=== PATIENT | male | born 1935 | race Caucasian/White ===

== ENCOUNTER → 2016-03-19 | Outpatient (CLI) | payer BC ==
[~2016-03-19] MED LIST: ACET-1138 PO; ASCO10003 PO; ASPEC325 PO; BUPR-79 PO; CYAN1TAB18 PO; DRGTP12 EX; FLUC100T4 PO; HYDR-5688 PO; LYR100 PO; METO25TA3 PO; MULT-506 PO; NIAC500T11 PO; NTRGSL/4 UT; OXYC-643 PO; OXYC1TAB3 PO; PANT40TA PO; POLYSOL OP; PYRI100T4 PO; RXC5 PO; SERT50TA PO; SILO8CAP PO; TAMS0.4C38 PO; TPRSR/25 PO; VITA1TAB4 PO; VTMB12 PO; ZVR400 PO; vitamin d3 PO
[2016-03-19 10:08] LABS: BASO ABS # 0.14 K/uL (0-0.2); BASOPHIL % 1.7 % (0-2); COMPLETE YES; ECHINOCYTES 1+; EOSINOPHIL % 1.7 %; LYMPH ABS # 0.14 K/uL (1.2-3.4); LYMPHOCYTE % 1.7 %; META ABS # 0.14 K/uL (0-0); METAMYELOCYTE % 1.7 %; MYELOCYTE % 3.5 %; POLYCHROMASIA 1+; TOXIC GRANULATION 1+; VACUOLIZATION 1+
[2016-03-21 12:08] LABS: WHITE BLOOD COUNT 9.69 K/uL (4.8-10.8)
[2016-03-21 12:09] LABS: HEMATOCRIT 38.7 % (42-52); MEAN CELL VOLUME 96.5 fL (80-100); MEAN CORPUSCULAR HEMOGLOBIN 34.2 pg (25-34); RED BLOOD COUNT 4.01 M/uL (4.7-6.1)
[2016-03-21 12:10] LABS: BASO % 2.7 %; EOS % 0.8 %; MEAN CORPUSCULAR HGB CONC 35.4 g/dl (32-36); MEAN PLATELET VOLUME 11.2 fL (7.4-10.4); PLATELET COUNT 133 K/uL (130-400)
== END | disposition home or self-care (01) ==
LOC: C.LAB 07:45
PROVIDERS: ATTEND Internal Medicine Hematology & Oncology
DX: Z85.72 Personal history of non-Hodgkin lymphomas (principal)

== ENCOUNTER → 2016-03-21 | Outpatient (CLI) | payer BC ==
[~2016-03-21] MED LIST changes: -HYDR-5688 PO; -LYR100 PO; -VTMB12 PO
[2016-03-21 13:02] LABS: HEMATOCRIT 41.2 % (42-52); MEAN CELL VOLUME 93.2 fL (80-100); MEAN CORPUSCULAR HEMOGLOBIN 31.4 pg (25-34); MEAN CORPUSCULAR HGB CONC 33.7 g/dl (32-36); MEAN PLATELET VOLUME 11.1 fL (7.4-10.4); PLATELET COUNT 111 K/uL (130-400); RED BLOOD COUNT 4.42 M/uL (4.7-6.1); WHITE BLOOD COUNT 9.18 K/uL (4.8-10.8)
[2016-03-21 14:08] LABS: DOHLE BODIES 1+; TEAR DROP CELLS 1+
[2016-03-21 14:34] LABS: COMPLETE YES; EOSINOPHIL % 1.7 %; META ABS # 0.24 K/uL (0-0); METAMYELOCYTE % 2.6 %; MYELOCYTE % 2.6 %; NEUTROPHILS % 81.9 %
== END | disposition home or self-care (01) ==
LOC: C.LAB 09:58
PROVIDERS: ATTEND Internal Medicine Hematology & Oncology
DX: Z85.72 Personal history of non-Hodgkin lymphomas (principal)

== ENCOUNTER 2016-03-22 06:41 | Observation (INO) | payer BC ==
[2016-03-20 21:11] VITALS: BMI 24.0
--- NOTE | 2016-03-21 10:28 | PAT Medication Instructions ---
Service Date Mar 21, 2016. Current Home Medication List Acyclovir (Acyclovir), 400 MG PO BID Ascorbic Acid (Vitamin C), 1,000 MG PO QAM Bupropion (Wellbutrin Sr), 150 MG PO QAM Cyanocobalamin (B-12), 1 TAB PO QAM Fluconazole (Diflucan), 100 MG PO QAM Metoprolol Succ (Toprol Xl) (Toprol-Xl), 12.5 MG PO QAM Multivitamin (Multivitamin), 1 TAB PO QAM Nitroglycerin (Nitrostat), 0.4 MG UT PRN Pantoprazole Sodium (Protonix), 40 MG PO QAM Pyridoxine (Vitamin B6), 100 MG PO QAM Tamsulosin Hcl (Flomax), 0.4 MG PO HS Vitamin E (Vitamin E), 1 TAB PO QAM Medication Instructions For Your Scheduled Surgery - Continue as directed: Nitroglycerin (Nitrostat), 0.4 MG UT PRN - Hold the following medications the morning of surgery: Ascorbic Acid (Vitamin C), 1,000 MG PO QAM Vitamin E (Vitamin E), 1 TAB PO QAM Multivitamin (Multivitamin), 1 TAB PO QAM Cyanocobalamin (B-12), 1 TAB PO QAM Pyridoxine (Vitamin B6), 100 MG PO QAM - Take the following medications the morning of surgery with a sip of water OTHERWISE NOTHING TO EAT OR DRINK AFTER MIDNIGHT: Metoprolol Succ (Toprol Xl) (Toprol-Xl), 12.5 MG PO QAM Pantoprazole Sodium (Protonix), 40 MG PO QAM Fluconazole (Diflucan), 100 MG PO QAM Acyclovir (Acyclovir), 400 MG PO BID Bupropion (Wellbutrin Sr), 150 MG PO QAM - Take the following medications as scheduled the night before surgery: Tamsulosin Hcl (Flomax), 0.4 MG PO HS Acyclovir (Acyclovir), 400 MG PO BID If you have any questions please call us at [phone] (Renetta Cormier PA-C ) or [phone] or [phone]
[2016-03-21 12:22] LABS: BUN/CREATININE RATIO 12.6 (10-20); CALCIUM 8.9 mg/dl (8.5-10.1); POTASSIUM 4.1 mmol/L (3.5-5.1)
--- NOTE | 2016-03-21 17:00 | HISTORY & PHYSICAL EXAMINATION ---
DATE OF ADMISSION: 03/22/2016 CHIEF COMPLAINT: Right Achilles tendon tear. HISTORY OF PRESENT ILLNESS: The patient is an 80-year-old gentleman seen and evaluated in our office for a right Achilles injury. MRI confirmed a right Achilles tendon repair. Due to his age and other medical comorbidities, the procedure, he is scheduled for a right Achilles tendon repair to be performed at the hospital. PAST MEDICAL HISTORY: Coronary artery disease, non-Hodgkin's lymphoma, melanoma. PAST SURGICAL HISTORY: Hernia repair, left knee replacement, right shoulder surgery, left shoulder, MOHS surgery x5 on his head. MEDICATIONS: Include Bupropion SA 150 mg daily, metoprolol 25 mg daily, acyclovir 400 mg twice daily, fluconazole 100 mg daily, tamsulosin 0.4 mg daily, vitamin C 1000 mg daily, vitamin B12 daily, vitamin E 400 IU daily, vitamin B6 daily. ALLERGIES: BAND-AID. SOCIAL HISTORY AND REVIEW OF SYSTEMS: Noncontributory. PHYSICAL EXAMINATION: GENERAL: Well-nourished, well-developed elderly male who appears stated age. HEENT: Normocephalic, atraumatic, extraocular movements intact, oropharynx pink and moist. NECK: Supple without adenopathy. LUNGS: Clear to auscultation bilaterally. HEART: Regular rate and rhythm. ABDOMEN: Soft, nontender, nondistended. EXTREMITIES: The upper extremity within normal limits. There is an obvious palpable defect in the Achilles tendon. He has a positive Lee sign. ASSESSMENT: Right Achilles tendon rupture. PLAN: Risks versus benefits were discussed. Consent was obtained. The patient's primary care physician is Dr. Ballesteros. Will proceed with right Achilles tendon repair upon preoperative workup and medical clearance. RHONA
[~2016-03-22] VITALS: Ht 167.6 cm; Wt 69.1 kg
[2016-03-22] VITALS (9 sets, daily range): BP systolic 103–130; BP diastolic 64–92; PULSE 75–98; TEMP 36.6–36.7; O2SAT 91–99; Ht 167.6 cm; Wt 69.1 kg
[~2016-03-22 06:41] MED LIST changes: -ACET-1138 PO; -ASPEC325 PO; +BUPIVACAINE 0.5 % 5 MG/1 ML PF 10ML VIAL ONE; +CEFAZOLIN 1000MG/55 ML D5W IV SCH; -DRGTP12 EX; +LACTATED RINGER'S 1000ML 1,000 ML IV SCH; -NIAC500T11 PO; -OXYC-643 PO; -OXYC1TAB3 PO; -POLYSOL OP; -RXC5 PO; -SERT50TA PO; -SILO8CAP PO; -TPRSR/25 PO; -vitamin d3 PO
[2016-03-22] MEDS ORDERED: LIDOCAINE HCL 2% 2 ML VIAL (20MG/ML) ONE (07:42)
[2016-03-22] MEDS ORDERED: PROPOFOL IV EMULSION 10 MG/ML 20 ML VIAL IV ONE (07:42)
[2016-03-22] MEDS ORDERED: FENTANYL CITRATE INJ 50 MCG/1 ML 2 ML VIAL ONE (07:42)
[2016-03-22] MEDS ORDERED: SUCCINYLCHOLINE CHLORIDE 20 MG/ML 10 ML VIAL IV ONE (07:42)
[2016-03-22] MEDS ORDERED: ONDANSETRON INJ 2 MG/ML 2 ML VIAL ONE (07:42)
--- NOTE | 2016-03-22 07:51 | History & Physical Bridge Note ---
H&P Re-Evaluation Bridge Note: I have examined the patient, reviewed the History & Physical and in the interval since the performance of the History & Physical I have noted the following changes of clinical significance: No changes noted
[2016-03-22] MEDS ORDERED: LACTATED RINGER'S 1000ML 1,000 ML IV PRN (07:52)
[2016-03-22] MEDS ORDERED: ONDANSETRON INJ 2 MG/ML 2 ML VIAL IV PRN ×2 (08:00→09:15)
[2016-03-22] MEDS ORDERED: EpHEDrine SULFATE 50MG/5ML SYR ONE (08:29)
[2016-03-22] MEDS ORDERED: PHENYLEPHRINE 100MCG/ML 5ML SYR ONE (08:29)
--- NOTE | 2016-03-22 08:41 | [facility] Post Operative Brief Note ---
Immediate Operative Summary Operative Date Mar 22, 2016. Pre-Operative Diagnosis achilloe ruptire r Post-Operative Diagnosis same Procedure(s) Performed repair above Surgeon Bertha Measurement Psychologist Surgeon(s) Milena Estimated Blood Loss 10cc Findings rupture Specimens none Disposition Recovery Room / PACU
[2016-03-22] MEDS ORDERED: BUPIVACAINE 0.25% ONE (08:50)
--- NOTE | 2016-03-22 08:59 | OPERATIVE REPORT ---
DATE OF OPERATION: 03/22/2016 PREOPERATIVE DIAGNOSIS: Achilles tendon rupture, right. POSTOPERATIVE DIAGNOSIS: Achilles tendon rupture, right. PROCEDURE: Repair of Achilles tendon, right. SURGEON: Dr. Stone. NANNY CAREGIVER: Adalberto Abbott PA-C. ANESTHESIA: Spinal. COMPLICATIONS: None. Mr. Abbott was essential through all portions of the case including prepping, draping, exposure, sales service assistant, wound closure, dressing and sling application. Following induction of adequate general anesthesia, the patient was placed prone on the operating table and the right leg was prepped and draped in usual sterile manner. Limb was exsanguinated with elevation and the tourniquet was inflated to 300 mmHg. Longitudinal incision made over the palpable Achilles defect. Subcutaneous tissue was sharply dissected, electrocautery was used for hemostasis. Peritenon was opened and hemorrhage was noted about the complete intrasubstance rupture of the Achilles tendon. This hemorrhage was removed. Using #5 FiberWire in a modified De La Vega fashion, the Achilles tendon was repaired. Additional reinforcing sutures using 0 Vicryl [id number] sutures were carried out peripherally. The wound was irrigated and closed using 2-0 Dexon and nylon. Sterile dressing of Adaptic, 4 x 4's, sterile Webril and a posterior plaster splint was applied. The patient tolerated the procedure well. I attest to the content of the Intraoperative Record and any orders documented therein. Any exceptio ns are noted below.
[2016-03-22] MEDS: FENTANYL CITRATE INJ 50 MCG/1 ML 2 ML VIAL IV PRN ×4 (09:11→09:26)
[2016-03-22] MEDS ORDERED: ALUMINUM/MAGNESIUM/SIMETH (MAALOX MAX) 30 ML UDC PO PRN (09:15)
[2016-03-22] MEDS ORDERED: ZOLPIDEM TARTRATE 5 MG TAB PO PRN (09:15)
[2016-03-22] MEDS ORDERED: NITROGLYCERIN 0.4 MG SL PER TAB CHARGE UT PRN (09:15)
[2016-03-22] MEDS ORDERED: METOCLOPRAMIDE HCL INJ 5 MG/ML 2 ML VIAL IV PRN (09:15)
[2016-03-22] MEDS ORDERED: MAGNESIUM HYDROXIDE SUSP 30 ML UDC PO PRN (09:15)
[2016-03-22] MEDS ORDERED: HYDROmorphone INJ 1 MG/ML SYR ONE (09:27)
[2016-03-22] MEDS ORDERED: NURSING VERBAL MED ORDER ONE ×2 (09:30→16:00)
--- NOTE | 2016-03-22 10:03 | Anesthesiology Progress Note ---
Anesthesia Post Op Note Date & Time Mar 22, 2016 at 10:02 Vital Signs Pain Intensity: 5.0 Vital Signs Past 12 Hours Date Time Temp Pulse Resp B/P Pulse Ox O2 Delivery O2 Flow Rate FiO2 03/22/16 09:40 36.5 03/22/16 09:38 110/72 03/22/16 09:37 83 16 94 03/22/16 09:37 83 03/22/16 09:34 114/79 03/22/16 09:32 84 17 03/22/16 09:32 85 17 99 03/22/16 09:28 109/67 03/22/16 09:27 81 16 96 03/22/16 09:27 81 03/22/16 09:23 118/71 03/22/16 09:22 80 03/22/16 09:22 80 16 98 03/22/16 09:18 123/78 03/22/16 09:17 81 14 99 03/22/16 09:17 81 14 03/22/16 09:13 140/89 03/22/16 09:12 84 16 99 03/22/16 09:12 84 16 03/22/16 09:08 118/76 03/22/16 09:07 85 15 98 03/22/16 09:07 85 15 03/22/16 09:05 115/72 03/22/16 09:02 36.3 82 16 115/72 99 Nasal Cannula 3 03/22/16 07:20 36.7 98 20 130/92 93 Room Air Notes Mental Status: alert / awake / arousable, participated in evaluation Pt Amnestic to Procedure: Yes Nausea / Vomiting: adequately controlled Pain: adequately controlled, improving with treatment Airway Patency, RR, SpO2: stable & adequate BP & HR: stable & adequate Hydration State: stable & adequate Anesthetic Complications: no major complications apparent Pt doing well. Pain improving.
[2016-03-22] MEDS ORDERED: OXYCODONE HCL IR 5 MG TAB (IMMEDIATE RELEASE) ONE (10:39)
[2016-03-22] MEDS: FERROUS GLUCONATE 324 MG TAB PO SCH ×2 (12:30→17:52)
[2016-03-22] MEDS: D5W AND 1/2NSS + 20MEQ KCL 1,000 ML IV SCH ×2 (13:01→21:39)
[2016-03-22] MEDS: ACETAMINOPHEN 500 MG TAB PO SCH ×2 (13:01→21:38)
[2016-03-22] MEDS: KETOROLAC TROMETHAMINE 15 MG/ML VIAL IV. SCH ×2 (13:10→19:22)
[2016-03-22] MEDS ORDERED: IV FLUIDS COMPLETED PRN (14:30)
[2016-03-22] MEDS: CEFAZOLIN IV 1,000 MG in DEXTROSE 5% 50ML 50 ML IV SCH ×2 (15:21→23:59)
[2016-03-22] MEDS: OXYCODONE HCL IR 5 MG TAB (IMMEDIATE RELEASE) PO PRN ×2 (15:21→21:43)
[2016-03-22] MEDS ORDERED: MoRPHine SULFATE 2 MG/ML CARP IV PRN (16:15)
[2016-03-22] MEDS: TAMSULOSIN HCL 0.4 MG CAP PO SCH (21:00)
[2016-03-22] MEDS: ACYCLOVIR 400 MG TAB PO SCH (21:39)
[2016-03-23] VITALS (7 sets, daily range): BP systolic 119–153; BP diastolic 47–81; PULSE 81–88; TEMP 36.4–36.9; O2SAT 92–100
[2016-03-23] MEDS: KETOROLAC TROMETHAMINE 15 MG/ML VIAL IV. SCH ×2 (02:28→08:06)
[2016-03-23] MEDS: ACETAMINOPHEN 500 MG TAB PO SCH ×3 (06:12→21:29)
--- NOTE | 2016-03-23 07:43 | Orthopedic Progress Note ---
Orthopedic Progress Note Date of Service Mar 23, 2016. Subjective Post OP Day: 1 Objective N/V intact, dressing C/D/I, toes mobile Date Time Temp Pulse Resp B/P Pulse Ox O2 Delivery O2 Flow Rate FiO2 03/23/16 02:47 36.4 82 14 119/47 94 Room Air 03/22/16 23:56 36.7 80 14 112/64 94 Room Air 03/22/16 19:20 Room Air 03/22/16 14:55 36.6 76 20 116/75 95 Room Air 03/22/16 13:15 75 16 117/71 91 Room Air 03/22/16 12:15 77 16 114/69 99 03/22/16 11:17 78 16 103/64 97 Nasal Cannula 2.0 03/22/16 10:52 95 Nasal Cannula 3.0 03/22/16 10:45 78 16 105/64 96 Nasal Cannula 2.0 03/22/16 10:15 36.7 83 16 106/66 95 Nasal Cannula 3.0 03/22/16 10:15 95 Nasal Cannula 3.0 03/22/16 10:01 82 15 95 03/22/16 10:01 82 15 03/22/16 09:58 107/66 03/22/16 09:56 82 14 94 03/22/16 09:56 81 14 03/22/16 09:53 111/71 03/22/16 09:51 82 13 03/22/16 09:51 82 13 93 03/22/16 09:49 104/62 03/22/16 09:46 82 20 03/22/16 09:46 82 20 96 03/22/16 09:43 108/68 03/22/16 09:41 84 13 96 03/22/16 09:41 89 13 03/22/16 09:40 36.5 03/22/16 09:38 110/72 03/22/16 09:37 83 16 94 03/22/16 09:37 83 03/22/16 09:34 114/79 03/22/16 09:32 84 17 03/22/16 09:32 85 17 99 03/22/16 09:28 109/67 03/22/16 09:27 81 16 96 03/22/16 09:27 81 03/22/16 09:23 118/71 03/22/16 09:22 80 1/5/17 09:22 80 16 98 03/22/16 09:18 123/78 03/22/16 09:17 81 14 99 03/22/16 09:17 81 14 03/22/16 09:13 140/89 03/22/16 09:12 84 16 99 03/22/16 09:12 84 16 03/22/16 09:08 118/76 03/22/16 09:07 85 15 98 03/22/16 09:07 85 15 03/22/16 09:05 115/72 03/22/16 09:02 36.3 82 16 115/72 99 Nasal Cannula 3 Assessment & Plan Assessment: 80 yo male stable POD #1 s/p right achilles tendon repair Plan: 1. Med management 2. DVT prophylaxis- ASA, TEDs, SCDs 3. PT/OT 4. D/C planning- pt interested in rehab
[2016-03-23] MEDS ORDERED: MULTIVITAMIN TAB PO SCH (09:00)
[2016-03-23] MEDS ORDERED: PANTOprazole SOD 40 MG TAB PO SCH (09:00)
--- NOTE | 2016-03-23 09:06 | Anesthesiology Progress Note ---
Anesthesia Post Op Note Date & Time Mar 23, 2016 at 09:05 Vital Signs Pain Intensity: 4.0 Vital Signs Past 12 Hours Date Time Temp Pulse Resp B/P Pulse Ox O2 Delivery O2 Flow Rate FiO2 03/23/16 02:47 36.4 82 14 119/47 94 Room Air 03/22/16 23:56 36.7 80 14 112/64 94 Room Air Notes Mental Status: alert / awake / arousable, participated in evaluation Pt Amnestic to Procedure: Yes Nausea / Vomiting: adequately controlled Pain: adequately controlled Airway Patency, RR, SpO2: stable & adequate BP & HR: stable & adequate Hydration State: stable & adequate Anesthetic Complications: no major complications apparent
[2016-03-23] MEDS: ASPIRIN 325 MG ECTAB PO SCH (09:22)
[2016-03-23] MEDS: MULTIVITAMIN TAB PO SCH (09:22)
[2016-03-23] MEDS: FERROUS GLUCONATE 324 MG TAB PO SCH ×4 (09:22→17:10)
[2016-03-23] MEDS: FLUCONAZOLE 100 MG TAB PO SCH (09:22)
[2016-03-23] MEDS: PANTOprazole SOD 40 MG TAB PO SCH (09:23)
[2016-03-23] MEDS: METOPROLOL SUCC 25MG EXT REL TAB PO SCH (09:23)
[2016-03-23] MEDS: PYRIDOXINE HCL 50 MG TAB PO SCH (09:24)
[2016-03-23] MEDS: ACYCLOVIR 400 MG TAB PO SCH ×2 (09:24→21:29)
[2016-03-23] MEDS: BuPROPion SR 150 MG TABCR PO SCH (09:24)
[2016-03-23] MEDS: OXYCODONE HCL IR 5 MG TAB (IMMEDIATE RELEASE) PO PRN (17:14)
[2016-03-23] MEDS: TAMSULOSIN HCL 0.4 MG CAP PO SCH (21:28)
[2016-03-24] MEDS: ACETAMINOPHEN 500 MG TAB PO SCH ×3 (05:57→21:08)
[2016-03-24 07:50] VITALS: BP 138/80; PULSE 80; TEMP 36.6; O2SAT 94
--- NOTE | 2016-03-24 08:14 | Orthopedic Progress Note ---
Orthopedic Progress Note Date of Service Mar 24, 2016. Subjective Post OP Day: 2 Reports: feeling well, pain controlled w PO medications, Denies: SOB, calf pain , chest pain, complaints, light headedness, nausea / vomiting Objective N/V intact, splint C/D/I, capillary refill less than 2 sec., dressing C/D/I, A& O x3, toes mobile Date Time Temp Pulse Resp B/P Pulse Ox O2 Delivery O2 Flow Rate FiO2 03/23/16 23:47 36.6 81 16 153/81 95 Room Air 03/23/16 23:40 Room Air 03/23/16 15:45 Room Air 03/23/16 14:55 36.8 88 16 144/76 92 Room Air 03/23/16 12:40 36.9 86 18 150/78 100 Room Air 03/23/16 10:25 95 Room Air 03/23/16 09:48 Room Air Assessment & Plan Assessment: 80 yo male stable POD #2 s/p right achilles tendon repair Plan: 1. Med management 2. DVT prophylaxis- ASA, TEDs, SCDs 3. PT/OT 4. D/C planning- awaiting approval for [facility] Discharge Planning Discharge Planning: uncertain
--- NOTE | 2016-03-24 08:17 | Discharge Instructions ---
Discharge Instructions Admission Reason for Admission: Right Heel Achilles Tendon Tear Discharge Discharge Diagnosis / Problem: s/p Right Achilles tendon repair Discharge Goals Goal(s): Decrease discomfort, Improve function, Increase independence Activity Recommendations Activity Level: Up Ad Clarisa Therapies: Weight Bearing Status (NWB right leg) Weightbearing Status: Right non-weightbearing . Additional Information Patient informed of condition: Yes Advance Directives: No DNR: No Level of Care: Acute Rehab Communicable Disease: No Prognosis: Stable Instructions / Follow-Up Instructions / Follow-Up ACTIVITY RECOMMENDATIONS: * You should remain non-weightbearing on your right leg SPECIAL CARE INSTRUCTIONS: * Some drainage onto the dressing is normal and is no cause for alarm. * Some swelling is natural especially after walking. When resting, keep your foot elevated above the level of your heart. * Call the doctor's office at if you notice increased drainage, fever over 101 degrees F. or severe constant pain. BANDAGE: * Leave bandage/cast in place unless otherwise directed. * Keep bandage/cast dry at all times. FOLLOW UP VISIT: If appointment is not already scheduled: Please call [facility] [place] to make a follow-up appointment after your surgery at . Current Hospital Diet Patient's current hospital diet: Regular Diet Discharge Diet Recommended Diet: Regular Diet Procedures Procedures Performed: repair above Pending Studies Studies pending at discharge: no Medical Emergencies . Who to Call and When: Medical Emergencies: If at any time you feel your situation is an emergency, please call [phone] immediately. . Non-Emergent Contact Non-Emergency issues call your: Primary Care Provider, Surgeon . . "Provider Documentation" section prepared by Tyrese Collins. Core Measure Problem Core Measures: None
[2016-03-24] MEDS ORDERED: ACET-1138 PO (08:18)
[2016-03-24] MEDS ORDERED: RXC5 PO (08:18)
[2016-03-24] MEDS ORDERED: ASPEC325 PO (08:18)
[2016-03-24] MEDS: MULTIVITAMIN TAB PO SCH (10:25)
[2016-03-24] MEDS: FERROUS GLUCONATE 324 MG TAB PO SCH ×3 (10:25→17:24)
[2016-03-24] MEDS: BuPROPion SR 150 MG TABCR PO SCH (10:26)
[2016-03-24] MEDS: METOPROLOL SUCC 25MG EXT REL TAB PO SCH (10:26)
[2016-03-24] MEDS: ASPIRIN 325 MG ECTAB PO SCH (10:26)
[2016-03-24] MEDS: ACYCLOVIR 400 MG TAB PO SCH ×2 (10:27→21:07)
[2016-03-24] MEDS: PANTOprazole SOD 40 MG TAB PO SCH (10:27)
[2016-03-24] MEDS: PYRIDOXINE HCL 50 MG TAB PO SCH (10:27)
[2016-03-24] MEDS: FLUCONAZOLE 100 MG TAB PO SCH (10:28)
[2016-03-24 11:45] VITALS: BP 140/82; PULSE 96; TEMP 36.9; O2SAT 96
[2016-03-24 16:09] VITALS: BP 130/79; PULSE 89; TEMP 37.1; O2SAT 96
[2016-03-24] MEDS: TAMSULOSIN HCL 0.4 MG CAP PO SCH (21:08)
[2016-03-24 23:09] VITALS: BP 158/96; PULSE 76; TEMP 36.6; O2SAT 96
[2016-03-25] MEDS: OXYCODONE HCL IR 5 MG TAB (IMMEDIATE RELEASE) PO PRN (01:19)
[2016-03-25] MEDS: ACETAMINOPHEN 500 MG TAB PO SCH (05:53)
--- NOTE | 2016-03-25 06:29 | Orthopedic Progress Note ---
Orthopedic Progress Note Date of Service Mar 25, 2016. Subjective Post OP Day: 3 Reports: feeling well, pain controlled w PO medications, Denies: SOB, calf pain , chest pain, complaints, light headedness, nausea / vomiting Objective N/V intact, splint C/D/I, capillary refill less than 2 sec., dressing C/D/I, A& O x3, toes mobile Date Time Temp Pulse Resp B/P Pulse Ox O2 Delivery O2 Flow Rate FiO2 03/24/16 23:09 36.6 76 14 158/96 96 Room Air 03/24/16 19:30 Room Air 03/24/16 16:09 37.1 89 16 130/79 96 Room Air 03/24/16 16:00 Room Air 03/24/16 11:45 36.9 96 16 140/82 96 Room Air 03/24/16 07:50 94 Room Air 03/24/16 07:50 36.6 80 16 138/80 94 Room Air Assessment & Plan Assessment: 80 yo male stable POD #3 s/p right achilles tendon repair Plan: 1. Med management 2. DVT prophylaxis- ASA, TEDs, SCDs 3. PT/OT 4. D/C planning- awaiting approval for [facility], will check w/ SS, if not approved , patient would like d/c home with PT Discharge Planning Discharge Planning: uncertain
--- NOTE | 2016-03-25 06:35 | Discharge Instructions ---
Discharge Instructions Admission Reason for Admission: Right Heel Achilles Tendon Tear Discharge Discharge Diagnosis / Problem: right achilles tendon repair Discharge Goals Goal(s): Decrease discomfort, Improve function, Increase independence Activity Recommendations Activity Limitations: as noted below Weightbearing Status: Right non-weightbearing . Instructions / Follow-Up Instructions / Follow-Up ACTIVITY RECOMMENDATIONS: * You should remain non-weightbearing on your right leg using walker SPECIAL CARE INSTRUCTIONS: * Some drainage onto the dressing is normal and is no cause for alarm. * Some swelling is natural especially after walking. When resting, keep your foot elevated above the level of your heart. * Call the doctor's office at if you notice increased drainage, fever over 101 degrees F. or severe constant pain. BANDAGE: * Leave bandage/cast in place unless otherwise directed. * Keep bandage/cast dry at all times. FOLLOW UP VISIT: If appointment is not already scheduled: Please call [facility] [place] to make a follow-up appointment after your surgery at . Current Hospital Diet Patient's current hospital diet: Regular Diet Discharge Diet Recommended Diet: Regular Diet Procedures Procedures Performed: repair above Pending Studies Studies pending at discharge: no Medical Emergencies . Who to Call and When: Medical Emergencies: If at any time you feel your situation is an emergency, please call [phone] immediately. . Non-Emergent Contact Non-Emergency issues call your: Primary Care Provider, Surgeon . "Provider Documentation" section prepared by Tyrese Collins. VTE Core Measure Inpt VTE Proph given/why not?: Shelia Bray
[2016-03-25 07:46] VITALS: BP 112/76; PULSE 80; TEMP 36.9; O2SAT 94
[2016-03-25] MEDS: FERROUS GLUCONATE 324 MG TAB PO SCH (08:30)
[2016-03-25] MEDS: FLUCONAZOLE 100 MG TAB PO SCH (08:39)
[2016-03-25] MEDS: MULTIVITAMIN TAB PO SCH (08:39)
[2016-03-25] MEDS: PYRIDOXINE HCL 50 MG TAB PO SCH (08:40)
[2016-03-25] MEDS: ASPIRIN 325 MG ECTAB PO SCH (08:40)
[2016-03-25] MEDS: PANTOprazole SOD 40 MG TAB PO SCH (08:40)
[2016-03-25] MEDS: ACYCLOVIR 400 MG TAB PO SCH (08:41)
[2016-03-25] MEDS: BuPROPion SR 150 MG TABCR PO SCH (08:41)
[2016-03-25] MEDS: METOPROLOL SUCC 25MG EXT REL TAB PO SCH (08:42)
[2016-03-25 09:37] VITALS: BP 112/76; PULSE 80; TEMP 36.9; O2SAT 94
--- NOTE | 2016-03-30 08:34 | DISCHARGE SUMMARY ---
CHIEF COMPLAINT: Right ankle pain. Please see complete history and physical examination. HOSPITAL COURSE: The patient underwent right Achilles tendon repair without complication. He tolerated the procedure well and was discharged to recovery room in stable condition. His postoperative course was relatively uneventful. Per the patient and his , they were trying to have the patient discharged to some type of nursing or rehab facility due to his age, his recent surgery, and his other medical comorbidities, however, this was denied and the patient ended up going home with home health on postoperative day 3. He tolerated physical therapy reasonably well as he was ambulating with a walker and nonweightbearing on the right lower extremity. He was started on aspirin for DVT prophylaxis. He was discharged home on postoperative day 3 and will continue with home health services. He will follow up in our office in approximately 10-14 days for his initial postop evaluation.
[2016-07-05] MEDS ORDERED: OXYC1TAB3 PO (11:26)
[2016-11-28] MEDS ORDERED: NIAC500T11 PO (09:35)
[2016-11-28] MEDS ORDERED: TPRSR/25 PO (09:35)
[2016-11-28] MEDS ORDERED: OXYC-643 PO (09:35)
[2016-11-28] MEDS ORDERED: vitamin d3 PO (09:35)
[2016-11-28] MEDS ORDERED: POLYSOL OP (09:35)
[2016-11-28] MEDS ORDERED: SILO8CAP PO (09:35)
[2016-11-28] MEDS ORDERED: SERT50TA PO (09:35)
[2016-11-28] MEDS ORDERED: DRGTP12 EX (09:35)
== END 2016-03-25 10:30 | disposition home or self-care (01) ==
LOC: ENRESERVTM → ENRESERVDT → C.ACU 06:41 → C.3E 09:14 → UNDOADMOB 09:14
DX: S86.091A Other specified injury of right Achilles tendon, initial encounter (principal); X58.XXXA Exposure to other specified factors, initial encounter; I25.10 Atherosclerotic heart disease of native coronary artery without angina pectoris; Z96.652 Presence of left artificial knee joint

== ENCOUNTER → 2016-05-01 | Outpatient (CLI) | payer BC ==
[~2016-05-01] MED LIST changes: +ACET-1138 PO; +ASPEC325 PO; -BUPIVACAINE 0.5 % 5 MG/1 ML PF 10ML VIAL ONE; -CEFAZOLIN 1000MG/55 ML D5W IV SCH; +DRGTP12 EX; -LACTATED RINGER'S 1000ML 1,000 ML IV SCH; +NIAC500T11 PO; +OXYC-643 PO; +OXYC1TAB3 PO; +POLYSOL OP; +RXC5 PO; +SERT50TA PO; +SILO8CAP PO; +TPRSR/25 PO; +vitamin d3 PO
[2016-05-01 09:51] LABS: CHOLESTEROL/HDL RATIO 4.7
== END | disposition home or self-care (01) ==
LOC: C.LAB1850 07:50
PROVIDERS: ATTEND Internal Medicine Cardiovascular Disease
DX: E78.00 Pure hypercholesterolemia, unspecified (principal)

== ENCOUNTER → 2016-07-05 | Outpatient (CLI) | payer BC ==
[2016-07-05 09:29] LABS: ALT/SGPT 21 U/L (12-78); BLOOD UREA NITROGEN 15 mg/dl (7-18); BUN/CREATININE RATIO 16.2 (10-20); CARBON DIOXIDE 29 mmol/L (21-32); CHLORIDE 106 mmol/L (98-107); CREATININE 0.92 mg/dl (0.60-1.40); GLUCOSE 107 mg/dl (70-99); POTASSIUM 4.2 mmol/L (3.5-5.1); SODIUM 142 mmol/L (136-145)
[2016-07-05 09:48] LABS: ALB/GLOB RATIO 1.2 (0.9-2); ALKALINE PHOSPHATASE 28 U/L (45-117); AST/SGOT 15 U/L (15-37); CALCIUM 8.9 mg/dl (8.5-10.1)
== END | disposition home or self-care (01) ==
LOC: C.LAB 08:21
PROVIDERS: ATTEND Internal Medicine
DX: C85.10 Unspecified B-cell lymphoma, unspecified site (principal)

== ENCOUNTER → 2016-07-06 | Day surgery (SDC) | payer BC ==
[2016-07-05 11:30] VITALS: Ht 167.6 cm; Wt 70.5 kg
[~2016-07-06] VITALS: Ht 167.6 cm; Wt 70.5 kg
[~2016-07-06] MED LIST changes: -ACET-1138 PO; -ASPEC325 PO; +ATROPINE SULFATE 0.1 MG/ML 5ML SYR IV PRN; +BUPIVACAINE 0.5 % 5 MG/1 ML PF 10ML VIAL ONE; +CEFAZOLIN 1000MG/55 ML D5W IV SCH; +DEXAMETHASONE SOD INJ 4 MG/ML VIAL ONE; +EpHEDrine SULFATE INJ 50 MG/ML AMP IV PRN; +FENTANYL CITRATE INJ 50 MCG/1 ML 2 ML VIAL IV PRN; +FENTANYL CITRATE INJ 50 MCG/1 ML 2 ML VIAL ONE; +HYDROCODONE/ACETAMOPHEN 5/325MG TAB PO PRN; +LACTATED RINGER'S 1000ML 1,000 ML IV SCH; +LIDOCAINE HCL 1% 20 ML VIAL ONE; +LIDOCAINE HCL 2% 2 ML VIAL (20MG/ML) ONE; +METOCLOPRAMIDE HCL INJ 5 MG/ML 2 ML VIAL IV PRN; +MIDAZOLAM HCL 1 MG/ML 2ML VIAL ONE; +ONDANSETRON INJ 2 MG/ML 2 ML VIAL IV PRN; +ONDANSETRON INJ 2 MG/ML 2 ML VIAL ONE; +OXYCODONE/ACETAMINOPHEN 5-325 TAB PO PRN; +PHENOL EZ SWABS 89% APPLICATOR EX ONE; +PROPOFOL IV EMULSION 10 MG/ML 20 ML VIAL IV ONE; -RXC5 PO; +SILVER SULFADIAZINE 1% CR 50 GM JAR EXT ONE; +SODIUM CHLORIDE 0.9% 1000ML 1,000 ML IV SCH
--- NOTE | 2016-07-06 12:53 | Discharge Instructions-SurgCtr ---
Discharge Instructions Date of Service Jul 06, 2016. Visit Reason for Visit: Right Ingrown Toenail, Pain Discharge Discharge Diagnosis / Problem: right hallux lateral nail border ingrown toenail Discharge Goals Goal(s): Decrease discomfort, Improve function Activity Recommendations Activity Limitations: resume your previous activity Lifting Limitations: no more than 10 pounds Exercise/Sports Limitations: rest today May Resume Sexual Activity: when tolerated Shower/Bathe: tomorrow Driving or Machine Use: no limitations Weightbearing Status: Right weightbearing (as tolerated) Anesthesia . Post Anesthesia Instructions: If you have had General Anesthesia or IV Sedation: * Do not drive today. * Resume driving when surgeon permits. * Do not make important decisions or sign legal documents today. * Call surgeon for: 1. Temperature elevations greater than 101 degrees F. 2. Uncontrollable pain. 3. Excessive bleeding. 4. Persistent nausea and vomiting. 5. Medication intolerance (nausea, vomiting or rash). * For nausea and vomiting use only clear liquids such as: tea, soda, bouillon until nausea subsides, then gradually increase diet as tolerated. * If you have any concerns or questions, call your surgeon's office. If physician is unavailable and it is an emergency, call 911 or go to the nearest emergency room. . Instructions / Follow-Up Instructions / Follow-Up change daily and apply silvadene ointment with bandaid keep clean daily Diet Recommendations Home Diet: no limitations Procedures Procedures Performed: Right Hallux Lateral Nail Border Surgical Partial Nail Avulsion With Chemical Matrixectomy Pending Studies Studies pending at discharge: no Medical Emergencies . Who to Call and When: Medical Emergencies: If at any time you feel your situation is an emergency, please call 911 immediately. . Non-Emergent Contact Non-Emergency issues call your: Primary Care Provider Call Non-Emergent contact if: temperature is above 101.5 . . "Provider Documentation" section prepared by Dinorah Duarte. . [place] Drug Monitoring Program Search Results: see additional documentation (no narcotics sent)
--- NOTE | 2016-07-06 12:54 | [facility] Post Operative Brief Note ---
Immediate Operative Summary Operative Date Jul 06, 2016. Pre-Operative Diagnosis Right Ingrown Toenail, Pain Post-Operative Diagnosis same Procedure(s) Performed Right Hallux Lateral Nail Border Surgical Partial Nail Avulsion With Chemical Matrixectomy Surgeon Dr. Ascencion Bray Tipple Supervisor Surgeon(s) 0 Estimated Blood Loss 0 Findings nail right hallux Specimens none Drains none Anesthesia local iv sedation Complication(s) None Disposition Recovery Room / PACU stable
[2016-07-06 12:57] VITALS: TEMP 37.5
[2016-07-06 13:36] VITALS: BP 122/74; PULSE 81; O2SAT 96
--- NOTE | 2016-07-06 13:41 | Anesthesia Progress Nt - [facility] ---
Anesthesia Post Op Note Date & Time Jul 06, 2016 at 13:41 Vital Signs Pain Intensity: 0 Vital Signs Past 12 Hours Date Time Temp Pulse Resp B/P Pulse Ox O2 Delivery O2 Flow Rate FiO2 07/06/16 13:36 81 22 122/74 96 Room Air 07/06/16 12:57 37.5 75 16 109/65 95 Room Air 07/06/16 11:11 36.8 86 16 132/86 95 Room Air Notes Mental Status: alert / awake / arousable, participated in evaluation Pt Amnestic to Procedure: Yes Nausea / Vomiting: adequately controlled Pain: adequately controlled Airway Patency, RR, SpO2: stable & adequate BP & HR: stable & adequate Hydration State: stable & adequate Anesthetic Complications: no major complications apparent
--- NOTE | 2016-07-06 18:35 | OPERATIVE REPORT ---
DATE OF OPERATION: 07/06/2016 SURGEON: Dinorah Duarte DPM PREOPERATIVE DIAGNOSIS: Painful hallux lateral nail border ingrown toenail. POSTOPERATIVE DIAGNOSIS: Same. PROCEDURE: Right hallux lateral nail border removal with partial nail avulsion with chemical matrixectomy. ANESTHESIA: Local IV sedation. No tourniquet was used. BLOOD LOSS: 1 mL. PROCEDURE FOLLOWS: The patient was brought in the operating room and placed in the supine position. The right lower extremity was prepped and draped in the usual sterile manner. A 1:1 mixture of 1% lidocaine plain and 0.5% Marcaine was utilized to anesthetize the right hallux in a ring block. At this time, a timeout was taken. Anesthesia was induced. The procedure began. The freer elevator was used to free up the lateral nail border of the right hallux. Utilizing the scissors, the lateral nail border was cut and the hemostat was used to remove the area, phenol was applied followed by Silvadene dressings. Compressive and corrective dressings were applied. The patient good hemodynamically responsive to the right hallux, taken to the recovery room with all vital signs stable and intact. He will follow up with me in the office in 1 week. Made aware of all risks and benefits. The patient signed consent for the procedure, he opted for this in the OR, because he could not take the pain of the procedure done in the office. I attest to the content of the Intraoperative Record and any orders documented therein. Any exceptions are noted below. RHONA
== END | disposition home or self-care (01) ==
LOC: X.SURG 10:37
PROVIDERS: ATTEND Podiatrist
DX: L60.0 Ingrowing nail (principal); M20.11 Hallux valgus (acquired), right foot; M20.41 Other hammer toe(s) (acquired), right foot; M20.12 Hallux valgus (acquired), left foot; I70.293 Other atherosclerosis of native arteries of extremities, bilateral legs; I25.10 Atherosclerotic heart disease of native coronary artery without angina pectoris; I25.2 Old myocardial infarction; Z91.040 Latex allergy status; Z85.72 Personal history of non-Hodgkin lymphomas; E78.00 Pure hypercholesterolemia, unspecified; Z87.891 Personal history of nicotine dependence; Z96.659 Presence of unspecified artificial knee joint; E66.3 Overweight; Z68.25 Body mass index [BMI] 25.0-25.9, adult

== ENCOUNTER → 2016-10-24 | Outpatient (CLI) | payer BC ==
[~2016-10-24] MED LIST changes: -ATROPINE SULFATE 0.1 MG/ML 5ML SYR IV PRN; -BUPIVACAINE 0.5 % 5 MG/1 ML PF 10ML VIAL ONE; -CEFAZOLIN 1000MG/55 ML D5W IV SCH; -DEXAMETHASONE SOD INJ 4 MG/ML VIAL ONE; -EpHEDrine SULFATE INJ 50 MG/ML AMP IV PRN; -FENTANYL CITRATE INJ 50 MCG/1 ML 2 ML VIAL IV PRN; -FENTANYL CITRATE INJ 50 MCG/1 ML 2 ML VIAL ONE; -HYDROCODONE/ACETAMOPHEN 5/325MG TAB PO PRN; -LACTATED RINGER'S 1000ML 1,000 ML IV SCH; -LIDOCAINE HCL 1% 20 ML VIAL ONE; -LIDOCAINE HCL 2% 2 ML VIAL (20MG/ML) ONE; -METOCLOPRAMIDE HCL INJ 5 MG/ML 2 ML VIAL IV PRN; -MIDAZOLAM HCL 1 MG/ML 2ML VIAL ONE; -ONDANSETRON INJ 2 MG/ML 2 ML VIAL IV PRN; -ONDANSETRON INJ 2 MG/ML 2 ML VIAL ONE; -OXYCODONE/ACETAMINOPHEN 5-325 TAB PO PRN; -PHENOL EZ SWABS 89% APPLICATOR EX ONE; -PROPOFOL IV EMULSION 10 MG/ML 20 ML VIAL IV ONE; -SILVER SULFADIAZINE 1% CR 50 GM JAR EXT ONE; -SODIUM CHLORIDE 0.9% 1000ML 1,000 ML IV SCH
[2016-10-24 09:55] LABS: CHOLESTEROL/HDL RATIO 5.8
== END | disposition home or self-care (01) ==
LOC: C.LAB1850 07:26
PROVIDERS: ATTEND Internal Medicine Cardiovascular Disease
DX: E78.00 Pure hypercholesterolemia, unspecified (principal)

== ENCOUNTER → 2016-11-15 | Outpatient (CLI) | payer BC ==
--- NOTE | 2016-11-16 08:34 | DIAGNOSTIC IMAGING REPORT ---
BONE SCAN WHOLE BODY CLINICAL HISTORY: Lymphoma with skeletal pain. COMPARISON STUDY: PET/CT November 14, 2014. TECHNIQUE: 26.683 mCi of technetium 99m MDP was injected IV at 12:20 PM on November 15, 2016. Whole body imaging was performed in the anterior and posterior projections 3 hours following injection. FINDINGS: Expected soft tissue and renal activity is present. Photopenia from a left knee arthroplasty is noted. Uptake within the left first carpometacarpal joint, shoulders, sternoclavicular joint and left midfoot is degenerative. No suspicious radiotracer uptake is identified on this examination. IMPRESSION: No skeletal radiotracer uptake identified to suggest a neoplastic process. Electronically signed by: Alfred Babcock M.D. 11/16/2016 8:33 AM Dictated Date/Time: 11/15/2016 4:08 PM
== END | disposition home or self-care (01) ==
LOC: C.NUCL 11:49
PROVIDERS: ATTEND Internal Medicine Hematology & Oncology
DX: Z85.72 Personal history of non-Hodgkin lymphomas (principal)

== ENCOUNTER 2016-12-03 07:30 | Day surgery (SDC) | payer BC ==
[2016-11-28 09:12] VITALS: BMI 24.0
--- NOTE | 2016-11-28 09:56 | PAT Medication Instructions ---
Service Date Nov 28, 2016. Current Home Medication List Acyclovir (Acyclovir), 400 MG PO BID Ascorbic Acid (Vitamin C), 1,000 MG PO QAM Bupropion (Wellbutrin Sr), 150 MG PO QAM Cyanocobalamin (B-12), 1 TAB PO QAM Fentanyl (Fentanyl), 1 PATCH EX CQ72HR Fluconazole (Diflucan), 100 MG PO QAM Metoprolol Succinate (Metoprolol Succinate ER), 0.5 TAB PO QAM Multivitamin (Multivitamin), 1 TAB PO QAM Niacin (Niacin), 500 MG PO QAM Nitroglycerin (Nitrostat), 0.4 MG UT PRN Oxycodone/Acetaminophen 5MG/325MG (Oxycodone/Acetaminophen 5MG/325MG), 1-2 TABLETS PO Q4H PRN for Pain Pantoprazole Sodium (Protonix), 40 MG PO QAM PRN for Indigestion Polyvinyl Alcohol-Povidone (Op (Refresh), 1 DROP OP DAILY PRN for DRYNESS Pyridoxine (Vitamin B6), 100 MG PO QAM Sertraline (Zoloft), 1 TAB PO QAM Silodosin (Rapaflo), 4 MG PO HS Vitamin E (Vitamin E), 1 TAB PO QAM [vitamin d3], 400 MG PO QAM Medication Instructions For Your Scheduled Surgery - Continue as directed: Nitroglycerin (Nitrostat), 0.4 MG UT PRN Fentanyl (Fentanyl), 1 PATCH EX CQ72HR - Hold the following medications as of 11/29/16: Vitamin E (Vitamin E), 1 TAB PO QAM - Hold the following medications the morning of surgery: Ascorbic Acid (Vitamin C), 1,000 MG PO QAM Cyanocobalamin (B-12), 1 TAB PO QAM Multivitamin (Multivitamin), 1 TAB PO QAM Niacin (Niacin), 500 MG PO QAM [vitamin d3], 400 MG PO QAM Pyridoxine (Vitamin B6), 100 MG PO QAM - Take the following medications the morning of surgery with a sip of water OTHERWISE NOTHING TO EAT OR DRINK AFTER MIDNIGHT: Acyclovir (Acyclovir), 400 MG PO BID Pantoprazole Sodium (Protonix), 40 MG PO QAM PRN for Indigestion Bupropion (Wellbutrin Sr), 150 MG PO QAM Oxycodone/Acetaminophen 5MG/325MG (Oxycodone/Acetaminophen 5MG/325MG), 1-2 TABLETS PO Q4H PRN for Pain Metoprolol Succinate (Metoprolol Succinate ER), 0.5 TAB PO QAM Sertraline (Zoloft), 1 TAB PO QAM Fluconazole (Diflucan), 100 MG PO QAM Polyvinyl Alcohol-Povidone (Op (Refresh), 1 DROP OP DAILY PRN for DRYNESS - Take the following medications as scheduled the night before surgery: Acyclovir (Acyclovir), 400 MG PO BID Oxycodone/Acetaminophen 5MG/325MG (Oxycodone/Acetaminophen 5MG/325MG), 1-2 TABLETS PO Q4H PRN for Pain Silodosin (Rapaflo), 4 MG PO HS Polyvinyl Alcohol-Povidone (Op (Refresh), 1 DROP OP DAILY PRN for DRYNESS If you have any questions please call us at [phone] or [phone] or [phone]
[2016-11-28 10:32] LABS: URINE APPEARANCE CLOUDY (CLEAR); URINE BILIRUBIN NEG (NEG); URINE COLOR YELLOW; URINE NITRITE NEG (NEG); URINE PH 6.5 (4.5-7.5); URINE SPECIFIC GRAVITY 1.022 (1.000-1.030); UROBILINOGEN NEG (NEG)
[2016-11-28 10:33] LABS: MANUAL MICROSCOPIC REQUIRED? NO; REVIEW REQ? NO
--- NOTE | 2016-11-28 10:45 | DIAGNOSTIC IMAGING REPORT ---
CHEST PREADMISSION(PA/LAT) HISTORY: Preop. COMPARISON: Chest 11/21/2015. FINDINGS: Postoperative changes are again noted within the shoulders. The lungs are clear. No pleural effusions. No pneumothorax. Mildly tortuous thoracic aorta. The heart is normal in size. IMPRESSION: No acute process. Electronically signed by: Cornelius Love M.D. 11/28/2016 10:44 AM Dictated Date/Time: 11/28/2016 10:41 AM
[~2016-12-03] VITALS: Ht 167.6 cm; Wt 68.1 kg
[~2016-12-03 07:30] MED LIST changes: +CIPROFLOXACIN / D5W 400 MG IV SCH; +LACTATED RINGER'S 1000ML 1,000 ML IV SCH; -METO25TA3 PO; -OXYC1TAB3 PO; -TAMS0.4C38 PO
[2016-12-03] MEDS ORDERED: ONDANSETRON INJ 2 MG/ML 2 ML VIAL IV PRN (07:45)
[2016-12-03] MEDS ORDERED: ATROPINE SULFATE 0.1 MG/ML 5ML SYR IV PRN (07:45)
[2016-12-03] MEDS ORDERED: EpHEDrine SULFATE INJ 50 MG/ML AMP IV PRN (07:45)
[2016-12-03] MEDS ORDERED: FENTANYL CITRATE INJ 50 MCG/1 ML 2 ML VIAL IV PRN (07:45)
[2016-12-03 08:38] VITALS: BP 118/75; PULSE 75; TEMP 36.8; O2SAT 95; Ht 167.6 cm; Wt 68.1 kg
[2016-12-03] MEDS ORDERED: FENTANYL CITRATE INJ 50 MCG/1 ML 2 ML VIAL ONE (09:46)
[2016-12-03] MEDS ORDERED: PROPOFOL IV EMULSION 10 MG/ML 20 ML VIAL IV ONE (09:46)
[2016-12-03] MEDS ORDERED: LIDOCAINE HCL 2% 2 ML VIAL (20MG/ML) ONE (09:46)
[2016-12-03] MEDS ORDERED: PHENYLEPHRINE 100MCG/ML 5ML SYR ONE (10:50)
[2016-12-03] MEDS ORDERED: ONDANSETRON INJ 2 MG/ML 2 ML VIAL ONE (10:50)
--- NOTE | 2016-12-03 11:02 | Anesthesiology Progress Note ---
Anesthesia Post Op Note Date & Time Dec 03, 2016 at 11:01 Vital Signs Pain Intensity: 0 Vital Signs Past 12 Hours Date Time Temp Pulse Resp B/P (MAP) Pulse Ox O2 Delivery O2 Flow Rate FiO2 12/03/16 08:38 36.8 75 20 118/75 (89) 95 Room Air Notes Mental Status: alert / awake / arousable, participated in evaluation Pt Amnestic to Procedure: Yes Nausea / Vomiting: adequately controlled Pain: adequately controlled Airway Patency, RR, SpO2: stable & adequate BP & HR: stable & adequate Hydration State: stable & adequate Anesthetic Complications: no major complications apparent Patient seen at 1101. He is awake and conversant. VSS. Denies any anesthesia complications.
--- NOTE | 2016-12-03 11:03 | [facility] Operative Report ---
Operative Report Operative Date Dec 03, 2016. Pre-Operative Diagnosis Nocturia Post-Operative Diagnosis Nocturia Procedure(s) Performed Cystoscopy Surgeon Dr. Pritchard Hat Mender Surgeon(s) none Estimated Blood Loss 0 cc Findings Very healthy urethra - no strictures. Relatively small prostate. Healthy appearing bladder. Specimens none per surgeon Drains none Anesthesia mac Complication(s) None Disposition Recovery Room / PACU (stable) Indications urinary frequency/nocturia Description of Procedure Rajat Velez was identified in the preoperative area. After review of consents, he was transported to the operating room and received appropriate sedation. He was prepped and draped in sterile fashion. I inserted a 22F cystoscope with 30degree lens. He had no evidence of stricture disease. He has a small prostate - non-obstructing. Bladder was inspected with a 30 and 70 degree lens - no evidence of any mucosal abnormalities. Grade 1 trabeculation at most. Cystoscope was removed after emptying his bladder, and he was reversed from anesthesia and taken to the PACU in stable condition. I attest to the content of the Intraoperative Record and any orders documented therein. Any exceptions are noted below.
[2016-12-03 11:38] VITALS: BP 112/61; PULSE 57; TEMP 37; O2SAT 95
[2016-12-03 12:05] VITALS: BP 131/63; PULSE 67; TEMP 36.7; O2SAT 95
--- NOTE | 2016-12-03 12:05 | Discharge Instructions ---
Discharge Instructions Date of Service Dec 03, 2016. Admission Reason for Admission: Urinary Frequency, Naturia Discharge Discharge Diagnosis / Problem: urinary frequency Discharge Goals Goal(s): Decrease discomfort, Improve function, Increase independence, Improve disease control Activity Recommendations Activity Limitations: resume your previous activity Lifting Limitations: none Exercise/Sports Limitations: none May Resume Sexual Activity: when tolerated Shower/Bathe: no limitations Driving or Machine Use: resume 1 day after discharge . Instructions / Follow-Up Instructions / Follow-Up Please keep your previously scheduled follow up appointment. Discharge Diet Recommended Diet: Regular Diet Procedures Procedures Performed: Cystoscopy Pending Studies Studies pending at discharge: no Laboratory Results Lipid Panel Test 10/24/16 07:29 Range/Units Triglycerides Level 235 H 0-150 mg/dl Cholesterol Level 237 H 0-200 mg/dl HDL Cholesterol 41 mg/dl Cholesterol/HDL Ratio 5.8 LDL Cholesterol, Calculated 149 mg/dl Medical Emergencies . Who to Call and When: Medical Emergencies: If at any time you feel your situation is an emergency, please call 911 immediately. . Non-Emergent Contact Non-Emergency issues call your: Urologist Call Non-Emergent contact if: you have a fever, temperature is above 101.5, your pain is not controlled, your pain is worsening . . "Provider Documentation" section prepared by Kendell Bill. . VTE Core Measure Inpt VTE Proph given/why not?: Treatment not indicated
== END 2016-12-03 12:25 | disposition home or self-care (01) ==
LOC: C.ACU 07:30
PROVIDERS: ATTEND Urology
DX: R35.1 Nocturia (principal); N40.0 Benign prostatic hyperplasia without lower urinary tract symptoms; N13.8 Other obstructive and reflux uropathy; C85.10 Unspecified B-cell lymphoma, unspecified site; I25.10 Atherosclerotic heart disease of native coronary artery without angina pectoris; F32.9 Major depressive disorder, single episode, unspecified; E78.00 Pure hypercholesterolemia, unspecified; I10 Essential (primary) hypertension; I25.2 Old myocardial infarction; M19.90 Unspecified osteoarthritis, unspecified site; Z85.828 Personal history of other malignant neoplasm of skin; Z79.899 Other long term (current) drug therapy

== ENCOUNTER 2017-05-02 13:46 | Emergency (ER) | payer BC ==
[~2017-05-02] VITALS: Ht 167.6 cm; Wt 62.4 kg
[~2017-05-02 13:46] MED LIST changes: -CIPROFLOXACIN / D5W 400 MG IV SCH; -LACTATED RINGER'S 1000ML 1,000 ML IV SCH; -POLYSOL OP; +POLYSOL OPR
[2017-05-02] MEDS ORDERED: SODIUM CHLORIDE 0.9% 1000ML 1,000 ML IV STA (13:52)
[2017-05-02 13:58] VITALS: TEMP 37.3; Ht 167.6 cm; Wt 62.4 kg
[2017-05-02 14:17] LABS: HEMATOCRIT 38.8 % (42-52); MEAN CELL VOLUME 94.4 fL (80-100); MEAN CORPUSCULAR HEMOGLOBIN 31.6 pg (25-34); MEAN CORPUSCULAR HGB CONC 33.5 g/dl (32-36); MEAN PLATELET VOLUME 10.7 fL (7.4-10.4); PLATELET COUNT 138 K/uL (130-400); RED CELL DISTRIBUTION WIDTH CV 14.5 % (11.5-14.5); RED CELL DISTRIBUTION WIDTH SD 49.6 fL (36.4-46.3); WHITE BLOOD COUNT 3.82 K/uL (4.8-10.8)
[2017-05-02 14:28] LABS: PTT PATIENT 21.6 SECONDS (21.0-31.0)
[2017-05-02] MEDS ORDERED: LIDOCAINE/EPINEPH/TETRACAINE 1 EA SYR EXT STA (14:33)
--- NOTE | 2017-05-02 14:33 | DIAGNOSTIC IMAGING REPORT ---
HEAD WITHOUT CONTRAST (CT) CLINICAL HISTORY: 81 years-old Male with fall, head lac. Acute head injury status post fall TECHNIQUE: Multiple axial CT images of the head were obtained without contrast. A dose lowering technique was utilized adhering to the principles of ALARA. CT DOSE: 1014.22 mGy.cm COMPARISON: CT head 11/21/2015. FINDINGS: No acute intracranial hemorrhage, midline shift, intracranial mass, hydrocephalus, territorial ischemia or abnormal extra-axial collection. Mild atrophy with ex vacuo ventriculomegaly. Senescent calcifications are seen within the lentiform nuclei. Ill-defined areas of low-attenuation within the subcortical white matter suggest chronic microvascular ischemic changes. The calvarium is intact. The paranasal sinuses, mastoid air cells, and middle ear cavities are clear. There is mild left parietal scalp soft tissue swelling foci of subcutaneous emphysema suggesting laceration. No opaque foreign body. Orbits appear unremarkable. IMPRESSION: 1. No acute intracranial abnormality or calvarial fracture. 2. Mild left parietal scalp soft tissue swelling with foci of subcutaneous emphysema suggesting laceration. No opaque foreign body. The above report was generated using voice recognition software. It may contain grammatical, syntax or spelling errors. Electronically signed by: Dawson Pryor M.D. 05/02/2017 2:31 PM Dictated Date/Time: 05/02/2017 2:28 PM
--- NOTE | 2017-05-02 14:35 | DIAGNOSTIC IMAGING REPORT ---
CHEST 1 VW FRONT-NOT PORTABLE CLINICAL HISTORY: EVALUATE WEAKNESS dyspnea COMPARISON STUDY: 11/28/2016 FINDINGS: Mild parenchymal prominence both lung bases. Minimal segmental atelectasis left midlung. Upper lungs are clear. Patient is status post left shoulder arthroplasty. IMPRESSION: Mild bibasilar infiltrative versus atelectatic change. The above report was generated using voice recognition software. It may contain grammatical, syntax or spelling errors. Electronically signed by: Tyrese Brewer M.D. 05/02/2017 2:34 PM Dictated Date/Time: 05/02/2017 2:33 PM
--- NOTE | 2017-05-02 14:35 | DIAGNOSTIC IMAGING REPORT ---
CT OF THE CERVICAL SPINE WITHOUT CONTRAST CLINICAL HISTORY: Fall. COMPARISON STUDY: PET/CT November 15, 2014. TECHNIQUE: Helical axial images of the cervical spine were obtained without IV contrast. Sagittal and coronal reconstructions were viewed. A dose lowering technique was utilized adhering to the principles of ALARA. FINDINGS: No acute cervical spine fracture is identified. Craniocervical junction is intact. A calcific density along the right superolateral aspect of the dens is unchanged since PET/CT of November 15, 2014. This is chronic. Severe multilevel facet arthrosis is noted with moderate degenerative disc disease most pronounced at C5-C6. There is no prevertebral edema. IMPRESSION: No acute cervical spine fracture or subluxation. Electronically signed by: Alfred Babcock M.D. 05/02/2017 2:34 PM Dictated Date/Time: 05/02/2017 2:29 PM
[2017-05-02 14:37] LABS: ALBUMIN 3.2 gm/dl (3.4-5.0); ALT/SGPT 19 U/L (12-78); AST/SGOT 16 U/L (15-37); BLOOD UREA NITROGEN 21 mg/dl (7-18); CALCIUM 9.3 mg/dl (8.5-10.1); CARBON DIOXIDE 32 mmol/L (21-32); CREATININE 1.15 mg/dl (0.60-1.40); GLUCOSE 99 mg/dl (70-99); POTASSIUM 4.5 mmol/L (3.5-5.1); SODIUM 140 mmol/L (136-145)
[2017-05-02 14:48] LABS: ALKALINE PHOSPHATASE 30 U/L (45-117); CKMB 0.6 ng/ml (0.5-3.6); TOTAL PROTEIN 6.3 gm/dl (6.4-8.2)
--- NOTE | 2017-05-02 14:56 | EMERGENCY ROOM VISIT NOTE ---
History Report prepared by Aidan: William Gilbert Under the Supervision of: Dr. Varghese Mondragon M.D. First contact with patient: 13:51 Chief Complaint: FALL Stated Complaint: DIZZINESS/FALL/LACERATION History of Present Illness The patient is a 81 year old male who presents to the Emergency Room with complaints of an episode of falling that occurred prior to arrival. The patient states that he was mildly lightheaded when he was going to get water. He reports that he is unsure why, but states that he fell backwards hitting his head on the ground. The patient states following the incident, he developed two lacerations. The episode leading to the fall was very brief. He states he was feeling well prior to. He denies any palpitations or presyncopal symptoms. The patient denies LOC, headache, visual changes, neck pain, chest pain, breathing difficulties, nausea, vomiting, abdominal pain, back pain, extremity pain, numbness, weakness, active bleeding, or other complaints. Source of History: patient Onset: ER MANAGER Position: other (global) Quality: other (global) Timing: other (one episode) Note: Associated symptoms: lightheadedness, head lacerations Review of Systems See HPI for pertinent positives and negatives. A total of ten systems were reviewed and were otherwise negative. Past Medical & Surgical Medical Problems: (1) Coronary Atherosclerosis Of [place] Coronary Vessel (2) Herpes zoster (3) Hypertension Nos (4) Hypotension (5) Neutropenia (6) Rupture of right Achilles tendon Surgical Problems: (1) Knee Joint Replacement Status (2) Rotator cuff tear arthropathy Family History Patient reports no known family medical history. Social History Smoking Status: Former Smoker Alcohol Use: heavy Drug Use: none Marital Status: Housing Status: lives with significant other Occupation Status: retired Current/Historical Medications Scheduled Acyclovir (Acyclovir), 400 MG PO BID Bupropion (Wellbutrin Sr), 150 MG PO QAM Fentanyl (Fentanyl), 1 PATCH EX [id number] Fluconazole (Diflucan), 100 MG PO QAM Metoprolol Succinate (Metoprolol Succinate ER), 0.5 TAB PO QAM Multivitamin (Multivitamin), 1 TAB PO QAM Nitroglycerin (Nitrostat), 0.4 MG UT PRN Sertraline (Zoloft), 1 TAB PO QAM Silodosin (Rapaflo), 4 MG PO HS Scheduled PRN Oxycodone/Acetaminophen 5MG/325MG (Oxycodone/Acetaminophen 5MG/325MG), 1-2 TABLETS PO Q4H PRN for Pain Pantoprazole Sodium (Protonix), 40 MG PO QAM PRN for Indigestion Polyvinyl Alcohol-Povidone (Op (Refresh), 1 DROP OPR BID PRN for DRYNESS Allergies Coded Allergies: Latex (Verified Allergy, Unknown, RASH, 05/02/17) NO KNOWN DRUG ALLERGIES (Verified Allergy, Unknown, ., 05/02/17) Adhesives (Verified Adverse Reaction, Mild, Tape - rash, 05/02/17) Physical Exam Vital Signs Date Time Temp Pulse Resp B/P (MAP) Pulse Ox O2 Delivery O2 Flow Rate FiO2 05/02/17 19:32 66 16 122/76 98 05/02/17 18:27 79 16 111/74 98 Nasal Cannula 2.0 05/02/17 17:37 79 18 139/80 98 Nasal Cannula 2.0 05/02/17 17:36 99 Nasal Cannula 2.0 05/02/17 16:56 87 18 122/64 93 Room Air 05/02/17 16:35 88 18 92/77 93 Room Air 05/02/17 15:51 82 05/02/17 15:20 82 18 127/64 94 Room Air 05/02/17 15:20 94 Room Air 05/02/17 15:20 94 Room Air 05/02/17 13:58 37.3 86 18 143/94 96 Room Air Physical Exam GENERAL: Awake, alert, well appearing, no distress HEAD: C shaped 9 cm and 5 cm linear laceration to the right aspect. No diaz sign. No raccoon eyes. EYES: Normal conjunctiva. PERRL. Pupils are surgically altered EARS: External ears normal. Right TM normal. Left TM normal. NOSE: Atraumatic OROPHARYNX: Lips, tongue, and mucosa unremarkable. No erythema or exudate. NECK: Supple, full range of motion. No tracheal deviation or JVD. No posterior midline tenderness. No step offs noted. RESPIRATORY: CTA bilaterally CARDIAC: Normal rate, normal rhythm. ABDOMEN: Inspection reveals no abnormalities. Soft, non distended. No tenderness to palpation. No hernias. BACK: No midline step offs or tenderness to palpation. Unremarkable. PELVIS: Stable to rock. SKIN: Normal. LYMPH: No adenopathy. MUSCULOSKELETAL: Upper and lower extremities are atraumatic. NEURO: GCS 15. Normal sensorium. No sensory or motor deficits noted. Medical Decision & Procedures ER Provider Diagnostic Interpretation: Radiology results as stated below per my review and radiologist interpretation: HEAD WITHOUT CONTRAST (CT) CLINICAL HISTORY: 81 years-old Male with fall, head lac. Acute head injury status post fall TECHNIQUE: Multiple axial CT images of the head were obtained without contrast. A dose lowering technique was utilized adhering to the principles of ALARA. CT DOSE: 1014.22 mGy.cm COMPARISON: CT head 11/21/2015. FINDINGS: No acute intracranial hemorrhage, midline shift, intracranial mass, hydrocephalus, territorial ischemia or abnormal extra-axial collection. Mild atrophy with ex vacuo ventriculomegaly. Senescent calcifications are seen within the lentiform nuclei. Ill-defined areas of low-attenuation within the subcortical white matter suggest chronic microvascular ischemic changes. The calvarium is intact. The paranasal sinuses, mastoid air cells, and middle ear cavities are clear. There is mild left parietal scalp soft tissue swelling foci of subcutaneous emphysema suggesting laceration. No opaque foreign body. Orbits appear unremarkable. IMPRESSION: 1. No acute intracranial abnormality or calvarial fracture. 2. Mild left parietal scalp soft tissue swelling with foci of subcutaneous emphysema suggesting laceration. No opaque foreign body. The above report was generated using voice recognition software. It may contain grammatical, syntax or spelling errors. Electronically signed by: Dawson Pryor M.D. 05/02/2017 2:31 PM Dictated Date/Time: 05/02/2017 2:28 PM CHEST 1 VW FRONT-NOT PORTABLE CLINICAL HISTORY: EVALUATE WEAKNESS dyspnea COMPARISON STUDY: 11/28/2016 FINDINGS: Mild parenchymal prominence both lung bases. Minimal segmental atelectasis left midlung. Upper lungs are clear. Patient is status post left shoulder arthroplasty. IMPRESSION: Mild bibasilar infiltrative versus atelectatic change. The above report was generated using voice recognition software. It may contain grammatical, syntax or spelling errors. Electronically signed by: Tyrese Brewer M.D. 05/02/2017 2:34 PM Dictated Date/Time: 05/02/2017 2:[address] OF THE CERVICAL SPINE WITHOUT CONTRAST CLINICAL HISTORY: Fall. COMPARISON STUDY: PET/CT November 15, 2014. TECHNIQUE: Helical axial images of the cervical spine were obtained without IV contrast. Sagittal and coronal reconstructions were viewed. A dose lowering technique was utilized adhering to the principles of ALARA. FINDINGS: No acute cervical spine fracture is identified. Craniocervical junction is intact. A calcific density along the right superolateral aspect of the dens is unchanged since PET/CT of November 15, 2014. This is chronic. Severe multilevel facet arthrosis is noted with moderate degenerative disc disease most pronounced at C5-C6. There is no prevertebral edema. IMPRESSION: No acute cervical spine fracture or subluxation. Electronically signed by: Alfred Babcock M.D. 05/02/2017 2:34 PM Dictated Date/Time: 05/02/2017 2:29 PM Laboratory Results 05/02/17 14:00 Red Blood Count 4.11, Mean Corpuscular Volume 94.4, Mean Corpuscular Hemoglobin 31.6, Mean Corpuscular Hemoglobin Concent 33.5, Mean Platelet Volume 10.7, Neutrophils (%) (Auto) 84.0, Lymphocytes (%) (Auto) 6.5, Monocytes (%) (Auto) 7.6, Eosinophils (%) (Auto) 0.8, Basophils (%) (Auto) 0.3, Neutrophils # (Auto) 3.21, Lymphocytes # (Auto) 0.25, Monocytes # (Auto) 0.29, Eosinophils # (Auto) 0.03, Basophils # (Auto) 0.01 05/02/17 14:00 Test 05/02/17 14:00 White Blood Count 3.82 K/uL (4.8-10.8) Red Blood Count 4.11 M/uL (4.7-6.1) Hemoglobin 13.0 g/dL (14.0-18.0) Hematocrit 38.8 % (42-52) Mean Corpuscular Volume 94.4 fL (80-100) Mean Corpuscular Hemoglobin 31.6 pg (25-34) Mean Corpuscular Hemoglobin Concent 33.5 g/dl (32-36) Platelet Count 138 K/uL (130-400) Mean Platelet Volume 10.7 fL (7.4-10.4) Neutrophils (%) (Auto) 84.0 % Lymphocytes (%) (Auto) 6.5 % Monocytes (%) (Auto) 7.6 % Eosinophils (%) (Auto) 0.8 % Basophils (%) (Auto) 0.3 % Neutrophils # (Auto) 3.21 K/uL (1.4-6.5) Lymphocytes # (Auto) 0.25 K/uL (1.2-3.4) Monocytes # (Auto) 0.29 K/uL (0.11-0.59) Eosinophils # (Auto) 0.03 K/uL (0-0.5) Basophils # (Auto) 0.01 K/uL (0-0.2) RDW Standard Deviation 49.6 fL (36.4-46.3) RDW Coefficient of Variation 14.5 % (11.5-14.5) Immature Granulocyte % (Auto) 0.8 % Immature Granulocyte # (Auto) 0.03 K/uL (0.00-0.02) Toxic Granulation 2+ Prothrombin Time 10.0 SECONDS (9.0-12.0) Prothromb Time International Ratio 1.0 (0.9-1.1) Activated Partial Thromboplast Time 21.6 SECONDS (21.0-31.0) Partial Thromboplastin Ratio 0.8 Urine Color DK YELLOW Urine Appearance CLEAR (CLEAR) Urine pH 5.5 (4.5-7.5) Urine Specific [place] 1.019 (1.000-1.030) Urine Protein NEG (NEG) Urine Glucose (UA) NEG (NEG) Urine Ketones NEG (NEG) Urine Occult Blood NEG (NEG) Urine Nitrite NEG (NEG) Urine Bilirubin NEG (NEG) Urine Urobilinogen NEG (NEG) Urine Leukocyte Esterase NEG (NEG) Anion Gap 6.0 mmol/L (3-11) Est Creatinine Clear Calc Drug Dose 44.5 ml/min Estimated GFR () 68.8 Estimated GFR (Non- 59.4 BUN/Creatinine Ratio 18.3 (10-20) Calcium Level 9.3 mg/dl (8.5-10.1) Magnesium Level 2.4 mg/dl (1.8-2.4) Total Bilirubin 0.3 mg/dl (0.2-1) Direct Bilirubin 0.1 mg/dl (0-0.2) Aspartate Amino Transf (AST/SGOT) 16 U/L (15-37) Alanine Aminotransferase (ALT/SGPT) 19 U/L (12-78) Alkaline Phosphatase 30 U/L (45-117) Total Creatine Kinase 22 U/L (39-308) Creatine Kinase MB 0.6 ng/ml (0.5-3.6) Creatine Kinase MB Ratio 2.7 (0-3.0) Troponin I < 0.015 ng/ml (0-0.045) Total Protein 6.3 gm/dl (6.4-8.2) Albumin 3.2 gm/dl (3.4-5.0) Thyroid Stimulating Hormone (TSH) 3.760 uIu/ml (0.300-4.500) Laboratory results reviewed by me Medications Administered Medications (Trade) Dose Ordered Sig/Dylan Route Start Time Stop Time Status Last Admin Dose Admin Tetracaine/ Epinephrine/ Lidocaine (L.e.t. Gel 4%/ 1:100/0.5%) 1 ea UD STAT EXT 05/02/17 14:33 05/02/17 14:34 DC 05/02/17 14:33 1 EA Midazolam HCl (Versed Inj) 0.5 mg NOW STAT IV 05/02/17 16:07 05/02/17 16:08 DC 05/02/17 17:34 0.5 MG Procedure Location: scalp Total length: 5 and 9 cm Complexity: intermediate two layer closure Verbal consent was obtained after the risks and benefits were explained, including but not limited to bleeding, scarring, infection, pain, and bone/joint /nerve damage. At this time, the risks of the procedure are less than the risks of NOT performing the procedure. A time out was taken and the correct patient and site identified. The skin was prepped with betadine. The target area was anesthetized with 7 ml of 1% lidocaine without epinephrine and l.e.t gel. Copious irrigation was performed using saline. The skin was re-prepped with betadine and a sterile field set. The wound was explored for foreign bodies and none found. Examination revealed no injury to deep structures such as tendons, bone, or significant blood vessels. Debridement was not performed. The wound edges were approximated using 5, 4-0 simple Vicryl simple sutures and 20, 5-0 nylon simple sutures. Hemostasis and excellent approximation was achieved. Antibacterial ointment and a sterile dressing applied. Detailed wound care instructions and signs and symptoms of infection reviewed with the the patient. No complications and the patient tolerated the procedure well. ECG Per My Interpretation Indication: weakness Rate (beats per minute): 80 Rhythm: normal sinus Findings: LBBB, no acute ischemic change, left axis deviation, no ectopy Comparison ECG Date: 11/28/16 Change: no significant change ED Course 1354: The patient was evaluated in room C07. A complete history and physical exam was performed. 1433: Ordered Tetracaine/ Epinephrine/Lidocaine 1 each EXT. 1528: I reevaluated the patient and he is doing well. 1607: Ordered Versed Injection 0.5 mg IV. 1729: I performed a laceration repair. See procedure notes for further details. 1738: Ordered Lidocaine HCl 20 ml INFIL. 1828: I reevaluated the patient. Discussed results and discharge instructions: He verbalized understanding and agreement. The patient is ready for discharge. Medical Decision Prior records/ancillary studies reviewed. Triage Nursing notes reviewed and agree them. Additional history obtained from EMS. The patient's history was concerning for traumatic head injury Differential diagnosis: Etiologies such as contusion, fracture, subdural hematoma, concussion, epidural hematoma, intraparenchymal hemorrhage, as well as other traumatic pathologies were entertained. Physical examination findings: As above. ER treatment provided: Let gel IV saline hydration Laceration repair On reassessment the patient felt significantly better. He ambulated without difficulty. Diagnostics interpreted by me: ECG: Unchanged from prior. Normal sinus. The labs revealed unremarkable chemistry panel and CBC. The patient's urinalysis was unremarkable. Imaging studies: CT scans as above The patient had a very brief episode of dizziness that resulted in losing his balance. He fell backwards and struck his head. He was given a half milligram dose of Versed prior to his laceration repair because the patient was extremely anxious about his procedure. The patient did exceptionally well with the laceration repair. Due to the volume in emergency department and his workup the patient was observed for many hours. He had no additional symptoms. He felt well. He was given dinner. He ambulated. Close follow-up with his primary physician was recommended. He has an appointment tomorrow. The patient also was given instructions to follow-up in 7 days for suture removal. If he worsens in any way he will be back to the Emergency Room. I discussed this with him and his extensively.I gave my usual and customary discussion regarding this issue. By the evaluation outlined above other emergent etiologies such as those listed in the differential, as well as others, were deemed relatively unlikely. The patient was educated about the findings as listed above. All questions were answered and the patient was pleased with the treatment. Return instructions were outlined and the patient was discharged in stable condition. The patient was referred to his PCP for follow-up for a recheck of the current condition. Medication Reconcilliation Current Medication List: was personally reviewed by me Blood Pressure Screening Patient's blood pressure: Normal blood pressure Impression Primary Impression: Scalp laceration Additional Impressions: Closed head injury Fall Scribe Attestation The scribe's documentation has been prepared under my direction and personally reviewed by me in its entirety. I confirm that the note above accurately reflects all work, treatment, procedures, and medical decision making performed by me. Departure Information Dispostion Home / Self-Care Referrals Timmy Ballesteros M.D. (PCP) Forms HOME CARE DOCUMENTATION FORM, IMPORTANT VISIT INFORMATION Patient Instructions My [facility] Additional Instructions Bacitracin to wounds once daily. Use a non-stick dressing such as a large band-aid. Change the dressings once a day. Tylenol as needed for pain. Continue current medications. Allow your wounds to air dry several hours per day when you are resting, but it is a good idea to keep them covered while sleeping to prevent irritation and the sheets sticking to the wound. Apply direct pressure for any bleeding. Return to the ER immediately for spreading redness, fevers, pus-like drainage, headache, passing out, additional falls, severe pain, or as needed. Return to the ER in 7 days for suture/staple removal, or sooner as needed. Follow-up with your primary as scheduled tomorrow. Problem Qualifiers
[2017-05-02 15:02] LABS: BASO % 0.3 %; BASO ABS # 0.01 K/uL (0-0.2); EOS % 0.8 %; EOS ABS # 0.03 K/uL (0-0.5); IG# 0.03 K/uL (0.00-0.02); LYMPH % 6.5 %; LYMPH ABS # 0.25 K/uL (1.2-3.4); MONO % 7.6 %; MONO ABS # 0.29 K/uL (0.11-0.59); NEUT ABS # 3.21 K/uL (1.4-6.5)
[2017-05-02] MEDS ORDERED: MIDAZOLAM HCL 1 MG/ML 2ML VIAL IV STA (16:07)
[2017-05-02 17:36] VITALS: O2SAT 99
[2017-05-02] MEDS ORDERED: XYLOCAINE 1%/SOD BICARB 20 ML VIAL INFIL ONE (17:38)
[2017-05-02 19:32] VITALS: BP 122/76; PULSE 66; O2SAT 98
== END 2017-05-02 19:32 | disposition home or self-care (01) ==
LOC: EDBD 13:46 → C.EDC 13:50
DX: S01.01XA Laceration without foreign body of scalp, initial encounter (principal); S09.90XA Unspecified injury of head, initial encounter; W18.30XA Fall on same level, unspecified, initial encounter; R42 Dizziness and giddiness; I25.10 Atherosclerotic heart disease of native coronary artery without angina pectoris; B02.9 Zoster without complications; I10 Essential (primary) hypertension; D70.9 Neutropenia, unspecified; F10.10 Alcohol abuse, uncomplicated; Z96.659 Presence of unspecified artificial knee joint; Z87.891 Personal history of nicotine dependence

== ENCOUNTER 2017-07-10 15:46 | Inpatient (IN) | payer BC, OTHER ==
[~2017-07-10] VITALS: Ht 167.6 cm; Wt 57.4 kg
[~2017-07-10 15:46] MED LIST changes: -ASCO10003 PO; -CYAN1TAB18 PO; -DRGTP12 EX; +DRGTP12 TOP; -NIAC500T11 PO; -NTRGSL/4 UT; -PYRI100T4 PO; -VITA1TAB4 PO; -vitamin d3 PO
[2017-07-10] MEDS ORDERED: SODIUM CHLORIDE 0.9% 1000ML 1,000 ML IV STA (16:12)
[2017-07-10] MEDS ORDERED: SODIUM CHLORIDE 0.9% 500ML 500 ML IV STA (16:12)
--- NOTE | 2017-07-10 16:38 | DIAGNOSTIC IMAGING REPORT ---
CHEST ONE VIEW PORTABLE CLINICAL HISTORY: productive cough COMPARISON STUDY: May 02, 2017 FINDINGS: The heart is normal in size. There is aortic tortuosity/ectasia. There is no overt failure. There is no lobar consolidation. There is minor chronic basilar interstitial thickening at the lung bases. There are postsurgical changes of a reverse total left shoulder arthroplasty. Arthritic changes are present within the right shoulder. There are no significant pleural effusions.[ IMPRESSION: Stable chronic basilar interstitial thickening/atelectasis. No acute findings. Electronically signed by: Leroy Cheek M.D. 07/10/2017 4:37 PM Dictated Date/Time: 07/10/2017 4:36 PM
[2017-07-10] MEDS ORDERED: FLUC200T4 PO (17:04)
[2017-07-10] MEDS ORDERED: WLLSR150 PO (17:04)
[2017-07-10] MEDS ORDERED: SILO4CAP PO (17:04)
[2017-07-10] MEDS ORDERED: MULT-1093 PO (17:07)
--- NOTE | 2017-07-10 17:08 | EMERGENCY ROOM VISIT NOTE ---
History Report prepared by Aidan: Tracy Chavez Under the Supervision of: Dr. Varghese Mondragon M.D. First contact with patient: 16:02 Chief Complaint: OTHER COMPLAINT Stated Complaint: AMBULATING PROBLEMS, LACK OF BALANCE, History of Present Illness The patient is an 81 year old male who presents to the Emergency Room brought in by EMS with complaints of persistent general weakness for several weeks. The patient has a history of cancer. Per , the patient's oncologist wanted the patient evaluated in the ED for further care. The patient reports difficulty walking and balance problems. He notes that he cannot stand well on his own. Per , the patient notes loss of appetite and generalized weakness. She notes today was the first time he had gotten dressed in three months. The patient reports having left-sided chest pain last night. He took NTG for the pain. He rated the pain a 6/10 in severity. Per , the patient has decreased urination in the last two weeks. He denies any back pain, though per , the patient complains frequently of an achy back. He has a baseline mild cough with mucus production. Per , the patient has fallen a couple of times since his last visit to the ED. Pt denies LOC, headache, fevers, chills, diaphoresis, visual changes, breathing difficulties, nausea, vomiting, abdominal pain, melena , hematochezia, urinary symptoms, numbness, lymphadenopathy, rash, or other complaints. Source of History: patient, spouse/significant other Onset: for several weeks Position: other (general) Quality: other (weakness) Timing: other (persistent) Associated Symptoms: + cough, + chest pain, + back pain, + urinary symptoms (decreased urination) Note: Notes loss of appetite, difficulty walking, and balance issues. Review of Systems See HPI for pertinent positives and negatives. A total of ten systems were reviewed and were otherwise negative. Past Medical & Surgical Medical Problems: (1) Acute renal failure (2) Coronary Atherosclerosis Of [place] Coronary Vessel (3) Herpes zoster (4) Hypertension Nos (5) Hypotension (6) Neutropenia (7) Rupture of right Achilles tendon Surgical Problems: (1) Knee Joint Replacement Status (2) Rotator cuff tear arthropathy Family History Patient reports no known family medical history. Social History Smoking Status: Never Smoker Alcohol Use: heavy Drug Use: none Marital Status: Housing Status: lives with significant other Occupation Status: retired Current/Historical Medications Scheduled Acyclovir (Acyclovir), 400 MG PO BID Bupropion HCl (Bupropion HCl Sr), 150 MG PO QAM Fentanyl (Fentanyl), 1 PATCH TOP CQ72HR Fluconazole (Diflucan), 200 MG PO QAM Metoprolol Succinate (Metoprolol Succinate ER), 12.5 MG PO QAM Multiple Vitamins W/ Minerals (Centrum Silver 50+Men), 1 TAB PO DAILY Silodosin (Rapaflo), 4 MG PO HS Scheduled PRN Nitroglycerin (Nitrostat), 0.4 MG UT UD PRN for Chest Pain Oxycodone/Acetaminophen 5MG/325MG (Oxycodone/Acetaminophen 5MG/325MG), 1 TAB PO Q4-6 HRS PRN for Pain Pantoprazole Sodium (Protonix), 40 MG PO QAM PRN for Indigestion Polyvinyl Alcohol-Povidone (Op (Refresh), 1 DROP OPR BID PRN for Dryness Allergies Coded Allergies: Latex (Verified Allergy, Unknown, RASH, 05/02/17) NO KNOWN DRUG ALLERGIES (Verified Allergy, Unknown, ., 05/02/17) Adhesives (Verified Adverse Reaction, Mild, Tape - rash, 05/02/17) Physical Exam Vital Signs Date Time Temp Pulse Resp B/P (MAP) Pulse Ox O2 Delivery O2 Flow Rate FiO2 07/10/17 19:00 79 14 128/75 95 Room Air 07/10/17 18:42 77 13 135/79 98 Room Air 07/10/17 16:48 136/83 124/84 95/66 07/10/17 16:46 82 17 112/72 96 Room Air 07/10/17 16:22 95/66 07/10/17 16:21 85 07/10/17 16:20 124/84 07/10/17 16:19 136/83 07/10/17 16:06 36.5 85 18 150/85 98 Room Air 07/10/17 15:53 150/85 Physical Exam GENERAL: Awake, alert, frail-appearing, in no distress. Mildly cachectic. HENT: Normocephalic, atraumatic. Oropharynx unremarkable. EYES: Normal conjunctiva. Sclera non-icteric. Pupils surgically altered. NECK: Supple. No nuchal rigidity. FROM. No masses. RESPIRATORY: Clear to auscultation. No wheezes. No rales. Normal respiratory effort. CARDIAC: Normal rate. Normal rhythm. No murmurs. No rubs. Extremities warm and well perfused. Pulses equal. No JVD. GI: Soft, non-distended. No tenderness to palpation. No rebound or guarding. No masses. RECTAL: Deferred. MUSCULOSKELETAL: Atraumatic. Chest examination reveals no tenderness. The back is symmetrical on inspection without obvious abnormality. Fentanyl patch present right upper back. There is no CVA tenderness to palpation. No joint edema. Generalized muscular atrophy present. LOWER EXTREMITIES: Calves are equal size bilaterally and non-tender. No edema. No discoloration. NEURO: Normal sensorium. No sensory or motor deficits noted. SKIN: No rash or jaundice noted. Medical Decision & Procedures ER Provider Diagnostic Interpretation: Radiology results as stated below per my review and radiologist interpretation: CHEST ONE VIEW PORTABLE CLINICAL HISTORY: productive cough COMPARISON STUDY: May 02, 2017 FINDINGS: The heart is normal in size. There is aortic tortuosity/ectasia. There is no overt failure. There is no lobar consolidation. There is minor chronic basilar interstitial thickening at the lung bases. There are postsurgical changes of a reverse total left shoulder arthroplasty. Arthritic changes are present within the right shoulder. There are no significant pleural effusions.[ IMPRESSION: Stable chronic basilar interstitial thickening/atelectasis. No acute findings. Electronically signed by: Leroy Cheek M.D. 07/10/2017 4:37 PM Dictated Date/Time: 07/10/2017 4:[address] HEAD WITHOUT CONTRAST (CT) CLINICAL HISTORY: Generalized weakness. Falls. History of carcinoma. COMPARISON STUDY: 05/02/2017 TECHNIQUE: Axial CT of the brain is performed from the vertex to the skull base. IV contrast was not administered for this examination. A dose lowering technique was utilized adhering to the principles of ALARA. CT DOSE: 638.56 mGycm FINDINGS: No intra or extra-axial mass lesions are visualized. There is no CT evidence of acute cortical infarction. There is no evidence of midline shift. There is no acute hemorrhage. No calvarial fractures are visualized. There are minimal white matter hypodensities likely on a small vessel basis. There is mild ventricular dilatation. This has slowly progressed when compared the prior studies. This is likely secondary to global volume loss. There is no evidence of acute sinusitis IMPRESSION: No acute intracranial findings Electronically signed by: Leroy Cheek M.D. 07/10/2017 5:27 PM Dictated Date/Time: 07/10/2017 5:23 PM Laboratory Results 07/10/17 16:45 Red Blood Count 3.20, Mean Corpuscular Volume 97.5, Mean Corpuscular Hemoglobin 35.6, Mean Corpuscular Hemoglobin Concent 36.5, Mean Platelet Volume 10.5, Neutrophils (%) (Auto) 21.4, Lymphocytes (%) (Auto) 17.9, Monocytes (%) (Auto) 60.7, Eosinophils (%) (Auto) 0.0, Basophils (%) (Auto) 0.0, Neutrophils # (Auto ) 0.12, Lymphocytes # (Auto) 0.10, Monocytes # (Auto) 0.34, Eosinophils # (Auto ) 0.00, Basophils # (Auto) 0.00 07/10/17 16:45 Test 07/10/17 16:45 White Blood Count 0.56 K/uL (4.8-10.8) Red Blood Count 3.20 M/uL (4.7-6.1) Hemoglobin 11.4 g/dL (14.0-18.0) Hematocrit 31.2 % (42-52) Mean Corpuscular Volume 97.5 fL (80-100) Mean Corpuscular Hemoglobin 35.6 pg (25-34) Mean Corpuscular Hemoglobin Concent 36.5 g/dl (32-36) Platelet Count 115 K/uL (130-400) Mean Platelet Volume 10.5 fL (7.4-10.4) Neutrophils (%) (Auto) 21.4 % Lymphocytes (%) (Auto) 17.9 % Monocytes (%) (Auto) 60.7 % Eosinophils (%) (Auto) 0.0 % Basophils (%) (Auto) 0.0 % Neutrophils # (Auto) 0.12 K/uL (1.4-6.5) Lymphocytes # (Auto) 0.10 K/uL (1.2-3.4) Monocytes # (Auto) 0.34 K/uL (0.11-0.59) Eosinophils # (Auto) 0.00 K/uL (0-0.5) Basophils # (Auto) 0.00 K/uL (0-0.2) RDW Standard Deviation 46.2 fL (36.4-46.3) RDW Coefficient of Variation 13.5 % (11.5-14.5) Immature Granulocyte % (Auto) 0.0 % Immature Granulocyte # (Auto) 0.00 K/uL (0.00-0.02) Toxic Granulation 1+ Large Platelets 1+ Anion Gap 4.0 mmol/L (3-11) Est Creatinine Clear Calc Drug Dose 13.4 ml/min Estimated GFR () 17.2 Estimated GFR (Non- 14.8 BUN/Creatinine Ratio 12.8 (10-20) Calcium Level 12.3 mg/dl (8.5-10.1) Total Bilirubin 0.4 mg/dl (0.2-1) Direct Bilirubin 0.1 mg/dl (0-0.2) Aspartate Amino Transf (AST/SGOT) 15 U/L (15-37) Alanine Aminotransferase (ALT/SGPT) 16 U/L (12-78) Alkaline Phosphatase 31 U/L (45-117) Troponin I < 0.015 ng/ml (0-0.045) Total Protein 6.4 gm/dl (6.4-8.2) Albumin 3.2 gm/dl (3.4-5.0) Lipase 127 U/L (73-393) Procalcitonin 0.29 ng/ml (0-0.5) Laboratory results reviewed by me Medications Administered Medications (Trade) Dose Ordered Sig/Dylan Route Start Time Stop Time Status Last Admin Dose Admin Sodium Chloride 1,000 ml @ 125 mls/hr Q8H STAT IV 07/10/17 16:12 07/10/17 21:32 DC 07/10/17 16:48 125 MLS/HR Sodium Chloride 500 ml @ 999 mls/hr Q31M STAT IV 07/10/17 16:12 07/10/17 16:42 DC 07/10/17 17:59 999 MLS/HR Sodium Chloride 1,000 ml @ 75 mls/hr [id number] IV 07/10/17 19:46 08/09/17 19:45 07/10/17 21:52 75 MLS/HR ECG Per My Interpretation Indication: weakness Rate (beats per minute): 81 Rhythm: normal sinus Findings: LBBB, no acute ischemic change, left axis deviation, no ectopy ED Course 1605: The patient was evaluated in room A3. A complete history and physical exam was performed. 1612: Ordered Sodium Chloride 500 ml @ 999 mls/hr IV and Sodium Chloride 1,000 ml @ 125 mls/hr IV 1712: The patient's orthostatics are positive. 1730: I reassessed the patient at this time. He ate more than half of his dinner. He is feeling better 175: I reassessed the patient at this time. I updated the patient. 181: I spoke with Brayan Rowland [facility] hospitalist. We discussed the patient's case. The patient will be evaluated by the [facility] for further management. Medical Decision Prior records/ancillary studies reviewed and summarized above. Nursing notes reviewed and agree them. Additional history obtained from his . The patient's history was concerning for generalized weakness, poor p.o. intake , and history of cancer. Differential diagnosis: Etiologies such as dehydration, infection, hypoglycemia, electrolyte abnormalities, cardiac sources, intracerebral event, toxicologic, neurologic, as well as others were entertained. Physical examination: As above ER treatment provided: IV Lock Normal saline hydration, 500 mL bolus and 125 mL an hour IV Dinner On reassessment the patient felt better. Diagnostics interpretation by me: ECG: Unremarkable as above The labs revealed neutropenia on CBC. Chemistry panel revealed acute renal failure with an elevated creatinine. He also had hypercalcemia. Imaging studies: X-ray and CT scan as above Consultation: A consultation was placed with the hospitalist. The case was discussed and diagnostics were reviewed. The patient was evaluated in the ER for further treatment. Medication Reconcilliation Current Medication List: was personally reviewed by ne Blood Pressure Screening Patient's blood pressure: Elevated blood pressure monitored by hospitalist Consults Time Called: 1748 Consulting Physician: Brayan Rowland [facility] hospitalist Returned Call: 1809 I spoke with Brayan Rowland [facility] hospitalist. We discussed the patient' s case. The patient will be evaluated by the [facility] for further management. Impression Primary Impression: Acute kidney failure Additional Impressions: Hypercalcemia Leukopenia Neutropenia Scribe Attestation The scribe's documentation has been prepared under my direction and personally reviewed by me in its entirety. I confirm that the note above accurately reflects all work, treatment, procedures, and medical decision making performed by me. Departure Information Dispostion Being Evaluated By Hospitalist Referrals ProTimmy M.D. (PCP) Patient Instructions My [facility] Problem Qualifiers
[2017-07-10] MEDS ORDERED: NTRGSL/4 UT (17:24)
--- NOTE | 2017-07-10 17:29 | DIAGNOSTIC IMAGING REPORT ---
CT HEAD WITHOUT CONTRAST (CT) CLINICAL HISTORY: Generalized weakness. Falls. History of carcinoma. COMPARISON STUDY: 05/02/2017 TECHNIQUE: Axial CT of the brain is performed from the vertex to the skull base. IV contrast was not administered for this examination. A dose lowering technique was utilized adhering to the principles of ALARA. CT DOSE: 638.56 mGycm FINDINGS: No intra or extra-axial mass lesions are visualized. There is no CT evidence of acute cortical infarction. There is no evidence of midline shift. There is no acute hemorrhage. No calvarial fractures are visualized. There are minimal white matter hypodensities likely on a small vessel basis. There is mild ventricular dilatation. This has slowly progressed when compared the prior studies. This is likely secondary to global volume loss. There is no evidence of acute sinusitis IMPRESSION: No acute intracranial findings Electronically signed by: Leroy Cheek M.D. 07/10/2017 5:27 PM Dictated Date/Time: 07/10/2017 5:23 PM
[2017-07-10 17:46] LABS: ALBUMIN 3.2 gm/dl (3.4-5.0); ALKALINE PHOSPHATASE 31 U/L (45-117); ALT/SGPT 16 U/L (12-78); AST/SGOT 15 U/L (15-37); BLOOD UREA NITROGEN 46 mg/dl (7-18); CARBON DIOXIDE 31 mmol/L (21-32); CREATININE 3.62 mg/dl (0.60-1.40); GLUCOSE 113 mg/dl (70-99); LIPASE 127 U/L (73-393); POTASSIUM 3.7 mmol/L (3.5-5.1); SODIUM 140 mmol/L (136-145); TOTAL PROTEIN 6.4 gm/dl (6.4-8.2)
[2017-07-10 17:47] LABS: CALCIUM 12.3 mg/dl (8.5-10.1)
[2017-07-10 18:16] LABS: HEMATOCRIT 31.2 % (42-52); HEMOGLOBIN 11.4 g/dL (14.0-18.0); MEAN CELL VOLUME 97.5 fL (80-100); MEAN CORPUSCULAR HEMOGLOBIN 35.6 pg (25-34); MEAN CORPUSCULAR HGB CONC 36.5 g/dl (32-36); MEAN PLATELET VOLUME 10.5 fL (7.4-10.4); PLATELET COUNT 115 K/uL (130-400); RED CELL DISTRIBUTION WIDTH CV 13.5 % (11.5-14.5); RED CELL DISTRIBUTION WIDTH SD 46.2 fL (36.4-46.3); WHITE BLOOD COUNT 0.56 K/uL (4.8-10.8)
[2017-07-10 18:20] LABS: LYMPH % 17.9 %; MONO % 60.7 %; MONO ABS # 0.34 K/uL (0.11-0.59); NEUT % 21.4 %; NEUT ABS # 0.12 K/uL (1.4-6.5)
[2017-07-10] MEDS ORDERED: OXYCODONE/ACETAMINOPHEN 5-325 TAB PO PRN (20:00)
[2017-07-10] MEDS ORDERED: PANTOprazole SOD 40 MG TAB PO PRN (20:00)
[2017-07-10] MEDS ORDERED: ARTIFICIAL TEARS OP SOLN OPR PRN (20:00)
[2017-07-10] MEDS ORDERED: NITROGLYCERIN 0.4 MG SL PER TAB CHARGE UT PRN (20:00)
[2017-07-10] MEDS ORDERED: ALUMINUM/MAGNESIUM/SIMETH (MAALOX MAX) 30 ML UDC PO PRN (20:00)
[2017-07-10] MEDS ORDERED: ZOLPIDEM TARTRATE 5 MG TAB PO PRN ×2 (20:00)
[2017-07-10] MEDS ORDERED: POLYETHYLENE (MIRALAX) 17 GM PACK PO PRN (20:00)
[2017-07-10] MEDS ORDERED: ONDANSETRON INJ 2 MG/ML 2 ML VIAL IV PRN (20:00)
--- NOTE | 2017-07-10 21:15 | History and Physical ---
History & Physical Date & Time of Service: Jul 10, 2017 at 21:02 Chief Complaint: Ambulating Problems, Lack Of Balance, Primary Care Physician: Timmy Ballesteros M.D. History of Present Illness Source: patient, spouse (1) 81 years old man with history of B-cell lymphoma, melanoma, CAD herpes, depression and cachexia. Patient is currently off chemotherapy, family likely are considering palliative care. In the last few months patient has been getting progressively weak, decreased appetite, decreased oral intake, status post fall about 2 months ago no fractures. Continues to have generalized severe weakness. Today patient had slurred speech and flaccid right arm. As per they were not able to understand what he saying. He was brought to the ED for further evaluation and all his symptoms resolved after IV fluid hydration he was found to have hypercalcemia and acute kidney injury. Patient will be admitted for further evaluation and management. Patient wishes to be DO NOT RESUSCITATE. His is open to the suggestion of consulting palliative care. Admits to some productive cough but denies any chest pain or shortness of breath more than usual. Complains of constipation Past Medical/Surgical History Medical Problems: (1) Acute renal failure (2) B-cell lymphoma (3) Closed head injury (4) Coronary Atherosclerosis Of [place] Coronary Vessel (5) Fall (6) Herpes zoster (7) Hypertension Nos (8) Hypotension (9) Orthostatic hypotension (10) Rupture of right Achilles tendon (11) Scalp laceration (12) Toe infection (13) Unsteady gait (14) Weakness Surgical Problems: (1) Knee Joint Replacement Status (2) Rotator cuff tear arthropathy Family History Patient reports no known family medical history. Social History Smoking Status: Never Smoker Drug Use: none Marital Status: Occupational Status: retired Immunizations History of Influenza Vaccine: Yes Influenza Vaccine Date: Dec 23, 2013 History of Tetanus Vaccine?: Yes Tetanus Immunization Date: Dec 17, 2011 History of Pneumococcal: Unknown Pneumococcal Date: Mar 14, 2010 History of Hepatitis B Vaccine: Unknown Allergies Coded Allergies: Latex (Verified Allergy, Unknown, RASH, 05/02/17) NO KNOWN DRUG ALLERGIES (Verified Allergy, Unknown, ., 05/02/17) Adhesives (Verified Adverse Reaction, Mild, Tape - rash, 05/02/17) Home Medications Scheduled Acyclovir (Acyclovir), 400 MG PO BID Bupropion HCl (Bupropion HCl Sr), 150 MG PO QAM Fentanyl (Fentanyl), 1 PATCH TOP CQ72HR Fluconazole (Diflucan), 200 MG PO QAM Metoprolol Succinate (Metoprolol Succinate ER), 12.5 MG PO QAM Multiple Vitamins W/ Minerals (Centrum Silver 50+Men), 1 TAB PO DAILY Silodosin (Rapaflo), 4 MG PO HS Scheduled PRN Nitroglycerin (Nitrostat), 0.4 MG UT UD PRN for Chest Pain Oxycodone/Acetaminophen 5MG/325MG (Oxycodone/Acetaminophen 5MG/325MG), 1 TAB PO Q4-6 HRS PRN for Pain Pantoprazole Sodium (Protonix), 40 MG PO QAM PRN for Indigestion Polyvinyl Alcohol-Povidone (Op (Refresh), 1 DROP OPR BID PRN for Dryness Review of Systems follow-up Review of system Constitutional: No fever / no chills / no sweats /generalized fatigue and weakness Eyes: no blurring of vision / no eye pain / no discharge / no redness ENT: no hearing loss / no epistaxis /no swallowing problems Respiratory: Admits to productive cough cough / no wheezing / no SOB / no hemoptysis Cardiovascular: no Chest pain / no lower extremity edema / no palpitation Abdomen: no pain / no nausea / no vomiting / no constipation Musculoskeletal: Generalized muscle ache Genitourinary: no dysuria / no incontinence / no urinary retention Neurologic: slurred speech and weakness in upper extremities as mentioned in HPI / no joint swelling Psychiatric: no depression symptoms / no anxiety / no insomnia Endocrine: no excessive thirst / no excessive urination Hematologic: no abnormal bleeding / no bruising / no LN swelling Skin: No rash / no pallor Physical Exam Vital Signs Date Time Temp Pulse Resp B/P (MAP) Pulse Ox O2 Delivery O2 Flow Rate FiO2 07/10/17 19:00 79 14 128/75 95 Room Air 07/10/17 18:42 77 13 135/79 98 Room Air 07/10/17 16:48 136/83 124/84 95/66 07/10/17 16:46 82 17 112/72 96 Room Air 07/10/17 16:22 /66 07/10/17 16:21 85 07/10/17 16:20 124/84 07/10/17 16:19 136/83 4/25/18 16:06 36.5 85 18 150/85 98 Room Air 07/10/17 15:53 150/85 General patient appears to be in mild distress with generalized weakness and fatigue HEENT: Atraumatic , normocephalic /no jaundice /positive for pallor and dry mucous membrane /normal external ear inspection Neck: Supple /no swelling /central trach Heart: S1/S2 normal/regular rate and rhythm/no gallop /no rub /no murmur Lungs: Clear to auscultation bilaterally/normal chest with expansion/no rhonchi/ no rales/no wheezing/no use of accessory muscles of respiration Abdomen: Soft/nontender/no guarding/no rebound/no organomegaly/no pulsatile mass Musculoskeletal: No swelling/no edema/no tenderness/normal range of motion, has generalized muscle atrophy Neuro exam: Awake alert oriented 3/cranial nerves II through XII appear to be intact/sensation intact/moves all extremities/no abnormal movements Psychiatric evaluation: No depressed mood/normal affect Skin: No rash on exposed skin area/no erythema Extremity: Normal pulse/no pitting edema/no clubbing or cyanosis Endocrine/lymphatic: No obvious lymphadenopathy /no lymphedema in mild distress, Diagnostics Laboratory Results Results Past 24 Hours Test 07/10/17 16:45 Range/Units White Blood Count 0.56 4.8-10.8 K/uL Red Blood Count 3.20 4.7-6.1 M/uL Hemoglobin 11.4 14.0-18.0 g/dL Hematocrit 31.2 42-52 % Mean Corpuscular Volume 97.5 80-100 fL Mean Corpuscular Hemoglobin 35.6 25-34 pg Mean Corpuscular Hemoglobin Concent 36.5 32-36 g/dl Platelet Count 115 130-400 K/uL Mean Platelet Volume 10.5 7.4-10.4 fL Neutrophils (%) (Auto) 21.4 % Lymphocytes (%) (Auto) 17.9 % Monocytes (%) (Auto) 60.7 % Eosinophils (%) (Auto) 0.0 % Basophils (%) (Auto) 0.0 % Neutrophils # (Auto) 0.12 1.4-6.5 K/uL Lymphocytes # (Auto) 0.10 1.2-3.4 K/uL Monocytes # (Auto) 0.34 0.11-0.59 K/uL Eosinophils # (Auto) 0.00 0-0.5 K/uL Basophils # (Auto) 0.00 0-0.2 K/uL RDW Standard Deviation 46.2 36.4-46.3 fL RDW Coefficient of Variation 13.5 11.5-14.5 % Immature Granulocyte % (Auto) 0.0 % Immature Granulocyte # (Auto) 0.00 0.00-0.02 K/uL Toxic Granulation 1+ Large Platelets 1+ Sodium Level 140 136-145 mmol/L Potassium Level 3.7 3.5-5.1 mmol/L Chloride Level 105 98-107 mmol/L Carbon Dioxide Level 31 21-32 mmol/L Anion Gap 4.0 3-11 mmol/L Blood Urea Nitrogen 46 7-18 mg/dl Creatinine 3.62 0.60-1.40 mg/dl Est Creatinine Clear Calc Drug Dose 13.4 ml/min Estimated GFR () 17.2 Estimated GFR (Non- 14.8 BUN/Creatinine Ratio 12.8 10-20 Random Glucose 113 70-99 mg/dl Calcium Level 12.3 8.5-10.1 mg/dl Total Bilirubin 0.4 0.2-1 mg/dl Direct Bilirubin 0.1 0-0.2 mg/dl Aspartate Amino Transf (AST/SGOT) 15 15-37 U/L Alanine Aminotransferase (ALT/SGPT) 16 12-78 U/L Alkaline Phosphatase 31 45-117 U/L Troponin I < 0.015 0-0.045 ng/ml Total Protein 6.4 6.4-8.2 gm/dl Albumin 3.2 3.4-5.0 gm/dl Lipase 127 73-393 U/L Diagnostic Radiology CT head showed no acute event Chest x-ray showed chronic scarring but no acute pneumonia Impression Assessment and Plan 81-year-old man with B-cell lymphoma, melanoma, CAD, generalized weakness presented to the ED with slurred speech and upper extremity weakness, likely related to metabolic encephalopathy rather than neurologic event. Assessment Slurred speech, upper extremity weakness, resolved after hydration, likely metabolic encephalopathy secondary to below Hypercalcemia Acute kidney injury secondary to below Decrease oral intake/dehydration/acyclovir History of recurrent dermatomal herpes B-cell lymphoma currently off chemotherapy Melanoma CAD Severe protein caloric malnutrition Deconditioning plan: Admit patient to telemetry Generous IV fluid hydration Monitor calcium level Ultrasound renal rule out hydronephrosis Obtain UA Nephrology consult Neutropenic precaution Combustion Analyst consult Heparin for DVT prophylaxis Continue home medications but adjust dosages to his current renal function, will decrease acyclovir to 200 mg once daily from 400 mg twice a day We will decrease fluconazole to 100 mg daily from 200 mg daily Hold rapaflo Continue supportive care Based on discussion with patient and his , patient is made DNR Consult palliative care name For that will not pursue any aggressive neurologic evaluation Resuscitation Status VTE Prophylaxis Will order VTE Prophylaxis: Yes
--- NOTE | 2017-07-10 21:25 | DIAGNOSTIC IMAGING REPORT ---
RENAL ULTRASOUND CLINICAL HISTORY: Acute kidney injury. COMPARISON STUDY: Abdominal ultrasound October 25, 2014 and PET/CT November 15, 2014. TECHNIQUE: Sonography of the kidneys and the urinary bladder was performed. FINDINGS: The right kidney measures 10.3 x 4.5 x 4.4 cm and the left kidney measures 9.1 x 5.1 x 4 cm. There is no hydronephrosis. Renal echogenicity, size and cortical thickness are normal. Note is made of a punctate echogenic focus projecting over the right ureterovesical junction. This is equivocal for a nonobstructing UVJ calculus. The prostate is mildly enlarged. Incidental note is made of several hepatic cysts. Neither ureteral jet was identified. IMPRESSION: 1. No hydronephrosis. 2. Punctate echogenic focus projecting over the right ureterovesical junction without hydronephrosis. Artifact is favored however a nonobstructing calculus could appear similar. Electronically signed by: Alfred Babcock M.D. 07/10/2017 9:24 PM Dictated Date/Time: 07/10/2017 9:21 PM
[2017-07-10] MEDS: SODIUM CHLORIDE 0.9% 1000ML 1,000 ML IV SCH (21:52)
[2017-07-10 22:00] VITALS: BP 160/81; PULSE 80; TEMP 37; O2SAT 95
[2017-07-10] MEDS: ACYCLOVIR 400 MG TAB PO SCH (22:23)
[2017-07-10 22:41] VITALS: BP 160/81; PULSE 80; TEMP 37; O2SAT 95; BMI 21.1
[2017-07-10 23:50] VITALS: BP 182/118; PULSE 84; TEMP 36.7; O2SAT 90
[2017-07-11 01:36] VITALS: BP 155/78; PULSE 72; TEMP 36.6; O2SAT 96
[2017-07-11 04:27] VITALS: BP 139/75; PULSE 79; TEMP 36.5; O2SAT 97
[2017-07-11 07:06] VITALS: BP 137/74; PULSE 77; TEMP 36.3; O2SAT 95
[2017-07-11] MEDS ORDERED: HEPARIN SOD 5000 UNIT/0.5 ML CARP SQ SCH (08:00)
[2017-07-11 08:01] LABS: ALBUMIN 2.6 gm/dl (3.4-5.0); CALCIUM 10.6 mg/dl (8.5-10.1); CREATININE 3.17 mg/dl (0.60-1.40); POTASSIUM 3.1 mmol/L (3.5-5.1)
[2017-07-11 08:06] LABS: TOTAL PROTEIN 5.1 gm/dl (6.4-8.2)
[2017-07-11] MEDS ORDERED: POTASSIUM CHLORIDE 10 MEQ TABCR PO STA (08:13)
[2017-07-11] MEDS: METOPROLOL SUCC 25MG EXT REL TAB PO SCH (09:11)
[2017-07-11] MEDS: CHECK FENTANYL PATCH PLACEMENT SCH ×3 (09:11→23:26)
[2017-07-11] MEDS: BuPROPion SR 150 MG TABCR PO SCH (09:11)
[2017-07-11] MEDS: FLUCONAZOLE 100 MG TAB PO SCH (09:11)
[2017-07-11] MEDS: ACYCLOVIR 400 MG TAB PO SCH ×2 (09:11→20:43)
[2017-07-11] MEDS: FENTANYL PATCH REMOVE & WASTE SCH (09:21)
[2017-07-11] MEDS: FENTANYL 12 MCG/HR TDSY TD SCH (09:21)
[2017-07-11] MEDS: SODIUM CHLORIDE 0.9% 1000ML 1,000 ML IV SCH ×2 (09:22→20:42)
--- NOTE | 2017-07-11 09:22 | Oncology Consultation ---
Oncology/Heme Consultation Date of Consultation: Jul 11, 2017. Attending Physician: Ramin Woodruff MD, PhD Reason for Consultation: Chronic neutropenia Hypercalcemia History of Present Illness Mr. Velez is an 81 year old man well known to my clinic for chronic neutropenia. 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 A bone marrow biopsy revealed no dysplasia but did demonstrate a small population of clonal B cells. He was treated with 4 weekly doses of Rituxan for presumed lymphoma. However, while the monoclonal B-cells did disappear from his marrow, his neutropenia did not resolve. A repeat marrow was limited by an inadequate sample but did not reveal any clonal cytogenetic changes suggestive of MDS. He refused a subsequent marrow and has been managed every since with periodic Neulasta for an ANC <250. He has done well with this for the last 2 years. He presented yesterday with fatigue and slurring speech. Over the past few weeks, he's noticed worsening fatigue and generalized weakness. His appetite has been poor and he's lost weight. He also reports a chronic cough productive of brown- yellow sputum. He denies any pain anywhere. His neurologic symptoms improved rapidly with IV hydration. He tells me he has been drinking 2 gallons of water a day recently. Past Medical/Surgical History Medical Problems: (1) Acute kidney failure Status: Acute (2) B-cell lymphoma Status: Acute (3) Closed head injury Status: Acute (4) Coronary Atherosclerosis Of [place] Coronary Vessel Status: Chronic (5) Fall Status: Acute (6) Hypercalcemia Status: Acute (7) Hypertension Nos Status: Chronic (8) Leukopenia Status: Acute (9) Orthostatic hypotension Status: Acute (10) Scalp laceration Status: Acute (11) Unsteady gait Status: Acute (12) Weakness Status: Acute Family History Patient reports no known family medical history. Social History Smoking Status: Former Smoker Drug Use: none Marital Status: Housing Status: lives with significant other Occupation Status: retired Allergies Coded Allergies: Latex (Verified Allergy, Unknown, RASH, 05/02/17) NO KNOWN DRUG ALLERGIES (Verified Allergy, Unknown, ., 05/02/17) Adhesives (Verified Adverse Reaction, Mild, Tape - rash, 05/02/17) Home Medications Scheduled Acyclovir (Acyclovir), 400 MG PO BID Bupropion HCl (Bupropion HCl Sr), 150 MG PO QAM Fentanyl (Fentanyl), 1 PATCH TOP [id number] Fluconazole (Diflucan), 200 MG PO QAM Metoprolol Succinate (Metoprolol Succinate ER), 12.5 MG PO QAM Multiple Vitamins W/ Minerals (Centrum Silver 50+Men), 1 TAB PO DAILY Silodosin (Rapaflo), 4 MG PO HS Scheduled PRN Nitroglycerin (Nitrostat), 0.4 MG UT UD PRN for Chest Pain Oxycodone/Acetaminophen 5MG/325MG (Oxycodone/Acetaminophen 5MG/325MG), 1 TAB PO Q4-6 HRS PRN for Pain Pantoprazole Sodium (Protonix), 40 MG PO QAM PRN for Indigestion Polyvinyl Alcohol-Povidone (Op (Refresh), 1 DROP OPR BID PRN for Dryness Current Inpatient Medications Current Inpatient Medications Medications (Trade) Dose Ordered Sig/Dylan Route Start Time Stop Time Status Last Admin Dose Admin Acyclovir (Zovirax Tab) 400 mg BID PO 07/10/17 21:00 07/20/17 20:59 07/10/17 22:23 400 MG Bupropion HCl (Wellbutrin-Sr Tab) 150 mg QAM PO 07/11/17 09:00 08/10/17 08:59 Fentanyl (Duragesic Patch) 12 mcg Q72H TD 07/11/17 10:00 07/25/17 09:59 Fluconazole (Diflucan Tab) 100 mg QAM PO 07/11/17 09:00 07/21/17 08:59 Metoprolol Succinate (Toprol Xl Tab) 12.5 mg QAM PO 07/11/17 09:00 08/10/17 08:59 Nitroglycerin (Nitrostat Tab) 0.4 mg UD PRN UT 07/10/17 20:00 08/09/17 19:59 Oxycodone/ Acetaminophen (Percocet 5-325mg Tab) 1 tab Q4H PRN PO 07/10/17 20:00 07/24/17 19:59 Pantoprazole Sodium (Protonix Tab) 40 mg QAM PRN PO 07/10/17 20:00 08/09/17 19:59 Artificial Tears (Artificial Tears) 1 drops BID PRN OPR 07/10/17 20:00 08/09/17 19:59 Heparin Sodium (Porcine) (Heparin Sq 5000 Unit/0.5ml) 5,000 unit Q12H SQ 07/11/17 08:00 08/10/17 07:59 Sodium Chloride 1,000 ml @ 75 mls/hr [id number] IV 07/10/17 19:46 08/09/17 19:45 07/10/17 21:52 75 MLS/HR Acetaminophen (Tylenol Tab) 650 mg Q4H PRN PO 07/10/17 20:00 08/09/17 19:59 Al Hydrox/Mg Hydrox/Simethicone (Maalox Max Susp) 15 ml Q4H PRN PO 07/10/17 20:00 08/09/17 19:59 Magnesium Hydroxide (Milk Of Magnesia Susp) 30 ml Q12H PRN PO 07/10/17 20:00 08/09/17 19:59 Zolpidem Tartrate (Ambien Tab) 5 mg HSZ PRN PO 07/10/17 20:00 08/09/17 19:59 Zolpidem Tartrate (Ambien Tab) 5 mg HSZ PRN PO 07/10/17 20:00 08/09/17 19:59 Ondansetron HCl (Zofran Inj) 4 mg Q6H PRN IV 07/10/17 20:00 08/09/17 19:59 Polyethylene (Miralax Powder Packet) 17 gm DAILY PRN PO 07/10/17 20:00 08/09/17 19:59 Miscellaneous (Fentanyl Patch Remove & Waste) 1 ea Q72H N/A 07/11/17 09:59 08/10/17 09:58 Miscellaneous Information (Check Fentanyl Patch Placement) 1 ea QS N/A 07/11/17 08:00 08/10/17 07:59 Review of Systems Constitutional: + weight loss, + weakness, + fatigue, No fever ENT: No unusual epistaxis Respiratory: + cough, + sputum, No shortness of breath, No hemoptysis Cardiovascular: No chest pain Abdomen: No pain, No nausea, No vomiting Musculoskeletal: No joint pain, No muscle pain Genitourinary - Male: No dysuria Neurologic: + weakness, + balance problems (now resolved) Physical Exam Date Time Temp Pulse Resp B/P (MAP) Pulse Ox O2 Delivery O2 Flow Rate FiO2 07/11/17 07:06 36.3 77 16 137/74 (95) 95 Room Air 07/11/17 04:27 36.5 79 18 139/75 (96) 97 Room Air 07/11/17 04:00 Room Air 07/11/17 01:36 36.6 72 18 155/78 (103) 96 Room Air 07/11/17 00:00 Room Air 07/10/17 22:41 37.0 80 18 160/81 95 Room Air 07/10/17 22:00 37.0 80 18 160/81 (107) 95 Room Air 07/10/17 19:00 79 14 128/75 95 Room Air 07/10/17 18:42 77 13 135/79 98 Room Air 07/10/17 16:48 136/83 124/84 95/66 07/10/17 16:46 82 17 112/72 96 Room Air 07/10/17 16:22 95/66 07/10/17 16:21 85 07/10/17 16:20 124/84 07/10/17 16:19 136/83 07/10/17 16:06 36.5 85 18 150/85 98 Room Air 07/10/17 15:53 150/85 General Appearance: + cachetic, + pertinent finding (chronically ill-appearing) Eyes: + pertinent finding (anisocoria - right pupil is dilated relative to the left) ENT: pharynx normal Respiratory/Chest: lungs clear Cardiovascular: regular rate, rhythm Abdomen/GI: non tender, soft Extremities/Musculoskelatal: no pedal edema Neurologic/Psych: alert, oriented x 3 Skin: no rash Laboratory Results Last 24 Hours Test 07/10/17 16:45 07/11/17 02:38 07/11/17 07:08 07/11/17 07:10 White Blood Count 0.56 K/uL 0.63 K/uL Red Blood Count 3.20 M/uL 2.47 M/uL Hemoglobin 11.4 g/dL 9.4 g/dL Hematocrit 31.2 % 24.5 % Mean Corpuscular Volume 97.5 fL 99.2 fL Mean Corpuscular Hemoglobin 35.6 pg 38.1 pg Mean Corpuscular Hemoglobin Concent 36.5 g/dl 38.4 g/dl Platelet Count 115 K/uL 94 K/uL Mean Platelet Volume 10.5 fL 10.0 fL Neutrophils (%) (Auto) 21.4 % Lymphocytes (%) (Auto) 17.9 % Monocytes (%) (Auto) 60.7 % Eosinophils (%) (Auto) 0.0 % Basophils (%) (Auto) 0.0 % Neutrophils # (Auto) 0.12 K/uL Lymphocytes # (Auto) 0.10 K/uL Monocytes # (Auto) 0.34 K/uL Eosinophils # (Auto) 0.00 K/uL Basophils # (Auto) 0.00 K/uL RDW Standard Deviation 46.2 fL 45.5 fL RDW Coefficient of Variation 13.5 % 14.1 % Immature Granulocyte % (Auto) 0.0 % Immature Granulocyte # (Auto) 0.00 K/uL Toxic Granulation 1+ Large Platelets 1+ Sodium Level 140 mmol/L 144 mmol/L Potassium Level 3.7 mmol/L 3.1 mmol/L Chloride Level 105 mmol/L 112 mmol/L Carbon Dioxide Level 31 mmol/L 27 mmol/L Anion Gap 4.0 mmol/L 5.0 mmol/L Blood Urea Nitrogen 46 mg/dl 44 mg/dl Creatinine 3.62 mg/dl 3.17 mg/dl Est Creatinine Clear Calc Drug Dose 13.4 ml/min 14.6 ml/min Estimated GFR () 17.2 20.2 Estimated GFR (Non- 14.8 17.4 BUN/Creatinine Ratio 12.8 14.0 Random Glucose 113 mg/dl 94 mg/dl Calcium Level 12.3 mg/dl 10.6 mg/dl Total Bilirubin 0.4 mg/dl 0.4 mg/dl Direct Bilirubin 0.1 mg/dl Aspartate Amino Transf (AST/SGOT) 15 U/L 13 U/L Alanine Aminotransferase (ALT/SGPT) 16 U/L 14 U/L Alkaline Phosphatase 31 U/L 24 U/L Troponin I < 0.015 ng/ml Total Protein 6.4 gm/dl 5.1 gm/dl Albumin 3.2 gm/dl 2.6 gm/dl Lipase 127 U/L Procalcitonin 0.29 ng/ml Urine Color YELLOW Urine Appearance CLEAR Urine pH 7.0 Urine Specific [place] 1.013 Urine Protein NEG Urine Glucose (UA) NEG Urine Ketones NEG Urine Occult Blood NEG Urine Nitrite NEG Urine Bilirubin NEG Urine Urobilinogen NEG Urine Leukocyte Esterase NEG Phosphorus Level 3.0 mg/dl Magnesium Level 2.2 mg/dl Globulin 2.5 gm/dl Albumin/Globulin Ratio 1.0 Lactic Acid Level 0.7 mmol/L Assessment & Plan Mr. Velez came in with confusion and neurologic symptoms and was found to have an FLORIN with hypercalcemia. He's since improved with IV hydration. The etiology of his hypercalcemia isn't clear. Given his cough and weight loss, I would certainly be concerned about a malignancy in his chest and would check a CT. I would do a serologic workup for hypercalcemia. He had a monoclonal B cell lymphocytosis in his marrow but never really had overt signs of lymphoma. Still , this would be on the differential as well. With regard to his neutropenia, it is very chronic and stable, though the etiology remains obscure. I suspect he has either very low-grade MDS with normal cytogenetics or one of the non-malignant marrow failure states, like unilineage dysplasia of uncertain significance. Regardless, we have been giving him Neulasta periodically for an ANC <250. His last was about 5 weeks ago, which is about the interval he has usually required. I would give him a dose of Neulasta today.
[2017-07-11 09:25] LABS: HEMATOCRIT 27.1 % (42-52); HEMOGLOBIN 9.5 g/dL (14.0-18.0)
[2017-07-11 09:26] LABS: MEAN CELL VOLUME 91.9 fL (80-100); MEAN CORPUSCULAR HEMOGLOBIN 32.2 pg (25-34); MEAN CORPUSCULAR HGB CONC 35.1 g/dl (32-36)
[2017-07-11 09:27] LABS: MEAN PLATELET VOLUME 9.7 fL (7.4-10.4); PLATELET COUNT 88 K/uL (130-400); RED CELL DISTRIBUTION WIDTH CV 13.3 % (11.5-14.5); RED CELL DISTRIBUTION WIDTH SD 44.3 fL (36.4-46.3)
[2017-07-11 09:28] LABS: WHITE BLOOD COUNT 0.71 K/uL (4.8-10.8)
[2017-07-11 09:58] LABS: EOS % 1.4 %; EOS ABS # 0.01 K/uL (0-0.5); LYMPH ABS # 0.14 K/uL (1.2-3.4); MONO % 68.6 %; MONO ABS # 0.48 K/uL (0.11-0.59); NEUT ABS # 0.07 K/uL (1.4-6.5)
[2017-07-11] MEDS: MAGNESIUM HYDROXIDE SUSP 30 ML UDC PO PRN (10:16)
[2017-07-11 10:49] VITALS: Ht 167.6 cm; Wt 57.4 kg
[2017-07-11 11:52] VITALS: BP 157/79; PULSE 77; TEMP 36.6; O2SAT 96
[2017-07-11] MEDS ORDERED: PEGFILGRASTIM 6 MG/0.6 ML SQ ONE (12:15)
--- NOTE | 2017-07-11 12:54 | Nephrology Consultation ---
Nephrology Consultation Date & Providers Date of Consultation: Jul 11, 2017. Primary Care Provider: Timmy Ballesteros M.D. Referring Provider: Reason for Consultation FLORIN, hypercalcemia History of Present Illness Mr. 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 Medical history is notable for CAD as well as a recent diagnosis of herpes zoster. Over the past several months, Rajat has been getting progressively weak with decreased appetite and poor oral intake. He has gait unsteadiness and multiple recent falls without fracture or significant injury. He has severe generalized severe weakness. He presented to the ED yesterday with slurred speech and flaccid right arm. Laboratory studies documented hypercalcemia and acute kidney injury. Symptoms and laboratory studies have started to improve with IVF. Upon my assessment, Rajat's primary concern was constipation. Past Medical/Surgical History Medical: -- B-cell lymphoma -- CAD -- Fall -- Herpes zoster -- Hypertension -- Orthostatic hypotension -- Rupture of right Achilles tendon -- Cachexia, failure to thrive -- Chronic neutropenia maintained on Neulasta Surgical: TKA, rotator cuff Allergies Coded Allergies: Latex (Verified Allergy, Unknown, RASH, 05/02/17) NO KNOWN DRUG ALLERGIES (Verified Allergy, Unknown, ., 05/02/17) Adhesives (Verified Adverse Reaction, Mild, Tape - rash, 05/02/17) Inpatient Medications Current Inpatient Medications Medications (Trade) Dose Ordered Sig/Dylan Route Start Time Stop Time Status Last Admin Dose Admin Acyclovir (Zovirax Tab) 400 mg BID PO 07/10/17 21:00 07/20/17 20:59 07/11/17 09:11 400 MG Bupropion HCl (Wellbutrin-Sr Tab) 150 mg QAM PO 07/11/17 09:00 08/10/17 08:59 07/11/17 09:11 150 MG Fentanyl (Duragesic Patch) 12 mcg Q72H TD 07/11/17 10:00 07/25/17 09:59 07/11/17 09:21 12 MCG Fluconazole (Diflucan Tab) 100 mg QAM PO 07/11/17 09:00 07/21/17 08:59 07/11/17 09:11 100 MG Metoprolol Succinate (Toprol Xl Tab) 12.5 mg QAM PO 07/11/17 09:00 08/10/17 08:59 07/11/17 09:11 12.5 MG Nitroglycerin (Nitrostat Tab) 0.4 mg UD PRN UT 07/10/17 20:00 08/09/17 19:59 Oxycodone/ Acetaminophen (Percocet 5-325mg Tab) 1 tab Q4H PRN PO 07/10/17 20:00 07/24/17 19:59 Pantoprazole Sodium (Protonix Tab) 40 mg QAM PRN PO 07/10/17 20:00 08/09/17 19:59 Artificial Tears (Artificial Tears) 1 drops BID PRN OPR 07/10/17 20:00 08/09/17 19:59 Heparin Sodium (Porcine) (Heparin Sq 5000 Unit/0.5ml) 5,000 unit Q12H SQ 07/11/17 08:00 08/10/17 07:59 Sodium Chloride 1,000 ml @ 75 mls/hr [id number] IV 07/10/17 19:46 08/09/17 19:45 07/11/17 09:22 75 MLS/HR Acetaminophen (Tylenol Tab) 650 mg Q4H PRN PO 07/10/17 20:00 08/09/17 19:59 Al Hydrox/Mg Hydrox/Simethicone (Maalox Max Susp) 15 ml Q4H PRN PO 07/10/17 20:00 08/09/17 19:59 Magnesium Hydroxide (Milk Of Magnesia Susp) 30 ml Q12H PRN PO 07/10/17 20:00 08/09/17 19:59 07/11/17 10:16 30 ML Zolpidem Tartrate (Ambien Tab) 5 mg HSZ PRN PO 07/10/17 20:00 08/09/17 19:59 Zolpidem Tartrate (Ambien Tab) 5 mg HSZ PRN PO 07/10/17 20:00 08/09/17 19:59 Ondansetron HCl (Zofran Inj) 4 mg Q6H PRN IV 07/10/17 20:00 08/09/17 19:59 Polyethylene (Miralax Powder Packet) 17 gm DAILY PRN PO 07/10/17 20:00 08/09/17 19:59 Miscellaneous (Fentanyl Patch Remove & Waste) 1 ea Q72H N/A 07/11/17 09:59 08/10/17 09:58 07/11/17 09:21 1 EA Miscellaneous Information (Check Fentanyl Patch Placement) 1 ea QS N/A 07/11/17 08:00 08/10/17 07:59 07/11/17 09:11 1 EA Family History Patient reports no known family medical history. Social History Smoking Status: Former Smoker Drug Use: none Marital Status: Occupation: retired Review of Systems A complete review of systems was performed. Pertinent positives are noted above. All other systems are negative. Physical Exam Date Time Temp Pulse Resp B/P (MAP) Pulse Ox O2 Delivery O2 Flow Rate FiO2 07/11/17 12:08 Room Air 07/11/17 11:52 36.6 77 20 157/79 (105) 96 07/11/17 08:50 Room Air 07/11/17 07:06 36.3 77 16 137/74 (95) 95 Room Air 07/11/17 04:27 36.5 79 18 139/75 (96) 97 Room Air 07/11/17 04:00 Room Air 07/11/17 01:36 36.6 72 18 155/78 (103) 96 Room Air 07/11/17 00:00 Room Air 07/10/17 22:41 37.0 80 18 160/81 95 Room Air 07/10/17 22:00 37.0 80 18 160/81 (107) 95 Room Air 07/10/17 19:00 79 14 128/75 95 Room Air 07/10/17 18:42 77 13 135/79 98 Room Air 07/10/17 16:48 136/83 124/84 95/66 07/10/17 16:46 82 17 112/72 96 Room Air 07/10/17 16:22 95/66 07/10/17 16:21 85 07/10/17 16:20 124/84 07/10/17 16:19 136/83 07/10/17 16:06 36.5 85 18 150/85 98 Room Air 07/10/17 15:53 150/85 General Appearance: + thin, + pertinent finding (cachetic, frail, elderly) Head: normocephalic, atraumatic Eyes: normal inspection, sclerae normal ENT: normal ENT inspection, pharynx normal, + pertinent finding (edentulous) Neck: supple, no JVD Respiratory/Chest: lungs clear, no respiratory distress, no accessory muscle use Cardiovascular: regular rate, rhythm, no gallop Abdomen/GI: non tender, soft Back: no CVA tenderness, no muscle spasm Extremities/Musculoskelatal: normal inspection, no pedal edema Neurologic/Psych: alert, normal mood/affect Laboratory Results Last 24 Hours Test 07/10/17 16:45 07/11/17 02:38 07/11/17 07:08 07/11/17 07:10 White Blood Count 0.56 K/uL 0.71 K/uL Red Blood Count 3.20 M/uL 2.95 M/uL Hemoglobin 11.4 g/dL 9.5 g/dL Hematocrit 31.2 % 27.1 % Mean Corpuscular Volume 97.5 fL 91.9 fL Mean Corpuscular Hemoglobin 35.6 pg 32.2 pg Mean Corpuscular Hemoglobin Concent 36.5 g/dl 35.1 g/dl Platelet Count 115 K/uL 88 K/uL Mean Platelet Volume 10.5 fL 9.7 fL Neutrophils (%) (Auto) 21.4 % 10.0 % Lymphocytes (%) (Auto) 17.9 % 20.0 % Monocytes (%) (Auto) 60.7 % 68.6 % Eosinophils (%) (Auto) 0.0 % 1.4 % Basophils (%) (Auto) 0.0 % 0.0 % Neutrophils # (Auto) 0.12 K/uL 0.07 K/uL Lymphocytes # (Auto) 0.10 K/uL 0.14 K/uL Monocytes # (Auto) 0.34 K/uL 0.48 K/uL Eosinophils # (Auto) 0.00 K/uL 0.01 K/uL Basophils # (Auto) 0.00 K/uL 0.00 K/uL RDW Standard Deviation 46.2 fL 44.3 fL RDW Coefficient of Variation 13.5 % 13.3 % Immature Granulocyte % (Auto) 0.0 % 0.0 % Immature Granulocyte # (Auto) 0.00 K/uL 0.00 K/uL Toxic Granulation 1+ 1+ Large Platelets 1+ 2+ Sodium Level 140 mmol/L 144 mmol/L Potassium Level 3.7 mmol/L 3.1 mmol/L Chloride Level 105 mmol/L 112 mmol/L Carbon Dioxide Level 31 mmol/L 27 mmol/L Anion Gap 4.0 mmol/L 5.0 mmol/L Blood Urea Nitrogen 46 mg/dl 44 mg/dl Creatinine 3.62 mg/dl 3.17 mg/dl Est Creatinine Clear Calc Drug Dose 13.4 ml/min 14.6 ml/min Estimated GFR () 17.2 20.2 Estimated GFR (Non- 14.8 17.4 BUN/Creatinine Ratio 12.8 14.0 Random Glucose 113 mg/dl 94 mg/dl Calcium Level 12.3 mg/dl 10.6 mg/dl Total Bilirubin 0.4 mg/dl 0.4 mg/dl Direct Bilirubin 0.1 mg/dl Aspartate Amino Transf (AST/SGOT) 15 U/L 13 U/L Alanine Aminotransferase (ALT/SGPT) 16 U/L 14 U/L Alkaline Phosphatase 31 U/L 24 U/L Troponin I < 0.015 ng/ml Total Protein 6.4 gm/dl 5.1 gm/dl Albumin 3.2 gm/dl 2.6 gm/dl Lipase 127 U/L Procalcitonin 0.29 ng/ml Urine Color YELLOW Urine Appearance CLEAR Urine pH 7.0 Urine Specific [place] 1.013 Urine Protein NEG Urine Glucose (UA) NEG Urine Ketones NEG Urine Occult Blood NEG Urine Nitrite NEG Urine Bilirubin NEG Urine Urobilinogen NEG Urine Leukocyte Esterase NEG Platelet Estimate DECREASED Phosphorus Level 3.0 mg/dl Magnesium Level 2.2 mg/dl Globulin 2.5 gm/dl Albumin/Globulin Ratio 1.0 Lactic Acid Level 0.7 mmol/L Test 07/11/17 11:22 25-Hydroxy Vitamin D Total 27.2 ng/ml Parathyroid Hormone (Intact) 11.7 pg/mL Impression (1) Acute renal failure (2) Hypercalcemia (3) Leukopenia (4) Neutropenia Mr. Velez is an 81-year-old male with a confusing hematologic history. He was treated for suspected B cell lymphoma with Rituxan. He has chronic myelodysplasia with neutropenia. He has recent failure to thrive. The patient reports poor appetite. He has lost significant weight. He is cachetic. He has pronounced generalized weakness. He presented with weakness, slurred speech and flaccid RUE. This improved. He had FLORIN and non PTH mediated hypercalcemia. He is non oliguric. Baseline creatinine is approximately 1 mg/dL. Metabolic profile is otherwise appropriate. The patient is non oliguric by report. He is tolerating IVF. He continues to appear hypovolemic. I will continue IVF with close monitoring. Rajat has declined to consider dialysis. This will not be considered part of the treatment plan. There is no current indication for [facility].
[2017-07-11] MEDS ORDERED: LIDOCAINE 4% CREAM 15 GM TUBE EXT PRN (13:30)
[2017-07-11] MEDS: GUAIFENESIN SUGAR FREE 100 MG/5 ML UDC PO SCH ×2 (14:36→20:42)
--- NOTE | 2017-07-11 14:37 | Hospitalist Progress Note ---
Hospitalist Progress Note Date of Service Jul 11, 2017. Subjective Pt evaluation today including: conversation w/ patient, conversation w/ family (daughter at bedside ), physical exam, lab review, review of studies, review of inpatient medication list Voiding: no voiding problems Patient resting in bed. Feeling well. Eating and drinking OK. +weakness. Feels much improved since admission. Significantly decreased appetite. Admits to declining function recently. Had a long discussion w/ daughter and patient- wants palliative consultation, no invasive measures. Patient denies any fever, chills, sweats, lightheadedness, dizziness, vision changes, CP, palpitations, edema, SOB, wheezing, cough, abdominal pain, nausea, vomiting, diarrhea, urinary symptoms, melena, numbness/tingling, muscle/joint pain, anxiety/depression, active bleeding, or new skin discoloration/changes. Medications Current Inpatient Medications Medications (Trade) Dose Ordered Sig/Dylan Route Start Time Stop Time Status Last Admin Dose Admin Acyclovir (Zovirax Tab) 400 mg BID PO 07/10/17 21:00 07/20/17 20:59 07/11/17 09:11 400 MG Bupropion HCl (Wellbutrin-Sr Tab) 150 mg QAM PO 07/11/17 09:00 08/10/17 08:59 07/11/17 09:11 150 MG Fentanyl (Duragesic Patch) 12 mcg Q72H TD 07/11/17 10:00 07/25/17 09:59 07/11/17 09:21 12 MCG Fluconazole (Diflucan Tab) 100 mg QAM PO 07/11/17 09:00 07/21/17 08:59 07/11/17 09:11 100 MG Metoprolol Succinate (Toprol Xl Tab) 12.5 mg QAM PO 07/11/17 09:00 08/10/17 08:59 07/11/17 09:11 12.5 MG Nitroglycerin (Nitrostat Tab) 0.4 mg UD PRN UT 07/10/17 20:00 08/09/17 19:59 Oxycodone/ Acetaminophen (Percocet 5-325mg Tab) 1 tab Q4H PRN PO 07/10/17 20:00 07/24/17 19:59 Pantoprazole Sodium (Protonix Tab) 40 mg QAM PRN PO 07/10/17 20:00 08/09/17 19:59 Artificial Tears (Artificial Tears) 1 drops BID PRN OPR 07/10/17 20:00 08/09/17 19:59 Sodium Chloride 1,000 ml @ 100 mls/hr Q10H IV 07/10/17 19:46 08/09/17 19:45 07/11/17 09:22 75 MLS/HR Acetaminophen (Tylenol Tab) 650 mg Q4H PRN PO 07/10/17 20:00 08/09/17 19:59 Al Hydrox/Mg Hydrox/Simethicone (Maalox Max Susp) 15 ml Q4H PRN PO 07/10/17 20:00 08/09/17 19:59 Magnesium Hydroxide (Milk Of Magnesia Susp) 30 ml Q12H PRN PO 07/10/17 20:00 08/09/17 19:59 07/11/17 10:16 30 ML Zolpidem Tartrate (Ambien Tab) 5 mg HSZ PRN PO 07/10/17 20:00 08/09/17 19:59 Zolpidem Tartrate (Ambien Tab) 5 mg HSZ PRN PO 07/10/17 20:00 08/09/17 19:59 Ondansetron HCl (Zofran Inj) 4 mg Q6H PRN IV 07/10/17 20:00 08/09/17 19:59 Polyethylene (Miralax Powder Packet) 17 gm DAILY PRN PO 07/10/17 20:00 08/09/17 19:59 Miscellaneous (Fentanyl Patch Remove & Waste) 1 ea Q72H N/A 07/11/17 09:59 08/10/17 09:58 07/11/17 09:21 1 EA Miscellaneous Information (Check Fentanyl Patch Placement) 1 ea QS N/A 07/11/17 08:00 08/10/17 07:59 07/11/17 09:11 1 EA Guaifenesin (Robitussin Sugar Free Syrup) 100 mg Q6H PO 07/11/17 14:00 08/10/17 13:29 Lidocaine (AneCream 4%) 1 appln Q12 PRN EXT 07/11/17 13:30 08/10/17 13:29 Objective Vital Signs Date Time Temp Pulse Resp B/P (MAP) Pulse Ox O2 Delivery O2 Flow Rate FiO2 07/11/17 12:08 Room Air 07/11/17 11:52 36.6 77 20 157/79 (105) 96 07/11/17 08:50 Room Air 07/11/17 07:06 36.3 77 16 137/74 (95) 95 Room Air 07/11/17 04:27 36.5 79 18 139/75 (96) 97 Room Air 07/11/17 04:00 Room Air 07/11/17 01:36 36.6 72 18 155/78 (103) 96 Room Air 07/11/17 00:00 Room Air 07/10/17 22:41 37.0 80 18 160/81 95 Room Air 07/10/17 22:00 37.0 80 18 160/81 (107) 95 Room Air 07/10/17 19:00 79 14 128/75 95 Room Air 07/10/17 18:42 77 13 135/79 98 Room Air 07/10/17 16:48 136/83 124/84 95/66 07/10/17 16:46 82 17 112/72 96 Room Air 07/10/17 16:22 95/66 07/10/17 16:21 85 07/10/17 16:20 124/84 07/10/17 16:19 136/83 07/10/17 16:06 36.5 85 18 150/85 98 Room Air 07/10/17 15:53 150/85 Physical Exam General Appearance: no apparent distress, + cachetic, + thin Eyes: normal inspection, PERRL ENT: hearing grossly normal Neck: supple Respiratory/Chest: lungs clear, no respiratory distress, no accessory muscle use Cardiovascular: regular rate, rhythm Abdomen: normal bowel sounds, non tender, soft Extremities: no pedal edema, no calf tenderness Neurologic/Psychiatric: alert, normal mood/affect, oriented x 3 Skin: normal color, warm/dry, no rash Laboratory Results Last 24 Hours Test 07/10/17 16:45 07/11/17 02:38 07/11/17 07:08 07/11/17 07:10 White Blood Count 0.56 K/uL 0.71 K/uL Red Blood Count 3.20 M/uL 2.95 M/uL Hemoglobin 11.4 g/dL 9.5 g/dL Hematocrit 31.2 % 27.1 % Mean Corpuscular Volume 97.5 fL 91.9 fL Mean Corpuscular Hemoglobin 35.6 pg 32.2 pg Mean Corpuscular Hemoglobin Concent 36.5 g/dl 35.1 g/dl Platelet Count 115 K/uL 88 K/uL Mean Platelet Volume 10.5 fL 9.7 fL Neutrophils (%) (Auto) 21.4 % 10.0 % Lymphocytes (%) (Auto) 17.9 % 20.0 % Monocytes (%) (Auto) 60.7 % 68.6 % Eosinophils (%) (Auto) 0.0 % 1.4 % Basophils (%) (Auto) 0.0 % 0.0 % Neutrophils # (Auto) 0.12 K/uL 0.07 K/uL Lymphocytes # (Auto) 0.10 K/uL 0.14 K/uL Monocytes # (Auto) 0.34 K/uL 0.48 K/uL Eosinophils # (Auto) 0.00 K/uL 0.01 K/uL Basophils # (Auto) 0.00 K/uL 0.00 K/uL RDW Standard Deviation 46.2 fL 44.3 fL RDW Coefficient of Variation 13.5 % 13.3 % Immature Granulocyte % (Auto) 0.0 % 0.0 % Immature Granulocyte # (Auto) 0.00 K/uL 0.00 K/uL Toxic Granulation 1+ 1+ Large Platelets 1+ 2+ Sodium Level 140 mmol/L 144 mmol/L Potassium Level 3.7 mmol/L 3.1 mmol/L Chloride Level 105 mmol/L 112 mmol/L Carbon Dioxide Level 31 mmol/L 27 mmol/L Anion Gap 4.0 mmol/L 5.0 mmol/L Blood Urea Nitrogen 46 mg/dl 44 mg/dl Creatinine 3.62 mg/dl 3.17 mg/dl Est Creatinine Clear Calc Drug Dose 13.4 ml/min 14.6 ml/min Estimated GFR () 17.2 20.2 Estimated GFR (Non- 14.8 17.4 BUN/Creatinine Ratio 12.8 14.0 Random Glucose 113 mg/dl 94 mg/dl Calcium Level 12.3 mg/dl 10.6 mg/dl Total Bilirubin 0.4 mg/dl 0.4 mg/dl Direct Bilirubin 0.1 mg/dl Aspartate Amino Transf (AST/SGOT) 15 U/L 13 U/L Alanine Aminotransferase (ALT/SGPT) 16 U/L 14 U/L Alkaline Phosphatase 31 U/L 24 U/L Troponin I < 0.015 ng/ml Total Protein 6.4 gm/dl 5.1 gm/dl Albumin 3.2 gm/dl 2.6 gm/dl Lipase 127 U/L Procalcitonin 0.29 ng/ml Urine Color YELLOW Urine Appearance CLEAR Urine pH 7.0 Urine Specific [place] 1.013 Urine Protein NEG Urine Glucose (UA) NEG Urine Ketones NEG Urine Occult Blood NEG Urine Nitrite NEG Urine Bilirubin NEG Urine Urobilinogen NEG Urine Leukocyte Esterase NEG Platelet Estimate DECREASED Phosphorus Level 3.0 mg/dl Magnesium Level 2.2 mg/dl Globulin 2.5 gm/dl Albumin/Globulin Ratio 1.0 Lactic Acid Level 0.7 mmol/L Test 07/11/17 11:22 25-Hydroxy Vitamin D Total 27.2 ng/ml Parathyroid Hormone (Intact) 11.7 pg/mL Assessment and Plan 81-year-old man with B-cell lymphoma, melanoma, CAD, generalized weakness presented to the ED with slurred speech and upper extremity weakness, likely related to metabolic encephalopathy rather than neurologic event. B cell lymphoma w/ Rituxan, melanoma, chronic myelodysplasia w/ neutropenia- follows w/ Dr. Trejo: - Neutropenic precautions - Has been off chemotherapy for sometime due to neutropenia- Neulasta SQ injection today per oncology recommendations - Palliative care consulted- wants to go home w/ hospice, POLST to be completed tomorrow Dehydration, severe protein-calorie malnutrition, depression: Will start low dose Remeron 7.5 mg HS, continue Wellbutrin Metabolic encephalopathy likely secondary to dehydration- RESOLVED: - Treating w/ IVF @ 100 ml/hr - CXR w/out acute process, UA negative - Head CT w/out acute findings FLORIN due to dehydration- baseline set designer 1.0- IMPROVING: - Medical Office Asst 3.6 --> 3.1 - IVF as above - Renal US w/out acute findings - Avoid nephrotoxic agents and renally dose medications as appropriate - Nephrology consulted, appreciate recommendations Hypercalcemia- IMPROVING: low PTH and vitamin D- pursuing hospice, no further workup/treatment CAD- STABLE: Continue Metoprolol GI prophylaxis: Protonix PRN DVT prophylaxis: Hold chemical anticoagulation due to pancytopenia Code status: LEVEL V, DNR Dispo: Would like to peruse home w/ hospice care- CM following
[2017-07-11 15:27] VITALS: BP 141/75; PULSE 81; TEMP 36.6; O2SAT 94
--- NOTE | 2017-07-11 15:53 | Palliative Care Consultation ---
Consultation Date of Consultation: Jul 11, 2017. Requesting Physician: Gisele Ordonez Attending Physician: Dr. Madrigal Reason for Consultation: Goals of Care History of Present Illness This demarcus patient is an 81-year-old male who has a PMH of B-cell lymphoma ( currently receiving Neulasta injections Q 5 weeks), CAD, cachexia, melanoma, CAD - presented to the ED with generalized weakness and slurred speech. This patient is followed by Dr. Trejo and his current chemotherapy regimen has been on hold due to neutropenia. I did have a lengthy discussion with the patient, his , daughter Shalonda, and grand-daughter regarding GOALS OF CARE. The patient is quiet neurologically intact and was able to participate quite well in this discussion. It was clear that the patient wanted to remain DNR/DNI. In further discussion regarding GOALS OF CARE, the patient was clear in stating that 'he did not want to in the hospital' and would ' like to get home to watch my birds on the bird feeder'. There was a conversation about continuing chemotherapy, and him and his family stated that they know he is declining overall and are not interested in continuing to pursue chemotherapy - would defer to Dr. Trejo for further discussion. Goals for returning home were stated strongly from the patient and family. We discussed the amount of care that he may need and family expressed being able to support the arrangement of 24 hour care, if needed, down the line. I did talk with Diann from case management and options of Hospice agencies were provided to the family to pick from. I do plan on filling out a POLST form with the patient and family tomorrow (Wednesday 07/12), but they need some time to digest the conversation from today. Social History Smoking Status: Former Smoker History of Alcohol Use: No Drug Use: none Marital Status: Occupation Status: retired Review of Systems Patient denies CP, SOB, dizziness, BONILLA, visual changes, N/V/D, edema, pain. Allergies Coded Allergies: Latex (Verified Allergy, Unknown, RASH, 05/02/17) NO KNOWN DRUG ALLERGIES (Verified Allergy, Unknown, ., 05/02/17) Adhesives (Verified Adverse Reaction, Mild, Tape - rash, 05/02/17) Medications Current Inpatient Medications Medications (Trade) Dose Ordered Sig/Dylan Route Start Time Stop Time Status Last Admin Dose Admin Acyclovir (Zovirax Tab) 400 mg BID PO 07/10/17 21:00 07/20/17 20:59 07/11/17 09:11 400 MG Bupropion HCl (Wellbutrin-Sr Tab) 150 mg QAM PO 07/11/17 09:00 08/10/17 08:59 07/11/17 09:11 150 MG Fentanyl (Duragesic Patch) 12 mcg Q72H TD 07/11/17 10:00 07/25/17 09:59 07/11/17 09:21 12 MCG Fluconazole (Diflucan Tab) 100 mg QAM PO 07/11/17 09:00 07/21/17 08:59 07/11/17 09:11 100 MG Metoprolol Succinate (Toprol Xl Tab) 12.5 mg QAM PO 07/11/17 09:00 08/10/17 08:59 07/11/17 09:11 12.5 MG Nitroglycerin (Nitrostat Tab) 0.4 mg UD PRN UT 07/10/17 20:00 08/09/17 19:59 Oxycodone/ Acetaminophen (Percocet 5-325mg Tab) 1 tab Q4H PRN PO 07/10/17 20:00 07/24/17 19:59 Pantoprazole Sodium (Protonix Tab) 40 mg QAM PRN PO 07/10/17 20:00 08/09/17 19:59 Artificial Tears (Artificial Tears) 1 drops BID PRN OPR 07/10/17 20:00 08/09/17 19:59 Sodium Chloride 1,000 ml @ 100 mls/hr Q10H IV 07/10/17 19:46 08/09/17 19:45 07/11/17 09:22 75 MLS/HR Acetaminophen (Tylenol Tab) 650 mg Q4H PRN PO 07/10/17 20:00 08/09/17 19:59 Al Hydrox/Mg Hydrox/Simethicone (Maalox Max Susp) 15 ml Q4H PRN PO 07/10/17 20:00 08/09/17 19:59 Magnesium Hydroxide (Milk Of Magnesia Susp) 30 ml Q12H PRN PO 07/10/17 20:00 08/09/17 19:59 07/11/17 10:16 30 ML Zolpidem Tartrate (Ambien Tab) 5 mg HSZ PRN PO 07/10/17 20:00 08/09/17 19:59 Zolpidem Tartrate (Ambien Tab) 5 mg HSZ PRN PO 07/10/17 20:00 08/09/17 19:59 Ondansetron HCl (Zofran Inj) 4 mg Q6H PRN IV 07/10/17 20:00 08/09/17 19:59 Polyethylene (Miralax Powder Packet) 17 gm DAILY PRN PO 07/10/17 20:00 08/09/17 19:59 Miscellaneous (Fentanyl Patch Remove & Waste) 1 ea Q72H N/A 07/11/17 09:59 08/10/17 09:58 07/11/17 09:21 1 EA Miscellaneous Information (Check Fentanyl Patch Placement) 1 ea QS N/A 07/11/17 08:00 08/10/17 07:59 07/11/17 09:11 1 EA Guaifenesin (Robitussin Sugar Free Syrup) 100 mg Q6H PO 07/11/17 14:00 08/10/17 13:29 07/11/17 14:36 100 MG Lidocaine (AneCream 4%) 1 appln Q12 PRN EXT 07/11/17 13:30 08/10/17 13:29 Mirtazapine (Remeron Tab) 7.5 mg HS PO 07/11/17 21:00 08/10/17 20:59 Physical Exam Date Time Temp Pulse Resp B/P (MAP) Pulse Ox O2 Delivery O2 Flow Rate FiO2 07/11/17 15:27 36.6 81 16 141/75 (97) 94 Room Air 07/11/17 12:08 Room Air 07/11/17 11:52 36.6 77 20 157/79 (105) 96 07/11/17 08:50 Room Air 07/11/17 07:06 36.3 77 16 137/74 (95) 95 Room Air 07/11/17 04:27 36.5 79 18 139/75 (96) 97 Room Air 07/11/17 04:00 Room Air 07/11/17 01:36 36.6 72 18 155/78 (103) 96 Room Air 07/11/17 00:00 Room Air 07/10/17 22:41 37.0 80 18 160/81 95 Room Air 07/10/17 22:00 37.0 80 18 160/81 (107) 95 Room Air 07/10/17 19:00 79 14 128/75 95 Room Air 07/10/17 18:42 77 13 135/79 98 Room Air 07/10/17 16:48 136/83 124/84 95/66 07/10/17 16:46 82 17 112/72 96 Room Air 07/10/17 16:22 95/66 07/10/17 16:21 85 07/10/17 16:20 124/84 07/10/17 16:19 136/83 07/10/17 16:06 36.5 85 18 150/85 98 Room Air 07/10/17 15:53 150/85 General Appearance: no apparent distress (pt cachectic ), + cachetic Neck: no JVD Respiratory: chest non-tender, lungs clear, no respiratory distress, no accessory muscle use Cardiovascular: regular rate, rhythm, no edema, no gallop, no JVD, no murmur Abdomen: normal bowel sounds, non tender, soft Musculoskeletal: normal strength (5/5 throughout) Neurologic/Psychiatric: oriented x 3 Skin: warm/dry Laboratory Results Last 24 Hours Test 07/10/17 16:45 07/11/17 02:38 07/11/17 07:08 07/11/17 07:10 White Blood Count 0.56 K/uL 0.71 K/uL Red Blood Count 3.20 M/uL 2.95 M/uL Hemoglobin 11.4 g/dL 9.5 g/dL Hematocrit 31.2 % 27.1 % Mean Corpuscular Volume 97.5 fL 91.9 fL Mean Corpuscular Hemoglobin 35.6 pg 32.2 pg Mean Corpuscular Hemoglobin Concent 36.5 g/dl 35.1 g/dl Platelet Count 115 K/uL 88 K/uL Mean Platelet Volume 10.5 fL 9.7 fL Neutrophils (%) (Auto) 21.4 % 10.0 % Lymphocytes (%) (Auto) 17.9 % 20.0 % Monocytes (%) (Auto) 60.7 % 68.6 % Eosinophils (%) (Auto) 0.0 % 1.4 % Basophils (%) (Auto) 0.0 % 0.0 % Neutrophils # (Auto) 0.12 K/uL 0.07 K/uL Lymphocytes # (Auto) 0.10 K/uL 0.14 K/uL Monocytes # (Auto) 0.34 K/uL 0.48 K/uL Eosinophils # (Auto) 0.00 K/uL 0.01 K/uL Basophils # (Auto) 0.00 K/uL 0.00 K/uL RDW Standard Deviation 46.2 fL 44.3 fL RDW Coefficient of Variation 13.5 % 13.3 % Immature Granulocyte % (Auto) 0.0 % 0.0 % Immature Granulocyte # (Auto) 0.00 K/uL 0.00 K/uL Toxic Granulation 1+ 1+ Large Platelets 1+ 2+ Sodium Level 140 mmol/L 144 mmol/L Potassium Level 3.7 mmol/L 3.1 mmol/L Chloride Level 105 mmol/L 112 mmol/L Carbon Dioxide Level 31 mmol/L 27 mmol/L Anion Gap 4.0 mmol/L 5.0 mmol/L Blood Urea Nitrogen 46 mg/dl 44 mg/dl Creatinine 3.62 mg/dl 3.17 mg/dl Est Creatinine Clear Calc Drug Dose 13.4 ml/min 14.6 ml/min Estimated GFR () 17.2 20.2 Estimated GFR (Non- 14.8 17.4 BUN/Creatinine Ratio 12.8 14.0 Random Glucose 113 mg/dl 94 mg/dl Calcium Level 12.3 mg/dl 10.6 mg/dl Total Bilirubin 0.4 mg/dl 0.4 mg/dl Direct Bilirubin 0.1 mg/dl Aspartate Amino Transf (AST/SGOT) 15 U/L 13 U/L Alanine Aminotransferase (ALT/SGPT) 16 U/L 14 U/L Alkaline Phosphatase 31 U/L 24 U/L Troponin I < 0.015 ng/ml Total Protein 6.4 gm/dl 5.1 gm/dl Albumin 3.2 gm/dl 2.6 gm/dl Lipase 127 U/L Procalcitonin 0.29 ng/ml Urine Color YELLOW Urine Appearance CLEAR Urine pH 7.0 Urine Specific [place] 1.013 Urine Protein NEG Urine Glucose (UA) NEG Urine Ketones NEG Urine Occult Blood NEG Urine Nitrite NEG Urine Bilirubin NEG Urine Urobilinogen NEG Urine Leukocyte Esterase NEG Platelet Estimate DECREASED Phosphorus Level 3.0 mg/dl Magnesium Level 2.2 mg/dl Globulin 2.5 gm/dl Albumin/Globulin Ratio 1.0 Lactic Acid Level 0.7 mmol/L Test 07/11/17 11:22 25-Hydroxy Vitamin D Total 27.2 ng/ml Parathyroid Hormone (Intact) 11.7 pg/mL Assessment & Plan Palliative Performance Scale: 50 % Palliative Care Encounter Goals of Care B-Cell Lymphoma Cachexia Palliative Care Recommendations: - Patient to remain DNR/DNI -Goals for returning home were stated strongly from the patient and family. We discussed the amount of care that he may need and family expressed being able to support the arrangement of 24 hour care, if needed, down the line. -Case management provided Hospice agency list for family to explore - I do plan on filling out a POLST form with the patient and family tomorrow (Wednesday 07/12), but they need some time to digest the conversation from today Thank you kindly for this consult and allowing us to be involved in this patients care. Counseling and Coordination Total time spent 70 minutes with > 50% of that time assessing the patient and discussing GOALS OF CARE with patient, , daughter and grand-daughter at the bedside.
[2017-07-11 20:20] VITALS: BP 144/76; PULSE 87; TEMP 36.5; O2SAT 97
[2017-07-11] MEDS: MIRTAZAPINE TAB 15 MG TAB PO SCH (20:43)
[2017-07-12 00:06] VITALS: BP 155/82; PULSE 89; TEMP 37; O2SAT 91
[2017-07-12] MEDS: GUAIFENESIN SUGAR FREE 100 MG/5 ML UDC PO SCH ×4 (01:51→19:55)
[2017-07-12 04:38] VITALS: BP 152/73; PULSE 87; TEMP 36.8; O2SAT 94
[2017-07-12] MEDS: SODIUM CHLORIDE 0.9% 1000ML 1,000 ML IV SCH ×2 (05:56→15:18)
[2017-07-12 06:36] LABS: ALBUMIN 2.4 gm/dl (3.4-5.0); CALCIUM 10.1 mg/dl (8.5-10.1); CREATININE 2.77 mg/dl (0.60-1.40); POTASSIUM 3.1 mmol/L (3.5-5.1)
[2017-07-12] MEDS: BuPROPion SR 150 MG TABCR PO SCH (07:23)
[2017-07-12] MEDS: FLUCONAZOLE 100 MG TAB PO SCH (07:23)
[2017-07-12] MEDS: METOPROLOL SUCC 25MG EXT REL TAB PO SCH (07:23)
[2017-07-12] MEDS: ACYCLOVIR 400 MG TAB PO SCH ×2 (07:23→19:55)
[2017-07-12] MEDS: CHECK FENTANYL PATCH PLACEMENT SCH ×2 (07:23→15:58)
[2017-07-12 07:35] VITALS: BP 150/76; PULSE 90; TEMP 36.8; O2SAT 91
[2017-07-12] MEDS ORDERED: POTASSIUM CHLR 20 MEQ / WTR 20 MEQ in PREMIXED WATER 100 ML IV STA (08:14)
[2017-07-12] MEDS ORDERED: POTASSIUM PHOS 3 MMOL/1 ML INFUSION IV STA (08:14)
[2017-07-12] MEDS ORDERED: POTASSIUM PHOSPHATE INJ 15 MMOL in SODIUM CHLORIDE 0.9% 250ML 250 ML IV ONE (08:30)
[2017-07-12] MEDS: POTASSIUM CHLR 10 MEQ / WTR 100 ML IV SCH ×2 (08:57→09:50)
[2017-07-12] MEDS: ACETAMINOPHEN 325 MG TAB PO PRN (10:08)
--- NOTE | 2017-07-12 10:50 | Nephrology Progress Note ---
Nephrology Progress Note Date of Service Jul 12, 2017. Chief Complaint FLORIN, hypercalcemia Subjective No acute events overnight. Rajat was resting comfortably in bed. No fevers or chills. Appetite reported as good. Some weakness persists but overall patient has no complaints. Patient was discussed with Dr. Chappell this morning. Review of Systems A complete review of systems was performed. Pertinent positives are noted above. All other systems are negative. Vital Signs Last 8 Hrs Date Time Temp Pulse Resp B/P (MAP) Pulse Ox O2 Delivery O2 Flow Rate FiO2 07/12/17 08:00 Room Air 07/12/17 07:35 36.8 90 16 150/76 (100) 91 Room Air 07/12/17 04:38 36.8 87 18 152/73 (99) 94 Room Air 07/12/17 04:00 Room Air Last Recorded Weight Weight (Kilograms): 58.100 Physical Exam General Appearance: no apparent distress, + thin, + pertinent finding ( chronically ill appearing) Head: normocephalic, atraumatic Eyes: normal inspection, sclerae normal ENT: normal ENT inspection, pharynx normal, + pertinent finding (oral mucosa dry) Neck: supple Respiratory/Chest: lungs clear, no respiratory distress, no accessory muscle use Cardiovascular: regular rate, rhythm, no gallop Abdomen/GI: non tender, soft Extremities/Musculoskelatal: normal inspection, no pedal edema Neurologic/Psych: alert, normal mood/affect Family History Patient reports no known family medical history. Social History Smoking Status: Former smoker Drug Use: none Marital Status: Occupation: retired Laboratory Results Past 24 Hours 07/12/17 05:41 Test 07/11/17 11:22 07/12/17 05:41 25-Hydroxy Vitamin D Total 27.2 ng/ml (30-100) Parathyroid Hormone (Intact) 11.7 pg/mL (18.4-80.1) Anion Gap 4.0 mmol/L (3-11) Est Creatinine Clear Calc Drug Dose 16.7 ml/min Estimated GFR () 23.8 Estimated GFR (Non- 20.5 BUN/Creatinine Ratio 13.9 (10-20) Calcium Level 10.1 mg/dl (8.5-10.1) Phosphorus Level 2.0 mg/dl (2.5-4.9) Magnesium Level 2.2 mg/dl (1.8-2.4) Albumin 2.4 gm/dl (3.4-5.0) Allergies Coded Allergies: Latex (Verified Allergy, Unknown, RASH, 05/02/17) NO KNOWN DRUG ALLERGIES (Verified Allergy, Unknown, ., 05/02/17) Adhesives (Verified Adverse Reaction, Mild, Tape - rash, 05/02/17) Medications Current Inpatient Medications Medications (Trade) Dose Ordered Sig/Dylan Route Start Time Stop Time Status Last Admin Dose Admin Acyclovir (Zovirax Tab) 400 mg BID PO 07/10/17 21:00 07/20/17 20:59 07/12/17 07:23 400 MG Bupropion HCl (Wellbutrin-Sr Tab) 150 mg QAM PO 07/11/17 09:00 08/10/17 08:59 07/12/17 07:23 150 MG Fentanyl (Duragesic Patch) 12 mcg Q72H TD 07/11/17 10:00 07/25/17 09:59 07/11/17 09:21 12 MCG Fluconazole (Diflucan Tab) 100 mg QAM PO 07/11/17 09:00 07/21/17 08:59 07/12/17 07:23 100 MG Metoprolol Succinate (Toprol Xl Tab) 12.5 mg QAM PO 07/11/17 09:00 08/10/17 08:59 07/12/17 07:23 12.5 MG Nitroglycerin (Nitrostat Tab) 0.4 mg UD PRN UT 07/10/17 20:00 08/09/17 19:59 Oxycodone/ Acetaminophen (Percocet 5-325mg Tab) 1 tab Q4H PRN PO 07/10/17 20:00 07/24/17 19:59 Pantoprazole Sodium (Protonix Tab) 40 mg QAM PRN PO 07/10/17 20:00 08/09/17 19:59 Artificial Tears (Artificial Tears) 1 drops BID PRN OPR 07/10/17 20:00 08/09/17 19:59 Sodium Chloride 1,000 ml @ 100 mls/hr Q10H IV 07/10/17 19:46 08/09/17 19:45 07/12/17 05:56 100 MLS/HR Acetaminophen (Tylenol Tab) 650 mg Q4H PRN PO 07/10/17 20:00 08/09/17 19:59 07/12/17 10:08 650 MG Al Hydrox/Mg Hydrox/Simethicone (Maalox Max Susp) 15 ml Q4H PRN PO 07/10/17 20:00 08/09/17 19:59 Magnesium Hydroxide (Milk Of Magnesia Susp) 30 ml Q12H PRN PO 07/10/17 20:00 08/09/17 19:59 07/11/17 10:16 30 ML Zolpidem Tartrate (Ambien Tab) 5 mg HSZ PRN PO 07/10/17 20:00 08/09/17 19:59 Zolpidem Tartrate (Ambien Tab) 5 mg HSZ PRN PO 07/10/17 20:00 08/09/17 19:59 Ondansetron HCl (Zofran Inj) 4 mg Q6H PRN IV 07/10/17 20:00 08/09/17 19:59 Polyethylene (Miralax Powder Packet) 17 gm DAILY PRN PO 07/10/17 20:00 08/09/17 19:59 Miscellaneous (Fentanyl Patch Remove & Waste) 1 ea Q72H N/A 07/11/17 09:59 08/10/17 09:58 07/11/17 09:21 1 EA Miscellaneous Information (Check Fentanyl Patch Placement) 1 ea QS N/A 07/11/17 08:00 08/10/17 07:59 07/12/17 07:23 1 EA Guaifenesin (Robitussin Sugar Free Syrup) 100 mg Q6H PO 07/11/17 14:00 08/10/17 13:29 07/12/17 07:22 100 MG Lidocaine (AneCream 4%) 1 appln Q12 PRN EXT 07/11/17 13:30 08/10/17 13:29 Mirtazapine (Remeron Tab) 7.5 mg HS PO 07/11/17 21:00 08/10/17 20:59 07/11/17 20:43 7.5 MG Potassium Phosphate 15 mmol/ Sodium Chloride 255 ml @ 88 mls/hr ONE ONCE IV 07/12/17 08:30 07/12/17 11:23 07/12/17 08:57 88 MLS/HR Impression (1) Acute renal failure (2) Hypercalcemia (3) Leukopenia (4) Neutropenia Mr. Velez is an 81-year-old male with a confusing hematologic history. He was treated for B cell lymphoma with Rituxan. 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 No evidence of lymph node involvement was appreciated. He has chronic myelodysplasia with neutropenia. He has recent failure to thrive. He has lost significant weight. He is cachetic. He has pronounced generalized weakness. He presented with weakness, slurred speech and flaccid RUE. This improved. He had FLORIN and non PTH mediated hypercalcemia. He is non oliguric. Baseline creatinine is approximately 1 mg/dL. Metabolic profile is otherwise appropriate. The patient is non oliguric by report. He is tolerating IVF. He continues to appear hypovolemic. I will continue IVF with close monitoring. Rajat has declined to consider dialysis. This will not be considered part of the treatment plan. There is no current indication for D[employer]. Recommendations -- Hypercalcemia may be related to malignancy, it is non PTH mediated. Critical illness may also be possible' -- Dehydration is being treated with IVF -- Volume status improving -- Renal function showing early signs of improvement -- Continue IVF for now -- Will follow with goals of care discussion ongoing
[2017-07-12 12:50] VITALS: BP 156/78; PULSE 101; TEMP 36.6; O2SAT 95
--- NOTE | 2017-07-12 14:26 | Progress Note ---
Subjective Date of Service: Jul 12, 2017. Subjective Pt evaluation today including: conversation w/ patient, conversation w/ family , physical exam, chart review, lab review, review of studies, conversation w/ data communications software consultant, review of inpatient medication list Out of bed to the restroom, feel comfortable, however reports significant weakness and fatigue, denies fever and chill, deny cough sputum Problem List Medical Problems: (1) Acute kidney failure Status: Acute (2) B-cell lymphoma Status: Acute (3) Closed head injury Status: Acute (4) Coronary Atherosclerosis Of [place] Coronary Vessel Status: Chronic (5) Fall Status: Acute (6) Hypercalcemia Status: Acute (7) Hypertension Nos Status: Chronic (8) Leukopenia Status: Acute (9) Orthostatic hypotension Status: Acute (10) Scalp laceration Status: Acute (11) Unsteady gait Status: Acute (12) Weakness Status: Acute Review of Systems Constitutional: + weakness, + fatigue, No fever, No chills, No sweats, No weight loss, No problem reported Eyes: No worsening of vision, No eye pain, No redness, No discharge, No diplopia ENT: No hearing loss, No unusual epistaxis, No nasal symptoms, No sore throat, No tinnitus, No dental problems, No trouble swallowing Respiratory: No cough, No sputum, No wheezing, No shortness of breath, No dyspnea on exertion, No dyspnea at rest, No hemoptysis Cardiac: No chest pain, No orthopnea, No PND, No edema, No claudication, No palpitations Abdomen: No pain, No nausea, No vomiting, No diarrhea, No constipation Musculoskeletal: No joint pain, No muscle pain, No swelling, No calf pain Male : No dysuria, No urinary frequency, No incontinence, No nocturia more than once/night, No slowing stream, No hematuria Neurologic: No memory loss, No paralysis, No weakness, No numbness/tingling, No vertigo, No balance problems Psychiatric: No depression symptoms, No anhedonism, No anxiety, No insomnia, No substance abuse Heme: No abnormal bleeding/bruising, No clotting problems, No swollen lymph nodes, No night sweats Endo: No fatigue, No excessive thirst, No excessive urination Skin: No rash, No itch, No new/changing skin lesions, No color change, No bleeding Objective Vital Signs Date Time Temp Pulse Resp B/P (MAP) Pulse Ox O2 Delivery O2 Flow Rate FiO2 07/12/17 12:50 36.6 101 20 156/78 (104) 95 Room Air 07/12/17 08:00 Room Air 07/12/17 07:35 36.8 90 16 150/76 (100) 91 Room Air 07/12/17 04:38 36.8 87 18 152/73 (99) 94 Room Air 07/12/17 04:00 Room Air 07/12/17 00:06 37.0 89 18 155/82 (106) 91 Room Air 07/12/17 00:00 Room Air 07/11/17 20:20 36.5 87 16 144/76 (98) 97 Room Air 07/11/17 20:00 Room Air 07/11/17 16:00 Room Air 07/11/17 15:27 36.6 81 16 141/75 (97) 94 Room Air Physical Exam General Appearance: WD/WN, no apparent distress, + thin, + pertinent finding ( Frail and chronically ill looking,) Eyes: normal inspection, PERRL, EOMI, sclerae normal ENT: normal ENT inspection, hearing grossly normal, pharynx normal Neck: supple, no adenopathy, thyroid normal, no JVD, no carotid bruits, trachea midline Respiratory/Chest: chest non-tender, normal breath sounds, no respiratory distress, no accessory muscle use, + decreased breath sounds Cardiovascular: regular rate, rhythm, no edema, no gallop, no JVD, no murmur Abdomen: normal bowel sounds, non tender, soft, no organomegaly, no pulsatile mass Extremities: normal range of motion, non-tender, normal inspection, no pedal edema, no calf tenderness, normal capillary refill, pelvis stable, + pertinent finding (Trace edema) Neurologic/Psychiatric: software quality assurance engineer II-XII nml as tested, no motor/sensory deficits, alert, normal mood/affect, oriented x 3 Skin: normal color, warm/dry, no rash Lymphatic: no adenopathy Laboratory Results Last 24 Hours Test 07/12/17 05:41 Sodium Level 145 mmol/L Potassium Level 3.1 mmol/L Chloride Level 114 mmol/L Carbon Dioxide Level 27 mmol/L Anion Gap 4.0 mmol/L Blood Urea Nitrogen 39 mg/dl Creatinine 2.77 mg/dl Est Creatinine Clear Calc Drug Dose 16.7 ml/min Estimated GFR () 23.8 Estimated GFR (Non- 20.5 BUN/Creatinine Ratio 13.9 Random Glucose 89 mg/dl Calcium Level 10.1 mg/dl Phosphorus Level 2.0 mg/dl Magnesium Level 2.2 mg/dl Albumin 2.4 gm/dl Assessment and Plan 81-year-old man with B-cell lymphoma, melanoma, CAD, generalized weakness admitted on July 06, 2017 because of acute renal failure with slurred speech and upper extremity weakness B cell lymphoma w/ Rituxan, melanoma, chronic myelodysplasia w/ neutropenia- follows w/ Dr. Trejo: Chronic neutropenia, oncologist, it is very chronic and stable, though the etiology remains obscure. Patient got 1 dose of Neulasta, will be continue periodically for an ANC <250. His last was about 5 weeks ago, Last time of chemotherapy was one and half year ago due to neutropenia Neutropenic precautions Acute kidney failure improving continue IV fluid Hypokalemia, hypo phosphatemia, replace CAD- STABLE Above conditions stable Patient and family request palliative care consult, it was done, however patient and family reported not ready to go home with hospice care yet Right scalp pain history of post heretic hepatic neuralgia, trying Lidoderm cream, is better Dry cough will give Robitussin cough medication, continue Encourage plenty p.o. intake, continue IV fluid Palliative care has completed POLST DNR Stop heparin subcu because of thrombocytopenic Possible discharge patient home tomorrow with home health care and then hospice care if they are ready Continued [facility] stay due to: multiple IV medications needed Discharge planning: home with home health
[2017-07-12 14:49] VITALS: BP 136/76; PULSE 89; TEMP 36.7; O2SAT 96
--- NOTE | 2017-07-12 19:32 | DIAGNOSTIC IMAGING REPORT ---
CT SCAN OF THE CHEST WITHOUT IV CONTRAST CLINICAL HISTORY: Hypercalcemia. COMPARISON STUDY: Chest x-ray dated 07/10/2017. Chest CT dated 06/03/2009. TECHNIQUE: CT scan of the thorax was performed from the thoracic inlet to the upper abdomen. Images are reviewed in the axial, sagittal, and coronal planes. IV contrast was not administered for this examination as per the referring clinician. A dose lowering technique was utilized adhering to the principles of ALARA. The examination is degraded by streak artifact from a left shoulder arthroplasty. CT DOSE: 223.58 mGy.cm FINDINGS: Thyroid: Imaged portions of the thyroid gland are normal in size and attenuation. A 14 mm low-attenuation nodule is seen in the left lobe. Thoracic aorta: There is atherosclerotic calcification of the thoracic aorta, which is normal in caliber and demonstrates standard 3-vessel arch anatomy. Heart: The heart is enlarged and without pericardial effusion. The coronary arteries are densely calcified. Lungs and pleural spaces: Evaluation of the lung parenchyma is degraded by motion artifact. There is no airspace consolidation or pleural effusion. Dependent atelectasis is noted. Nonspecific interstitial thickening and subpleural reticulation are likely related to chronic lung disease. The trachea and central airways are clear. Mediastinum: There is no mediastinal lymphadenopathy. Tonya: Not well assessed without IV contrast. Axillae: There is no axillary lymphadenopathy. Upper abdomen: The spleen is enlarged.. There are numerous hepatic cysts which measure up to 5 cm. Skeletal structures: The skeletal structures are osteopenic. No lytic or blastic bony lesions are seen. A left shoulder arthroplasty is in place. Advanced arthritic change is noted in the right shoulder. Surgical anchors are noted in the right humeral head. IMPRESSION: 1. There is no airspace consolidation or pleural effusion. 2. Cardiomegaly. 3. There is no mediastinal adenopathy. 4. Additional findings as above. Electronically signed by: Tristan Meza M.D. 07/12/2017 7:31 PM Dictated Date/Time: 07/12/2017 7:23 PM
[2017-07-12] MEDS: MIRTAZAPINE TAB 15 MG TAB PO SCH (21:47)
[2017-07-13] VITALS: O2SAT 96
[2017-07-13 00:20] VITALS: BP 157/80; PULSE 94; TEMP 36.6; O2SAT 97
[2017-07-13] MEDS: CHECK FENTANYL PATCH PLACEMENT SCH ×3 (00:38→15:35)
[2017-07-13] MEDS: GUAIFENESIN SUGAR FREE 100 MG/5 ML UDC PO SCH ×4 (02:00→20:00)
[2017-07-13] MEDS: SODIUM CHLORIDE 0.9% 1000ML 1,000 ML IV SCH (02:33)
[2017-07-13 07:16] LABS: CALCIUM 9.3 mg/dl (8.5-10.1); CREATININE 2.62 mg/dl (0.60-1.40); POTASSIUM 3.2 mmol/L (3.5-5.1)
[2017-07-13 07:54] VITALS: BP 157/77; PULSE 92; TEMP 37; O2SAT 96
[2017-07-13] MEDS: METOPROLOL SUCC 25MG EXT REL TAB PO SCH (07:54)
[2017-07-13] MEDS: BuPROPion SR 150 MG TABCR PO SCH (07:54)
[2017-07-13] MEDS: FLUCONAZOLE 100 MG TAB PO SCH (07:54)
[2017-07-13] MEDS: ACYCLOVIR 400 MG TAB PO SCH ×2 (07:54→20:29)
[2017-07-13] MEDS ORDERED: POTASSIUM CHLORIDE 10 MEQ TABCR PO STA ×2 (08:05→08:06)
[2017-07-13] MEDS: MAGNESIUM HYDROXIDE SUSP 30 ML UDC PO PRN (08:05)
[2017-07-13] MEDS ORDERED: POTASSIUM PHOS 3 MMOL/1 ML INFUSION IV STA (08:06)
[2017-07-13] MEDS ORDERED: POTASSIUM PHOSPHATE INJ 15 MMOL in SODIUM CHLORIDE 0.9% 250ML 250 ML IV ONE (08:15)
[2017-07-13] MEDS: SODIUM CHLORIDE 0.45% 1000ML 1,000 ML IV SCH (09:41)
--- NOTE | 2017-07-13 10:39 | Nephrology Progress Note ---
Nephrology Progress Note Date of Service Jul 13, 2017. Chief Complaint FLORIN, hypercalcemia Subjective Mr. Velez was seen & examined in his hospital room this morning. He c/o constipation and has requested a laxative. His and family were visiting at the time of my visit. They indicate that they hope to take Mr. Velez home today with hospice care. Review of Systems Constitutional: No fever Cardiovascular: No chest pain Respiratory: No dyspnea at rest Abdomen: + constipation, No pain, No nausea, No vomiting Extremities: No leg edema A complete review of systems was performed. Pertinent positives are noted above. All other systems are negative. Vital Signs Last 8 Hrs Date Time Temp Pulse Resp B/P (MAP) Pulse Ox O2 Delivery O2 Flow Rate FiO2 07/13/17 07:54 37.0 92 18 157/77 (103) 96 Room Air Last Recorded Weight Weight (Kilograms): 58.100 Physical Exam General Appearance: + thin (frail appearing) Head: atraumatic Eyes: PERRL, EOMI Neck: no adenopathy Respiratory/Chest: lungs clear, no respiratory distress Cardiovascular: regular rate, rhythm Abdomen/GI: normal bowel sounds, non tender, soft Extremities/Musculoskelatal: no calf tenderness, no pedal edema Neurologic/Psych: alert, oriented x 3 Family History Patient reports no known family medical history. Social History Smoking Status: Former smoker Drug Use: none Marital Status: Occupation: retired Laboratory Results Past 24 Hours 07/13/17 06:21 Test 07/12/17 21:09 07/13/17 06:21 Lactate Dehydrogenase 125 U/L (87-241) Anion Gap 8.0 mmol/L (3-11) Est Creatinine Clear Calc Drug Dose 18.2 ml/min Estimated GFR () 25.4 Estimated GFR (Non- 21.9 BUN/Creatinine Ratio 11.9 (10-20) Calcium Level 9.3 mg/dl (8.5-10.1) Phosphorus Level 2.0 mg/dl (2.5-4.9) Magnesium Level 1.8 mg/dl (1.8-2.4) Allergies Coded Allergies: Latex (Verified Allergy, Unknown, RASH, 05/02/17) NO KNOWN DRUG ALLERGIES (Verified Allergy, Unknown, ., 05/02/17) Adhesives (Verified Adverse Reaction, Mild, Tape - rash, 05/02/17) Medications Current Inpatient Medications Medications (Trade) Dose Ordered Sig/Dylan Route Start Time Stop Time Status Last Admin Dose Admin Acyclovir (Zovirax Tab) 400 mg BID PO 07/10/17 21:00 07/20/17 20:59 07/13/17 07:54 400 MG Bupropion HCl (Wellbutrin-Sr Tab) 150 mg QAM PO 07/11/17 09:00 08/10/17 08:59 07/13/17 07:54 150 MG Fentanyl (Duragesic Patch) 12 mcg Q72H TD 07/11/17 10:00 07/25/17 09:59 07/11/17 09:21 12 MCG Fluconazole (Diflucan Tab) 100 mg QAM PO 07/11/17 09:00 07/21/17 08:59 07/13/17 07:54 100 MG Metoprolol Succinate (Toprol Xl Tab) 12.5 mg QAM PO 07/11/17 09:00 08/10/17 08:59 07/13/17 07:54 12.5 MG Nitroglycerin (Nitrostat Tab) 0.4 mg UD PRN UT 07/10/17 20:00 08/09/17 19:59 Oxycodone/ Acetaminophen (Percocet 5-325mg Tab) 1 tab Q4H PRN PO 07/10/17 20:00 07/24/17 19:59 Pantoprazole Sodium (Protonix Tab) 40 mg QAM PRN PO 07/10/17 20:00 08/09/17 19:59 Artificial Tears (Artificial Tears) 1 drops BID PRN OPR 07/10/17 20:00 08/09/17 19:59 Acetaminophen (Tylenol Tab) 650 mg Q4H PRN PO 07/10/17 20:00 08/09/17 19:59 07/12/17 10:08 650 MG Al Hydrox/Mg Hydrox/Simethicone (Maalox Max Susp) 15 ml Q4H PRN PO 07/10/17 20:00 08/09/17 19:59 Magnesium Hydroxide (Milk Of Magnesia Susp) 30 ml Q12H PRN PO 07/10/17 20:00 08/09/17 19:59 07/13/17 08:05 30 ML Zolpidem Tartrate (Ambien Tab) 5 mg HSZ PRN PO 07/10/17 20:00 08/09/17 19:59 Zolpidem Tartrate (Ambien Tab) 5 mg HSZ PRN PO 07/10/17 20:00 08/09/17 19:59 Ondansetron HCl (Zofran Inj) 4 mg Q6H PRN IV 07/10/17 20:00 08/09/17 19:59 Polyethylene (Miralax Powder Packet) 17 gm DAILY PRN PO 07/10/17 20:00 08/09/17 19:59 Miscellaneous (Fentanyl Patch Remove & Waste) 1 ea Q72H N/A 07/11/17 09:59 08/10/17 09:58 07/11/17 09:21 1 EA Miscellaneous Information (Check Fentanyl Patch Placement) 1 ea QS N/A 07/11/17 08:00 08/10/17 07:59 07/13/17 07:55 1 EA Guaifenesin (Robitussin Sugar Free Syrup) 100 mg Q6H PO 07/11/17 14:00 08/10/17 13:29 07/13/17 09:38 100 MG Lidocaine (AneCream 4%) 1 appln Q12 PRN EXT 07/11/17 13:30 08/10/17 13:29 Mirtazapine (Remeron Tab) 7.5 mg HS PO 07/11/17 21:00 08/10/17 20:59 07/12/17 21:47 7.5 MG Sodium Chloride 1,000 ml @ 50 mls/hr Q20H IV 07/13/17 08:02 08/12/17 08:01 07/13/17 09:41 50 MLS/HR Potassium Phosphate 15 mmol/ Sodium Chloride 255 ml @ 102 mls/hr ONE ONCE IV 07/13/17 08:15 07/13/17 10:44 07/13/17 09:38 102 MLS/HR Impression (1) Acute renal failure (2) Hypercalcemia (3) Leukopenia (4) Neutropenia Mr. Velez is an 81-year-old male with a confusing hematologic history. He was treated for B cell lymphoma with Rituxan. 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 No evidence of lymph node involvement was appreciated. He has chronic myelodysplasia with neutropenia. He has recent failure to thrive. He has lost significant weight. He is cachetic. He has pronounced generalized weakness. He presented with weakness, slurred speech and flaccid RUE. This improved. He had FLORIN and non PTH mediated hypercalcemia. He is non oliguric. Baseline creatinine is approximately 1 mg/dL. Metabolic profile is otherwise appropriate. The patient is non oliguric by report. He is tolerating IVF. He continues to appear hypovolemic. I will continue IVF with close monitoring. Rajat has declined to consider dialysis. This will not be considered part of the treatment plan. There is no current indication for BRAN MIXER. Recommendations -- Hypercalcemia may be related to malignancy, it is non PTH mediated. Critical illness may also be possible' -- Hypercalcemia has resolved. IVF has been stopped -- Kidney function is gradually improving -- Family hopes to take Rajat home today w/ hospice. Will sign off. Please call if further assistance is needed
[2017-07-13] MEDS ORDERED: POLYETHYLENE (MIRALAX) 17 GM PACK PO ONE (10:45)
--- NOTE | 2017-07-13 11:21 | Hematology/Oncology Prog Note ---
Hematology/Onc Progress Note Date of Service Jul 13, 2017. Diagnoses Agranulocytosis History of B-cell lymphoma Recent hypercalcemia Medications Medications Administered Medications (Trade) Dose Ordered Sig/Dylan Route Start Time Stop Time Status Last Admin Dose Admin Sodium Chloride 1,000 ml @ 125 mls/hr Q8H STAT IV 07/10/17 16:12 07/10/17 21:32 DC 07/10/17 16:48 125 MLS/HR Sodium Chloride 500 ml @ 999 mls/hr Q31M STAT IV 07/10/17 16:12 07/10/17 16:42 DC 07/10/17 17:59 999 MLS/HR Acyclovir (Zovirax Tab) 400 mg BID PO 07/10/17 21:00 07/20/17 20:59 07/13/17 07:54 400 MG Bupropion HCl (Wellbutrin-Sr Tab) 150 mg QAM PO 07/11/17 09:00 08/10/17 08:59 07/13/17 07:54 150 MG Fentanyl (Duragesic Patch) 12 mcg Q72H TD 07/11/17 10:00 07/25/17 09:59 07/11/17 09:21 12 MCG Fluconazole (Diflucan Tab) 100 mg QAM PO 07/11/17 09:00 07/21/17 08:59 07/13/17 07:54 100 MG Metoprolol Succinate (Toprol Xl Tab) 12.5 mg QAM PO 07/11/17 09:00 08/10/17 08:59 07/13/17 07:54 12.5 MG Sodium Chloride 1,000 ml @ 100 mls/hr Q10H IV 07/10/17 19:46 07/13/17 08:05 DC 07/13/17 02:33 100 MLS/HR Acetaminophen (Tylenol Tab) 650 mg Q4H PRN PO 07/10/17 20:00 08/09/17 19:59 07/12/17 10:08 650 MG Magnesium Hydroxide (Milk Of Magnesia Susp) 30 ml Q12H PRN PO 07/10/17 20:00 08/09/17 19:59 07/13/17 08:05 30 ML Miscellaneous (Fentanyl Patch Remove & Waste) 1 ea Q72H N/A 07/11/17 09:59 08/10/17 09:58 07/11/17 09:21 1 EA Miscellaneous Information (Check Fentanyl Patch Placement) 1 ea QS N/A 07/11/17 08:00 08/10/17 07:59 07/13/17 07:55 1 EA Potassium Chloride (Klor-Con M10) 20 meq NOW STAT PO 07/11/17 08:13 07/11/17 08:18 DC 07/11/17 09:11 20 MEQ Pegfilgrastim (Neulasta Inj) 6 mg ONE ONCE SQ 07/11/17 12:15 07/11/17 12:16 DC 07/11/17 13:07 6 MG Guaifenesin (Robitussin Sugar Free Syrup) 100 mg Q6H PO 07/11/17 14:00 08/10/17 13:29 07/13/17 09:38 100 MG Mirtazapine (Remeron Tab) 7.5 mg HS PO 07/11/17 21:00 08/10/17 20:59 07/12/17 21:47 7.5 MG Potassium Phosphate 15 mmol/ Sodium Chloride 255 ml @ 88 mls/hr ONE ONCE IV 07/12/17 08:30 07/12/17 11:23 DC 07/12/17 08:57 88 MLS/HR Potassium Chloride 100 ml @ 100 mls/hr Q1H IV 07/12/17 08:30 07/12/17 10:29 DC 07/12/17 09:50 100 MLS/HR Sodium Chloride 1,000 ml @ 50 mls/hr Q20H IV 07/13/17 08:02 08/12/17 08:01 07/13/17 09:41 50 MLS/HR Potassium Chloride (Klor-Con M10) 20 meq NOW STAT PO 07/13/17 08:06 07/13/17 08:11 DC 07/13/17 09:38 20 MEQ Potassium Phosphate 15 mmol/ Sodium Chloride 255 ml @ 102 mls/hr ONE ONCE IV 07/13/17 08:15 07/13/17 10:44 DC 07/13/17 09:38 102 MLS/HR Subjective Remains weak. He states he has lost about 20 pounds in the past 6 months. His activity at home has been quite limited. He denies night sweats he denies any fever or chills. Review of Systems: Constitutional: Negative for night sweats, or fever Eyes: Negative for event change of vision ENT: Negative for epistaxis, nasal discharge, sore throat, or deafness Cardiovascular: Negative for chest pain, palpitations, dizziness, diaphoresis Respiratory: Negative for new shortness of breath,hemoptysis, or purulent cough Gastrointestinal: Negative for diarrhea, hematemesis, melena, nausea, vomiting , or dyspepsia Integumentary (skin): Negative for rash or jaundice discoloration Genitourinary: Negative for urinary frequency, hematuria, or dysuria Neurological: Negative for weakness, seizure activity, headache, or dizziness Lymphatic/Hematologic: Negative for petechiae, bleeding or new adenopathy Musculoskeletal: Negative for new joint or back pain Allergic/Immunologic: Negative for unusual rash or pruritis. Vital Signs Vital Signs Past 12 Hours Date Time Temp Pulse Resp B/P (MAP) Pulse Ox O2 Delivery O2 Flow Rate FiO2 07/13/17 08:00 Room Air 07/13/17 07:54 37.0 92 18 157/77 (103) 96 Room Air 07/13/17 00:20 36.6 94 18 157/80 (105) 97 Room Air 07/13/17 00:00 96 Room Air Physical Exam Constitutional: vitals are stable. Eyes: Eyes are JOELLE EOMI without conjuctival erythema or icterus. ENT: External examination was negative for masses. Neck: Negative for masses or palpable thyromegaly Respiratory: Lung sounds were generally clear bilaterally Cardiovascular: Heart was RRR without significant murmur, gallops aoe rubs Gastrointestinal: No palpable hepatic or definite splenomegaly. The abdomen was soft with normal bowel sounds. Lymphatic system: there was no palpable peripheral lymphadenopathy Musculoskeletal System: The musculoskeletal system seemed concordant with age. Skin: The skin was negative for jaundice. Neurologic exam: The exam was negative for any focal findings. Deep tendon reflexes were equal and symmetrical. Psychiatric exam: Was essentially negative with normal mood and effect although somewhat flat in affect. 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 He is now also mildly thrombocytopenic The presentation he in addition on bone marrow only showed changes consistent with a monoclonal lymphomatous process that cleared with Rituxan. CT scans of the chest yesterday without contrast were unremarkable except splenomegaly was noted. At the completion of the Rituxan his spleen was measured at approximately 11-11.5 cm (at the top limits of normal). It is possible that that the hypercalcemia could be secondary to recurrent lymphoma. It did seem to happen rather abruptly but still this could be a cause that could be treated. This was reviewed with and Mrs. Velez today. I suggested that we complete scans of abdominal CT without IV contrast. It may come to doing another bone marrow biopsy if that scan does not lead us in another direction and if he allows us to do that. He is stated in the past he continues to state that if he has to have another bone marrow that he did have to have it with conscious sedation most likely in the OR setting. That was away we accomplished his second bone marrow. He and his family seem willing to move on with that diagnostic proposal. Iw ill order CT abdomen/pelvis without IV contrast.
--- NOTE | 2017-07-13 12:13 | Hospitalist Progress Note ---
Hospitalist Progress Note Date of Service Jul 13, 2017. Subjective Pt evaluation today including: conversation w/ patient, conversation w/ family (, daughter, granddaughter at bedside), physical exam, lab review, review of studies, review of inpatient medication list Voiding: no voiding problems Patient resting in bed. Feeling well. +weakness, but feeling stronger since admission. Ongoing decreased appetite- Remeron started- encouraged PO intake. Denies any pain. Upset that he will not be going home today. No longer wants hospice care at this time. Patient denies any fever, chills, sweats, lightheadedness, dizziness, vision changes, CP, palpitations, edema, SOB, wheezing, cough, abdominal pain, nausea, vomiting, diarrhea, urinary symptoms, melena, numbness/tingling, muscle/joint pain, anxiety/depression, active bleeding, or new skin discoloration/changes. Medications Current Inpatient Medications Medications (Trade) Dose Ordered Sig/Dylan Route Start Time Stop Time Status Last Admin Dose Admin Acyclovir (Zovirax Tab) 400 mg BID PO 07/10/17 21:00 07/20/17 20:59 07/13/17 07:54 400 MG Bupropion HCl (Wellbutrin-Sr Tab) 150 mg QAM PO 07/11/17 09:00 08/10/17 08:59 07/13/17 07:54 150 MG Fentanyl (Duragesic Patch) 12 mcg Q72H TD 07/11/17 10:00 07/25/17 09:59 07/11/17 09:21 12 MCG Fluconazole (Diflucan Tab) 100 mg QAM PO 07/11/17 09:00 07/21/17 08:59 07/13/17 07:54 100 MG Metoprolol Succinate (Toprol Xl Tab) 12.5 mg QAM PO 07/11/17 09:00 08/10/17 08:59 07/13/17 07:54 12.5 MG Nitroglycerin (Nitrostat Tab) 0.4 mg UD PRN UT 07/10/17 20:00 08/09/17 19:59 Oxycodone/ Acetaminophen (Percocet 5-325mg Tab) 1 tab Q4H PRN PO 07/10/17 20:00 07/24/17 19:59 Pantoprazole Sodium (Protonix Tab) 40 mg QAM PRN PO 07/10/17 20:00 08/09/17 19:59 Artificial Tears (Artificial Tears) 1 drops BID PRN OPR 07/10/17 20:00 08/09/17 19:59 Acetaminophen (Tylenol Tab) 650 mg Q4H PRN PO 07/10/17 20:00 08/09/17 19:59 07/12/17 10:08 650 MG Al Hydrox/Mg Hydrox/Simethicone (Maalox Max Susp) 15 ml Q4H PRN PO 07/10/17 20:00 08/09/17 19:59 Magnesium Hydroxide (Milk Of Magnesia Susp) 30 ml Q12H PRN PO 07/10/17 20:00 08/09/17 19:59 07/13/17 08:05 30 ML Zolpidem Tartrate (Ambien Tab) 5 mg HSZ PRN PO 07/10/17 20:00 08/09/17 19:59 Zolpidem Tartrate (Ambien Tab) 5 mg HSZ PRN PO 07/10/17 20:00 08/09/17 19:59 Ondansetron HCl (Zofran Inj) 4 mg Q6H PRN IV 07/10/17 20:00 08/09/17 19:59 Polyethylene (Miralax Powder Packet) 17 gm DAILY PRN PO 07/10/17 20:00 08/09/17 19:59 Miscellaneous (Fentanyl Patch Remove & Waste) 1 ea Q72H N/A 07/11/17 09:59 08/10/17 09:58 07/11/17 09:21 1 EA Miscellaneous Information (Check Fentanyl Patch Placement) 1 ea QS N/A 07/11/17 08:00 08/10/17 07:59 07/13/17 07:55 1 EA Guaifenesin (Robitussin Sugar Free Syrup) 100 mg Q6H PO 07/11/17 14:00 08/10/17 13:29 07/13/17 09:38 100 MG Lidocaine (AneCream 4%) 1 appln Q12 PRN EXT 07/11/17 13:30 08/10/17 13:29 Mirtazapine (Remeron Tab) 7.5 mg HS PO 07/11/17 21:00 08/10/17 20:59 07/12/17 21:47 7.5 MG Sodium Chloride 1,000 ml @ 50 mls/hr Q20H IV 07/13/17 08:02 08/12/17 08:01 07/13/17 09:41 50 MLS/HR Objective Vital Signs Date Time Temp Pulse Resp B/P (MAP) Pulse Ox O2 Delivery O2 Flow Rate FiO2 07/13/17 08:00 Room Air 07/13/17 07:54 37.0 92 18 157/77 (103) 96 Room Air 07/13/17 00:20 36.6 94 18 157/80 (105) 97 Room Air 07/13/17 00:00 96 Room Air 07/12/17 16:00 Room Air 07/12/17 14:49 36.7 89 18 136/76 (96) 96 07/12/17 12:50 36.6 101 20 156/78 (104) 95 Room Air Physical Exam General Appearance: no apparent distress, + cachetic, + thin Eyes: normal inspection, PERRL ENT: hearing grossly normal Neck: supple Respiratory/Chest: lungs clear, no respiratory distress, no accessory muscle use, + decreased breath sounds (throughout ) Cardiovascular: regular rate, rhythm Abdomen: normal bowel sounds, non tender, soft Extremities: no pedal edema, no calf tenderness Neurologic/Psychiatric: alert, normal mood/affect, oriented x 3 Skin: normal color, warm/dry, no rash Laboratory Results Last 24 Hours Test 07/12/17 21:09 07/13/17 06:21 07/13/17 11:22 Lactate Dehydrogenase 125 U/L Sodium Level 148 mmol/L Potassium Level 3.2 mmol/L Chloride Level 116 mmol/L Carbon Dioxide Level 24 mmol/L Anion Gap 8.0 mmol/L Blood Urea Nitrogen 31 mg/dl Creatinine 2.62 mg/dl Est Creatinine Clear Calc Drug Dose 18.2 ml/min Estimated GFR () 25.4 Estimated GFR (Non- 21.9 BUN/Creatinine Ratio 11.9 Random Glucose 88 mg/dl Calcium Level 9.3 mg/dl Phosphorus Level 2.0 mg/dl Magnesium Level 1.8 mg/dl Assessment and Plan 81-year-old man with B-cell lymphoma, melanoma, CAD, generalized weakness presented to the ED with slurred speech and upper extremity weakness, likely related to metabolic encephalopathy rather than neurologic event. B cell lymphoma w/ Rituxan, melanoma, chronic myelodysplasia w/ neutropenia- follows w/ Dr. Trejo: - Neutropenic precautions - Has been off chemotherapy for sometime due to neutropenia- Neulasta SQ injection on 07/11 per oncology recommendations - Hematology/oncology consulted, appreciate recommendations - Palliative care consulted- initially wanted hospice care, but has changed his mind Dehydration and severe protein-calorie malnutrition secondary to decreased appetite, depression: - Remeron 7.5 mg HS started for depression symptoms/decreased appetite - Continue Wellbutrin Hypokalemia: Replace w/ KCL supplement, follow and replace PRN Metabolic encephalopathy likely secondary to dehydration- RESOLVED: - Treating w/ IVF @ 100 ml/hr- decreased to 50 ml/hr today - CXR w/out acute process, UA negative - Head CT w/out acute findings FLORIN due to dehydration- 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
[2017-07-13 12:39] LABS: PTT PATIENT 23.4 SECONDS (21.0-31.0)
[2017-07-13 14:32] VITALS: BP 139/76; PULSE 97; TEMP 37.1; O2SAT 95
[2017-07-13 15:54] LABS: CALCIUM 9.4 mg/dl (8.5-10.1); CREATININE 2.49 mg/dl (0.60-1.40); POTASSIUM 3.8 mmol/L (3.5-5.1)
--- NOTE | 2017-07-13 16:55 | DIAGNOSTIC IMAGING REPORT ---
ABD/PELVIS ORAL CONT ONLY CT DOSE: 292.27 mGy.cm HISTORY: Lymphoma history of lymphoma now with hypercalcemia TECHNIQUE: Multiaxial CT images of the abdomen and pelvis were performed following the use of oral contrast. A dose lowering technique was utilized adhering to the principles of ALARA. COMPARISON STUDY: None. Slight bibasilar interstitial prominence. No significant nodular pathology. Multiple hepatic cysts are present. Gallbladder is negative for distention. Pancreas appears uniform. Kidneys negative for calcification or hydronephrosis. Spleen is top limits normal in terms of size. Atherosclerotic change abdominal aorta with no evidence for aneurysm. Bowel pattern is considered nonobstructive. There is a nonopacified cecum versus a cecal mass measuring 4.5 x 4.8 cm. Endoscopic evaluation is suggested. Generalized ectasia of the iliac vasculature bladder is midline. Mild increase in colonic fecal load with no evidence for obstructive change. No significant abdominal pelvic or inguinal adenopathy. Bladder is midline with no contained calcifications. Mild degenerative changes of the osseous structures throughout. No lytic or blastic process. IMPRESSION: 1. Multiple hepatic cysts. 2. Top limits normal spleen and terms of size. 3. Mild increase in fecal load suggesting mild fecal stasis. 4. Fecal filled cecum versus cecal mass measuring 4.5 x 4.8 cm. 5. Colonoscopy is suggested as follow-up. The above report was generated using voice recognition software. It may contain grammatical, syntax or spelling errors. Electronically signed by: Tyrese Brewer M.D. 07/13/2017 4:54 PM Dictated Date/Time: 07/13/2017 4:48 PM
[2017-07-13] MEDS: MIRTAZAPINE TAB 15 MG TAB PO SCH (20:30)
[2017-07-13 23:37] VITALS: BP 161/84; PULSE 95; TEMP 36.3; O2SAT 98
[2017-07-14] VITALS: O2SAT 96
[2017-07-14] MEDS: GUAIFENESIN SUGAR FREE 100 MG/5 ML UDC PO SCH ×4 (02:00→20:39)
[2017-07-14] MEDS: SODIUM CHLORIDE 0.45% 1000ML 1,000 ML IV SCH (05:15)
[2017-07-14 06:16] LABS: HEMATOCRIT 27.4 % (42-52); HEMOGLOBIN 9.5 g/dL (14.0-18.0); MEAN CELL VOLUME 92.3 fL (80-100); MEAN CORPUSCULAR HGB CONC 34.7 g/dl (32-36); MEAN PLATELET VOLUME 12.3 fL (7.4-10.4); PLATELET COUNT 38 K/uL (130-400); RED CELL DISTRIBUTION WIDTH CV 14.1 % (11.5-14.5); RED CELL DISTRIBUTION WIDTH SD 47.1 fL (36.4-46.3); WHITE BLOOD COUNT 1.99 K/uL (4.8-10.8)
[2017-07-14 06:34] LABS: CALCIUM 9.4 mg/dl (8.5-10.1); CREATININE 2.27 mg/dl (0.60-1.40); PHOSPHORUS 2.1 mg/dl (2.5-4.9); POTASSIUM 3.7 mmol/L (3.5-5.1)
[2017-07-14] MEDS: FLUCONAZOLE 100 MG TAB PO SCH (07:27)
[2017-07-14] MEDS: ACYCLOVIR 400 MG TAB PO SCH ×2 (07:27→20:40)
[2017-07-14] MEDS: BuPROPion SR 150 MG TABCR PO SCH (07:27)
[2017-07-14] MEDS: CHOLECALCIFEROL 1000 INTER.UNIT TAB PO SCH (07:27)
[2017-07-14] MEDS: CHECK FENTANYL PATCH PLACEMENT SCH ×4 (07:30→23:58)
[2017-07-14] MEDS: FENTANYL 12 MCG/HR TDSY TD SCH (07:30)
[2017-07-14] MEDS: METOPROLOL SUCC 25MG EXT REL TAB PO SCH (07:30)
[2017-07-14 07:37] VITALS: BP 130/67; PULSE 82; TEMP 36.8; O2SAT 96
[2017-07-14] MEDS: FENTANYL PATCH REMOVE & WASTE SCH (08:30)
[2017-07-14] MEDS ORDERED: POLYETHYLENE (MIRALAX) 17 GM PACK PO ONE ×2 (10:45→13:00)
--- NOTE | 2017-07-14 12:40 | Hematology/Oncology Prog Note ---
Hematology/Onc Progress Note Date of Service Jul 14, 2017. Diagnoses Agranulocytosis History of B-cell lymphoma Recent hypercalcemia Medications Medications Administered Medications (Trade) Dose Ordered Sig/Dylan Route Start Time Stop Time Status Last Admin Dose Admin Sodium Chloride 1,000 ml @ 125 mls/hr Q8H STAT IV 07/10/17 16:12 07/10/17 21:32 DC 07/10/17 16:48 125 MLS/HR Sodium Chloride 500 ml @ 999 mls/hr Q31M STAT IV 07/10/17 16:12 07/10/17 16:42 DC 07/10/17 17:59 999 MLS/HR Acyclovir (Zovirax Tab) 400 mg BID PO 07/10/17 21:00 07/20/17 20:59 07/14/17 07:27 400 MG Bupropion HCl (Wellbutrin-Sr Tab) 150 mg QAM PO 07/11/17 09:00 08/10/17 08:59 07/14/17 07:27 150 MG Fentanyl (Duragesic Patch) 12 mcg Q72H TD 07/11/17 10:00 07/25/17 09:59 07/14/17 07:30 12 MCG Fluconazole (Diflucan Tab) 100 mg QAM PO 07/11/17 09:00 07/21/17 08:59 07/14/17 07:27 100 MG Metoprolol Succinate (Toprol Xl Tab) 12.5 mg QAM PO 07/11/17 09:00 08/10/17 08:59 07/14/17 07:30 12.5 MG Sodium Chloride 1,000 ml @ 100 mls/hr Q10H IV 07/10/17 19:46 07/13/17 08:05 DC 07/13/17 02:33 100 MLS/HR Acetaminophen (Tylenol Tab) 650 mg Q4H PRN PO 07/10/17 20:00 08/09/17 19:59 07/12/17 10:08 650 MG Magnesium Hydroxide (Milk Of Magnesia Susp) 30 ml Q12H PRN PO 07/10/17 20:00 08/09/17 19:59 07/13/17 08:05 30 ML Miscellaneous (Fentanyl Patch Remove & Waste) 1 ea Q72H N/A 07/11/17 09:59 08/10/17 09:58 07/14/17 08:30 1 EA Miscellaneous Information (Check Fentanyl Patch Placement) 1 ea QS N/A 07/11/17 08:00 08/10/17 07:59 07/14/17 07:30 1 EA Potassium Chloride (Klor-Con M10) 20 meq NOW STAT PO 07/11/17 08:13 07/11/17 08:18 DC 07/11/17 09:11 20 MEQ Pegfilgrastim (Neulasta Inj) 6 mg ONE ONCE SQ 07/11/17 12:15 07/11/17 12:16 DC 07/11/17 13:07 6 MG Guaifenesin (Robitussin Sugar Free Syrup) 100 mg Q6H PO 07/11/17 14:00 08/10/17 13:29 07/13/17 09:38 100 MG Mirtazapine (Remeron Tab) 7.5 mg HS PO 07/11/17 21:00 08/10/17 20:59 07/13/17 20:30 7.5 MG Potassium Phosphate 15 mmol/ Sodium Chloride 255 ml @ 88 mls/hr ONE ONCE IV 07/12/17 08:30 07/12/17 11:23 DC 07/12/17 08:57 88 MLS/HR Potassium Chloride 100 ml @ 100 mls/hr Q1H IV 07/12/17 08:30 07/12/17 10:29 DC 07/12/17 09:50 100 MLS/HR Sodium Chloride 1,000 ml @ 50 mls/hr Q20H IV 07/13/17 08:02 07/14/17 08:42 DC 07/14/17 05:15 50 MLS/HR Potassium Chloride (Klor-Con M10) 20 meq NOW STAT PO 07/13/17 08:06 07/13/17 08:11 DC 07/13/17 09:38 20 MEQ Potassium Phosphate 15 mmol/ Sodium Chloride 255 ml @ 102 mls/hr ONE ONCE IV 07/13/17 08:15 07/13/17 10:44 DC 07/13/17 09:38 102 MLS/HR Polyethylene (Miralax Powder Packet) 17 gm NOW ONCE PO 07/13/17 10:45 07/13/17 10:46 DC 07/13/17 12:18 17 GM Cholecalciferol (Vitamin D Tab) 1,000 inter.unit QAM PO 07/14/17 08:00 08/13/17 07:59 07/14/17 07:27 1,000 INTER.UNIT Polyethylene (Miralax Powder Packet) 17 gm NOW ONCE PO 07/14/17 10:45 07/14/17 10:46 DC 07/14/17 10:53 17 GM Subjective Remains weak. CT scan of the abdomen and pelvis was done yesterday without IV or oral contrast. There is a comment about a potential defect involving the cecal area but there has to be noted limitations in interpretation. Platelet count today is 38,000. There is been no overt bleeding. Review of Systems: Constitutional: Negative for night sweats, or fever. He has had a significant amount of weight loss. His and daughter describe with seems to be a performance status is about 3.0 on ECOG scale Eyes: Negative for event change of vision ENT: Negative for epistaxis, nasal discharge, sore throat, or deafness Cardiovascular: Negative for chest pain, palpitations, dizziness, diaphoresis Respiratory: Negative for new shortness of breath,hemoptysis, or purulent cough Gastrointestinal: Negative for diarrhea, hematemesis, melena, nausea, vomiting , or dyspepsia Integumentary (skin): Negative for rash or jaundice discoloration Neurological: Negative for weakness, seizure activity, headache, or dizziness Lymphatic/Hematologic: Negative for petechiae, bleeding or new adenopathy Musculoskeletal: Negative for new joint or back pain Allergic/Immunologic: Negative for unusual rash or pruritis. Vital Signs Vital Signs Past 12 Hours Date Time Temp Pulse Resp B/P (MAP) Pulse Ox O2 Delivery O2 Flow Rate FiO2 07/14/17 09:38 Room Air 07/14/17 07:37 36.8 82 16 130/67 (88) 96 Room Air Physical Exam Constitutional: vitals are stable. Thin pleasant gentleman Eyes: Eyes are JOELLE EOMI without conjuctival erythema or icterus. ENT: External examination was negative for masses. Neck: Negative for masses or palpable thyromegaly Respiratory: Lung sounds were generally clear bilaterally Gastrointestinal: No palpable hepatic or splenomegaly. The abdomen was soft with normal bowel sounds. Lymphatic system: there was no palpable peripheral lymphadenopathy Musculoskeletal System: The musculoskeletal system seemed concordant with age. Skin: The skin was negative for jaundice. Neurologic exam: The exam was negative for any focal findings. Deep tendon reflexes were equal and symmetrical. Psychiatric exam: Was essentially negative with normal mood and effect. Extremities: negative for edema Laboratory Last 24 Hours Test 07/13/17 15:23 07/14/17 05:46 Sodium Level 144 mmol/L 145 mmol/L Potassium Level 3.8 mmol/L 3.7 mmol/L Chloride Level 114 mmol/L 113 mmol/L Carbon Dioxide Level 24 mmol/L 25 mmol/L Anion Gap 6.0 mmol/L 7.0 mmol/L Blood Urea Nitrogen 31 mg/dl 27 mg/dl Creatinine 2.49 mg/dl 2.27 mg/dl Est Creatinine Clear Calc Drug Dose 19.1 ml/min 21.0 ml/min Estimated GFR () 27.0 30.2 Estimated GFR (Non- 23.3 26.1 BUN/Creatinine Ratio 12.4 11.9 Random Glucose 91 mg/dl 81 mg/dl Calcium Level 9.4 mg/dl 9.4 mg/dl White Blood Count 1.99 K/uL Red Blood Count 2.97 M/uL Hemoglobin 9.5 g/dL Hematocrit 27.4 % Mean Corpuscular Volume 92.3 fL Mean Corpuscular Hemoglobin 32.0 pg Mean Corpuscular Hemoglobin Concent 34.7 g/dl Platelet Count 38 K/uL Mean Platelet Volume 12.3 fL RDW Standard Deviation 47.1 fL RDW Coefficient of Variation 14.1 % Neutrophils % (Manual) 50.9 % Lymphocytes % (Manual) 14.0 % Monocytes % (Manual) 22.8 % Eosinophils % (Manual) 7.0 % Basophils % (Manual) 1.8 % Metamyelocytes % 2.6 % Myelocytes % 0.9 % Neutrophils # (Manual) 1.01 K/uL Total Absolute Neutrophils 1.01 K/uL Lymphocytes # (Manual) 0.28 K/uL Total Absolute Lymphocytes 0.28 K/uL Monocytes # (Manual) 0.45 K/uL Eosinophils # (Manual) 0.14 K/uL Basophils # (Manual) 0.04 K/uL Metamyelocytes # 0.05 K/uL Myelocytes # 0.02 K/uL Toxic Granulation 2+ Toxic Vacuolation 2+ Dohle Bodies 1+ Ovalocytes 1+ Phosphorus Level 2.1 mg/dl Magnesium Level 2.1 mg/dl Assessment & Plan I first met with his and as well as his daughter Shalonda outside of the room. The next diagnostic step would be a bone marrow biopsy. Mr. Velez is always been uncomfortable are very reticent to having another bone marrow biopsy. There was a consensus readout reached outside the room not to pursue a bone marrow biopsy. 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 His performance status is such that he may not tolerate much in the way of therapy. He is always had somewhat of a fatalistic attitude and from time to time has vigorously and politely declined interventions. It was felt not to pursue further studies and diagnostic tests. We then went into the room and reviewed this with Mr. Velez. He agreed and wants to go home. With that then I believe that supportive care continues at home with home health. We plan non further diagnostic studies.
--- NOTE | 2017-07-14 12:41 | Hospitalist Progress Note ---
Hospitalist Progress Note Date of Service Jul 14, 2017. Subjective Pt evaluation today including: conversation w/ patient, conversation w/ family (daughter and ), physical exam, lab review, review of studies, review of inpatient medication list Voiding: no voiding problems Patient ambulated to rest and back to bed without significant difficulty. Patient very upset that he is constipation- requesting MiraLAX. Per RN, has had multiple BMs since last night- given 1 dose MiraLAX now. Patient eating and drinking OK. Abdominal CT showed possible mass vs fecal load. Discussed w/ patient/family. Family is unsure why patient got chest CT and abdominal CT. Stating, "he can' t receive treatment, why are we doing all of this." Family wanted patient to go home on hospice. Discussed w/ family that patient is capable of making own decision so he would need to make that decision. Discussed w/ patient about undergoing colonoscopy if needed to evaluate ? mass or bone marrow biopsy- states he doesn't want further intervention. Discussed w/ patient about his goals- unsure at this time. Family wants it discussed w/ patient about low counts and intolerance to chemotherapy (per family)- believe this should be done by oncology. Per family, patient wants hospice, but still wants to received Neulasta injections as it gives him a "boost"- discuss w/ palliative care tomorrow. +weakness. Patient denies any fever, chills, sweats, lightheadedness, dizziness, vision changes, CP, palpitations, edema, SOB, wheezing, cough, abdominal pain, nausea, vomiting, diarrhea, urinary symptoms, melena, numbness/tingling, muscle/joint pain, anxiety/depression, active bleeding, or new skin discoloration/changes. Medications Current Inpatient Medications Medications (Trade) Dose Ordered Sig/Dylan Route Start Time Stop Time Status Last Admin Dose Admin Acyclovir (Zovirax Tab) 400 mg BID PO 07/10/17 21:00 07/20/17 20:59 07/14/17 07:27 400 MG Bupropion HCl (Wellbutrin-Sr Tab) 150 mg QAM PO 07/11/17 09:00 08/10/17 08:59 07/14/17 07:27 150 MG Fentanyl (Duragesic Patch) 12 mcg Q72H TD 07/11/17 10:00 07/25/17 09:59 07/14/17 07:30 12 MCG Fluconazole (Diflucan Tab) 100 mg QAM PO 07/11/17 09:00 07/21/17 08:59 07/14/17 07:27 100 MG Metoprolol Succinate (Toprol Xl Tab) 12.5 mg QAM PO 07/11/17 09:00 08/10/17 08:59 07/14/17 07:30 12.5 MG Nitroglycerin (Nitrostat Tab) 0.4 mg UD PRN UT 07/10/17 20:00 08/09/17 19:59 Oxycodone/ Acetaminophen (Percocet 5-325mg Tab) 1 tab Q4H PRN PO 07/10/17 20:00 07/24/17 19:59 Pantoprazole Sodium (Protonix Tab) 40 mg QAM PRN PO 07/10/17 20:00 08/09/17 19:59 Artificial Tears (Artificial Tears) 1 drops BID PRN OPR 07/10/17 20:00 08/09/17 19:59 Acetaminophen (Tylenol Tab) 650 mg Q4H PRN PO 07/10/17 20:00 08/09/17 19:59 07/12/17 10:08 650 MG Al Hydrox/Mg Hydrox/Simethicone (Maalox Max Susp) 15 ml Q4H PRN PO 07/10/17 20:00 08/09/17 19:59 Magnesium Hydroxide (Milk Of Magnesia Susp) 30 ml Q12H PRN PO 07/10/17 20:00 08/09/17 19:59 07/13/17 08:05 30 ML Zolpidem Tartrate (Ambien Tab) 5 mg HSZ PRN PO 07/10/17 20:00 08/09/17 19:59 Zolpidem Tartrate (Ambien Tab) 5 mg HSZ PRN PO 07/10/17 20:00 08/09/17 19:59 Ondansetron HCl (Zofran Inj) 4 mg Q6H PRN IV 07/10/17 20:00 08/09/17 19:59 Polyethylene (Miralax Powder Packet) 17 gm DAILY PRN PO 07/10/17 20:00 08/09/17 19:59 Miscellaneous (Fentanyl Patch Remove & Waste) 1 ea Q72H N/A 07/11/17 09:59 08/10/17 09:58 07/14/17 08:30 1 EA Miscellaneous Information (Check Fentanyl Patch Placement) 1 ea QS N/A 07/11/17 08:00 08/10/17 07:59 07/14/17 07:30 1 EA Guaifenesin (Robitussin Sugar Free Syrup) 100 mg Q6H PO 07/11/17 14:00 08/10/17 13:29 07/13/17 09:38 100 MG Lidocaine (AneCream 4%) 1 appln Q12 PRN EXT 07/11/17 13:30 08/10/17 13:29 Mirtazapine (Remeron Tab) 7.5 mg HS PO 07/11/17 21:00 08/10/17 20:59 07/13/17 20:30 7.5 MG Cholecalciferol (Vitamin D Tab) 1,000 inter.unit QAM PO 07/14/17 08:00 08/13/17 07:59 07/14/17 07:27 1,000 INTER.UNIT Objective Vital Signs Date Time Temp Pulse Resp B/P (MAP) Pulse Ox O2 Delivery O2 Flow Rate FiO2 07/14/17 09:38 Room Air 07/14/17 07:37 36.8 82 16 130/67 (88) 96 Room Air 07/14/17 00:00 96 Room Air 07/13/17 23:37 36.3 95 20 161/84 (109) 98 Room Air 07/13/17 16:09 Room Air 07/13/17 14:32 37.1 97 20 139/76 (97) 95 Room Air Physical Exam General Appearance: no apparent distress, + cachetic, + thin Eyes: normal inspection, PERRL ENT: hearing grossly normal Neck: supple Respiratory/Chest: lungs clear, no respiratory distress, no accessory muscle use, + decreased breath sounds (throughout) Cardiovascular: regular rate, rhythm Abdomen: normal bowel sounds, non tender, soft Extremities: no pedal edema, no calf tenderness Neurologic/Psychiatric: alert, normal mood/affect, oriented x 3 Skin: normal color, warm/dry, no rash Laboratory Results Last 24 Hours Test 07/13/17 15:23 07/14/17 05:46 Sodium Level 144 mmol/L 145 mmol/L Potassium Level 3.8 mmol/L 3.7 mmol/L Chloride Level 114 mmol/L 113 mmol/L Carbon Dioxide Level 24 mmol/L 25 mmol/L Anion Gap 6.0 mmol/L 7.0 mmol/L Blood Urea Nitrogen 31 mg/dl 27 mg/dl Creatinine 2.49 mg/dl 2.27 mg/dl Est Creatinine Clear Calc Drug Dose 19.1 ml/min 21.0 ml/min Estimated GFR () 27.0 30.2 Estimated GFR (Non- 23.3 26.1 BUN/Creatinine Ratio 12.4 11.9 Random Glucose 91 mg/dl 81 mg/dl Calcium Level 9.4 mg/dl 9.4 mg/dl White Blood Count 1.99 K/uL Red Blood Count 2.97 M/uL Hemoglobin 9.5 g/dL Hematocrit 27.4 % Mean Corpuscular Volume 92.3 fL Mean Corpuscular Hemoglobin 32.0 pg Mean Corpuscular Hemoglobin Concent 34.7 g/dl Platelet Count 38 K/uL Mean Platelet Volume 12.3 fL RDW Standard Deviation 47.1 fL RDW Coefficient of Variation 14.1 % Neutrophils % (Manual) 50.9 % Lymphocytes % (Manual) 14.0 % Monocytes % (Manual) 22.8 % Eosinophils % (Manual) 7.0 % Basophils % (Manual) 1.8 % Metamyelocytes % 2.6 % Myelocytes % 0.9 % Neutrophils # (Manual) 1.01 K/uL Total Absolute Neutrophils 1.01 K/uL Lymphocytes # (Manual) 0.28 K/uL Total Absolute Lymphocytes 0.28 K/uL Monocytes # (Manual) 0.45 K/uL Eosinophils # (Manual) 0.14 K/uL Basophils # (Manual) 0.04 K/uL Metamyelocytes # 0.05 K/uL Myelocytes # 0.02 K/uL Toxic Granulation 2+ Toxic Vacuolation 2+ Dohle Bodies 1+ Ovalocytes 1+ Phosphorus Level 2.1 mg/dl Magnesium Level 2.1 mg/dl Assessment and Plan 81-year-old man with B-cell lymphoma, melanoma, CAD, generalized weakness presented to the ED with slurred speech and upper extremity weakness, likely related to metabolic encephalopathy rather than neurologic event. B cell lymphoma treated w/ Rituxan, melanoma, chronic myelodysplasia w/ neutropenia- follows w/ Dr. Maya: - Neutropenic precautions - Has been off chemotherapy for sometime due to neutropenia- Neulasta SQ injection on 07/11 per oncology recommendations - Hematology/oncology consulted, appreciate recommendations- abdominal CT w/ ? mass- no further intervention/treatment - Palliative care consulted- initially wanted hospice care, but has changed his mind- wants to still receive Neulasta injections Dehydration and severe protein-calorie malnutrition secondary to decreased appetite, depression- STABLE: - Remeron 7.5 mg HS started for depression symptoms/decreased appetite - Continue Wellbutrin Hypokalemia- RESOLVED: Replace w/ KCL supplement, follow and replace PRN Hypophosphatemia: Replacing w/ IV phosphorus supplement, follow and replace PRN Metabolic encephalopathy likely secondary to dehydration- RESOLVED: - Treating w/ IVF @ 100 ml/hr- decreased to 50 ml/hr today - CXR w/out acute process, UA negative - Head CT w/out acute findings FLORIN due to dehydration- baseline vp delivery 1.0- IMPROVING: - [employer]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
[2017-07-14] MEDS ORDERED: POTASSIUM PHOS 3 MMOL/1 ML INFUSION IV ONE (12:45)
[2017-07-14] MEDS ORDERED: POTASSIUM PHOSPHATE INJ 21 MMOL in SODIUM CHLORIDE 0.9% 500ML 500 ML IV ONE (13:00)
[2017-07-14 14:50] VITALS: BP 145/75; PULSE 93; TEMP 36.8; O2SAT 95
[2017-07-14] MEDS: MAGNESIUM HYDROXIDE SUSP 30 ML UDC PO PRN (17:02)
[2017-07-14] MEDS: MIRTAZAPINE TAB 15 MG TAB PO SCH (20:41)
[2017-07-14] MEDS: ACETAMINOPHEN 325 MG TAB PO PRN (20:45)
[2017-07-15] VITALS: O2SAT 96
[2017-07-15 00:11] VITALS: BP 122/50; PULSE 94; TEMP 36.5; O2SAT 94
[2017-07-15] MEDS: GUAIFENESIN SUGAR FREE 100 MG/5 ML UDC PO SCH ×3 (02:45→08:11)
[2017-07-15 07:18] LABS: CALCIUM 9.4 mg/dl (8.5-10.1); CREATININE 2.23 mg/dl (0.60-1.40); PHOSPHORUS 2.5 mg/dl (2.5-4.9); POTASSIUM 3.5 mmol/L (3.5-5.1)
[2017-07-15 07:41] VITALS: BP 122/67; PULSE 86; TEMP 36.6; O2SAT 94
[2017-07-15] MEDS: METOPROLOL SUCC 25MG EXT REL TAB PO SCH (08:09)
[2017-07-15] MEDS: CHOLECALCIFEROL 1000 INTER.UNIT TAB PO SCH (08:10)
[2017-07-15] MEDS: ACYCLOVIR 400 MG TAB PO SCH (08:10)
[2017-07-15] MEDS: FLUCONAZOLE 100 MG TAB PO SCH (08:10)
[2017-07-15] MEDS: BuPROPion SR 150 MG TABCR PO SCH (08:10)
[2017-07-15] MEDS: CHECK FENTANYL PATCH PLACEMENT SCH (08:11)
--- NOTE | 2017-07-15 11:47 | Palliative Care Progress Note ---
Palliative Care Progress Note Date of Service Jul 15, 2017. Subjective Pt evaluation today including: conversation w/ patient, conversation w/ family , physical exam Pain: no pain complaints Voiding: no voiding problems (patient urinating in the toilet) Patient evaluated today for follow up. Dr. Monson evaluated the patient over the weekend and had a lengthy conversation with the patient and family. This patient has poor prognosis and has decided against any further diagnostic tests or treatment. Upon assessment, the patient was lying in bed, but then awoke. I was able to see him ambulate to the bathroom with assistance from a walker and proceeded to urinate and then wash himself up while standing at the sink. He has stated that he still does want to go home and is receptive of 'Hospice' if we call it 'palliative' which I think is appropriate for him. Based on his current mentation and ambulation status, I believe a transition from home health to hospice will work well for this patient and family. Case management is aware and will proceed with arranging. A POLST form was filled out at the bedside with the patient and family. Review of Systems Patient denies SOB, CP, palpitations, dizziness, BONILLA, edema, pain. Objective Vital Signs Date Time Temp Pulse Resp B/P (MAP) Pulse Ox O2 Delivery O2 Flow Rate FiO2 07/15/17 07:41 36.6 86 18 122/67 (85) 94 Room Air 07/15/17 00:11 36.5 94 18 122/50 (74) 94 Room Air 07/15/17 00:00 96 Room Air 07/14/17 16:03 Room Air 07/14/17 14:50 36.8 93 20 145/75 (98) 95 Room Air Physical Exam General Appearance: no apparent distress Respiratory/Chest: chest non-tender, lungs clear, normal breath sounds, no respiratory distress, no accessory muscle use Cardiovascular: regular rate, rhythm, no edema, no gallop, no JVD, no murmur Abdomen: normal bowel sounds, non tender, soft Neurologic/Psychiatric: oriented x 3 Skin: warm/dry Laboratory Results Last 24 Hours Test 07/15/17 06:25 Sodium Level 147 mmol/L Potassium Level 3.5 mmol/L Chloride Level 113 mmol/L Carbon Dioxide Level 26 mmol/L Anion Gap 8.0 mmol/L Blood Urea Nitrogen 21 mg/dl Creatinine 2.23 mg/dl Est Creatinine Clear Calc Drug Dose 21.1 ml/min Estimated GFR () 30.9 Estimated GFR (Non- 26.6 BUN/Creatinine Ratio 9.4 Random Glucose 89 mg/dl Calcium Level 9.4 mg/dl Phosphorus Level 2.5 mg/dl Magnesium Level 2.3 mg/dl Assessment and Plan Palliative Care Encounter Goals of Care B-Cell Lymphoma Cachexia Palliative Care Recommendations: - Patient to remain DNR/DNI -Goals for returning home were stated strongly from the patient and family. We discussed the amount of care that he may need and family expressed being able to support the arrangement of 24 hour care, if needed, down the line. -Case management to arrange Home Health with a bridge to Hospice when needed by the patient. -A POLST form was filled out with the patient and family at the bedside. Palliative Performance Scale: 50 % Continued [facility] stay due to: multiple IV medications needed Discharge planning: home with home health Counseling and Coordination Total time spent 35 minutes with > 50% of that time assessing the patient and discussing GOALS of CARE with the patient and family, along with filling out a POLST form at the bedside.
[2017-07-15] MEDS ORDERED: RMR15 PO (12:15)
[2017-07-15] MEDS ORDERED: FLUC200T4 PO (12:15)
--- NOTE | 2017-07-15 12:23 | Discharge Instructions ---
Discharge Instructions Date of Service Jul 15, 2017. Admission Reason for Admission: Acute Renal Failure Discharge Discharge Diagnosis / Problem: Acute Renal Failure/Dehydration Discharge Goals Goal(s): Decrease discomfort, Improve function, Increase independence Activity Recommendations Activity Limitations: resume your previous activity . Instructions / Follow-Up Instructions / Follow-Up Lymphoma: - Your blood counts are slowly coming up but you will still be at risk for infection. The best prevention is washing hands and staying away from those that are sick. - Your platelets are low so watch for bruising and call you doctor if you notice a lot of it. - You can continue your medicine to prevent infection such as your Acyclovir and Diflucan -- Did send a script for a reduced dose of Diflucan. This was dosed based on your kidney function. You will take 100 mg daily instead of 200 mg because it will take longer to process through your system. Sleep and Appetite: - We started a medication called Remeron. This is to help you sleep and can make you more hungry. If this medication is tolerated it can be increased if necessary. - Take Remeron 7.5 mg nightly Constipation: - Please continue your Miralax to keep your bowels regular. Please discuss with your doctor if you need something different. Can even use this twice a day if necessary Home Medications: - All home medications were continued as previously prescribed except the change to your Diflucan. Current Hospital Diet Patient's current hospital diet: Regular Diet Discharge Diet Recommended Diet: Regular Diet Pending Studies Studies pending at discharge: no Medical Emergencies . Who to Call and When: Medical Emergencies: If at any time you feel your situation is an emergency, please call 911 immediately. . Non-Emergent Contact Non-Emergency issues call your: Primary Care Provider Call Non-Emergent contact if: you have a fever, your pain is concerning you, you have any medication questions . . "Provider Documentation" section prepared by Monique Victor. .
[2017-07-15 12:51] VITALS: BP 122/67; PULSE 86; TEMP 36.6; O2SAT 94
--- NOTE | 2017-07-15 14:39 | Discharge Summary ---
Discharge Summary Date of Service Jul 15, 2017. Discharge Summary Admission Date: Jul 10, 2017 at 20:17 Discharge Date: Jul 15, 2017 Discharge Disposition: Home with services Principal Diagnosis: FLORIN 2/2 Dehydration Problems/Secondary Diagnoses: (1) Coronary Atherosclerosis Of [place] Coronary Vessel Status: Chronic (2) Hypertension Nos Status: Chronic Immunizations: Have You Had Influenza Vaccine: Yes Influenza Vaccine Date: Dec 23, 2013 History of Tetanus Vaccine?: Yes Tetanus Immunization Date: Dec 17, 2011 History of Pneumococcal: Unknown Pneumococcal Date: Mar 14, 2010 History of Hepatitis B Vaccine: Unknown Procedures: CT HEAD WITHOUT CONTRAST (CT) FINDINGS: No intra or extra-axial mass lesions are visualized. There is no CT evidence of acute cortical infarction. There is no evidence of midline shift. There is no acute hemorrhage. No calvarial fractures are visualized. There are minimal white matter hypodensities likely on a small vessel basis. There is mild ventricular dilatation. This has slowly progressed when compared the prior studies. This is likely secondary to global volume loss. There is no evidence of acute sinusitis IMPRESSION: No acute intracranial findings RENAL ULTRASOUND TECHNIQUE: Sonography of the kidneys and the urinary bladder was performed. FINDINGS: The right kidney measures 10.3 x 4.5 x 4.4 cm and the left kidney measures 9.1 x 5.1 x 4 cm. There is no hydronephrosis. Renal echogenicity, size and cortical thickness are normal. Note is made of a punctate echogenic focus projecting over the right ureterovesical junction. This is equivocal for a nonobstructing UVJ calculus. The prostate is mildly enlarged. Incidental note is made of several hepatic cysts. Neither ureteral jet was identified. IMPRESSION: 1. No hydronephrosis. 2. Punctate echogenic focus projecting over the right ureterovesical junction without hydronephrosis. Artifact is favored however a nonobstructing calculus could appear similar. CT SCAN OF THE CHEST WITHOUT IV CONTRAST FINDINGS: Thyroid: Imaged portions of the thyroid gland are normal in size and attenuation. A 14 mm low-attenuation nodule is seen in the left lobe. Thoracic aorta: There is atherosclerotic calcification of the thoracic aorta, which is normal in caliber and demonstrates standard 3-vessel arch anatomy. Heart: The heart is enlarged and without pericardial effusion. The coronary arteries are densely calcified. Lungs and pleural spaces: Evaluation of the lung parenchyma is degraded by motion artifact. There is no airspace consolidation or pleural effusion. Dependent atelectasis is noted. Nonspecific interstitial thickening and subpleural reticulation are likely related to chronic lung disease. The trachea and central airways are clear. Mediastinum: There is no mediastinal lymphadenopathy. Tonya: Not well assessed without IV contrast. Axillae: There is no axillary lymphadenopathy. Upper abdomen: The spleen is enlarged.. There are numerous hepatic cysts which measure up to 5 cm. Skeletal structures: The skeletal structures are osteopenic. No lytic or blastic bony lesions are seen. A left shoulder arthroplasty is in place. Advanced arthritic change is noted in the right shoulder. Surgical anchors are noted in the right humeral head. IMPRESSION: 1. There is no airspace consolidation or pleural effusion. 2. Cardiomegaly. 3. There is no mediastinal adenopathy. 4. Additional findings as above. ABD/PELVIS ORAL CONT ONLY Slight bibasilar interstitial prominence. No significant nodular pathology. Multiple hepatic cysts are present. Gallbladder is negative for distention. Pancreas appears uniform. Kidneys negative for calcification or hydronephrosis. Spleen is top limits normal in terms of size. Atherosclerotic change abdominal aorta with no evidence for aneurysm. Bowel pattern is considered nonobstructive. There is a nonopacified cecum versus a cecal mass measuring 4.5 x 4.8 cm. Endoscopic evaluation is suggested. Generalized ectasia of the iliac vasculature bladder is midline. Mild increase in colonic fecal load with no evidence for obstructive change. No significant abdominal pelvic or inguinal adenopathy. Bladder is midline with no contained calcifications. Mild degenerative changes of the osseous structures throughout. No lytic or blastic process. IMPRESSION: 1. Multiple hepatic cysts. 2. Top limits normal spleen and terms of size. 3. Mild increase in fecal load suggesting mild fecal stasis. 4. Fecal filled cecum versus cecal mass measuring 4.5 x 4.8 cm. 5. Colonoscopy is suggested as follow-up. Consultations: 1. Nephrology 2. Hematology/Oncology 3. Palliative Care Medication Reconciliation New Medications: Mirtazapine (Mirtazapine) 15 Mg Tab 7.5 MG PO HS for 30 Days, #15 TAB Changed Medications: Fluconazole (Diflucan) 200 Mg Tab 100 MG PO QAM for 30 Days, #15 TABS (Changed from: 200 MG) Continued Medications: Acyclovir (Acyclovir) 400 Mg Tab 400 MG PO BID Bupropion HCl (Bupropion HCl Sr) 150 Mg Tabcr 150 MG PO QAM Fentanyl (Fentanyl) 12 Mcg Tdsy 1 PATCH TOP [id number] Metoprolol Succinate (Metoprolol Succinate ER) 25 Mg Tabcr 12.5 MG PO QAM Multiple Vitamins W/ Minerals (Centrum Silver 50+Men) 1 Tab Tab 1 TAB PO DAILY Nitroglycerin (Nitrostat) 0.4 Mg Tab 0.4 MG UT UD PRN for Chest Pain Oxycodone/Acetaminophen 5MG/325MG (Oxycodone/Acetaminophen 5MG/325MG) 1 Tab Tab 1 TAB PO Q4-6 HRS PRN for Pain Pantoprazole Sodium (Protonix) 40 Mg Tab 40 MG PO QAM PRN for Indigestion Polyvinyl Alcohol-Povidone (Op (Refresh) 1 Gabriel Gabriel 1 DROP OPR BID PRN for Dryness Silodosin (Rapaflo) 4 Mg Cap 4 MG PO HS TAKE THIS MEDICATION WITH FOOD Discharge Exam Review of Systems: Constitutional: No fever, No chills, No fatigue ENT: No nasal symptoms Respiratory: No cough, No shortness of breath Cardiovascular: No chest pain Abdomen: No pain, No nausea, No vomiting, No diarrhea, No constipation Musculoskeletal: No swelling, No calf pain Genitourinary - Male: No dysuria Hematologic / Lymphatic: No abnormal bleeding/bruising Integumentary: No rash Physical Exam: General Appearance: no apparent distress, + cachetic Eyes: sclerae normal ENT: hearing grossly normal Neck: supple, no JVD, trachea midline Respiratory/Chest: lungs clear, no respiratory distress, no accessory muscle use Cardiovascular: regular rate, rhythm, + systolic murmur Abdomen / GI: normal bowel sounds, non tender, soft Extremities: no pedal edema Neurologic/Psychiatric: alert Skin: normal color, warm/dry Hospital Course ADMISSION: 81 years old man with history of B-cell lymphoma, melanoma, CAD herpes, depression and cachexia. Patient is currently off chemotherapy, family likely are considering palliative care. In the last few months patient has been getting progressively weak, decreased appetite, decreased oral intake, status post fall about 2 months ago no fractures. Continues to have generalized severe weakness. Today patient had slurred speech and flaccid right arm. As per they were not able to understand what he saying. He was brought to the ED for further evaluation and all his symptoms resolved after IV fluid hydration he was found to have hypercalcemia and acute kidney injury. Patient will be admitted for further evaluation and management. Patient wishes to be DO NOT RESUSCITATE. His is open to the suggestion of consulting palliative care. Admits to some productive cough but denies any chest pain or shortness of breath more than usual. Complains of constipation HOSPITAL COURSE: B Cell Lymphoma/Melanoma/Chronic Myelodysplasia with Neutropenia: Follows with Dr. Trejo - Has been neutropenic but labs slowly improving - platelets low at 38 but not bruising or signs of bleeding - Has been off chemotherapy for awhile due to laboratories - Last Neulast on - Evidence of a possible mass - decision for no further work-up/intervention - Palliative care followed - plans to return home with services with a palliative approach but can ultimately convert to Hospice when the time comes - Currently patient is pain free and can continues previously prescribed pain medications and prophylactic medications - ultimately when Hospice is decided on these medications can ultimately be discontinued Metabolic Encephalopathy 2/2 Dehydration and Severe Protein-Calorie Malnutrition 2/2 Decreased Appetite and Depression: - Family noticed an improvement in Remeron - continue at 7.5 mg HS and if not sedating could continue to trend upwards FLORIN 2/2 Dehydration: IMPROVING - Baseline appears to be around 1 and currently at 2.23 - would recommend to avoid nephrotoxins when able but no further intervention necessary given palliative approach - Renally dosed his Diflucan from 200 mg daily to 100 mg daily Constipation: - Patient feels the most comfortable with 3-4 BMs a day - continue Miralax as needed Code Status: DNR Disposition: - Home with home services with an agency that can convert to Hospice when the time comes; POLST form completed Total Time Spent: Greater than 30 minutes This includes examination of the patient, discharge planning, medication reconciliation, and communication with other providers. Discharge Instructions Please refer to the electronic Patient Visit Report (Discharge Instructions) for additional information. Additional Copies To Timmy Ballesteros M.D.
== END 2017-07-15 13:30 | disposition home health service (06) | DRG 682 ==
LOC: EDBD 15:46 → C.EDA 15:47 → C.MED 20:17 → ENRESERV 20:35 → C.4E 07-12 12:53
PROVIDERS: ADMIT Internal Medicine; ATTEND Internal Medicine
DX: N17.9 Acute kidney failure, unspecified (principal); G93.41 Metabolic encephalopathy; E43 Unspecified severe protein-calorie malnutrition; C85.10 Unspecified B-cell lymphoma, unspecified site; R64 Cachexia; Z51.5 Encounter for palliative care; I25.10 Atherosclerotic heart disease of native coronary artery without angina pectoris; I10 Essential (primary) hypertension; E83.52 Hypercalcemia; D70.9 Neutropenia, unspecified; Z66 Do not resuscitate; C43.9 Malignant melanoma of skin, unspecified; K59.00 Constipation, unspecified; Z96.659 Presence of unspecified artificial knee joint; E86.0 Dehydration; Z92.21 Personal history of antineoplastic chemotherapy; Z91.040 Latex allergy status